=== PATIENT | male | born 1960 | race Caucasian/White ===

== ENCOUNTER 2017-11-23 09:32 | Inpatient (IN) | payer MEDICAID, OTHER ==
[~2017-11-23] VITALS: Ht 181.6 cm; Wt 165.9 kg
[2017-11-23] MEDS ORDERED: SODIUM CHLORIDE FLUSH 10ML SYR IVF ONE (10:00)
[2017-11-23 10:13] LABS: BASOPHILS # (AUTO) 0.05 x10^3/uL (0-0.1); BASOPHILS % (AUTO) 1 % (0-1); EOSINOPHILS # (AUTO) 0.15 x10^3/uL (0-0.4); EOSINOPHILS % (AUTO) 2 % (1-7); LYMPHOCYTES # (AUTO) 1.17 x10^3/uL (1-3.4); LYMPHOCYTES % (AUTO) 17 % (22-44); MD NO; MEAN CORPUSCULAR HEMOGLOBIN 27.8 pg (27.5-34.5); MEAN CORPUSCULAR HGB CONC 33.7 g/dL (33.2-36.2); MEAN CORPUSCULAR VOLUME 82.5 fL (81-97); MEAN PLATELET VOLUME 8.1 fL (7.4-10.4); MONOCYTES # (AUTO) 0.38 x10^3/uL (0.2-0.8); MONOCYTES % (AUTO) 6 % (2-9); NEUTROPHILS # (AUTO) 5.16 x10^3/uL (1.8-6.8); NEUTROPHILS % (AUTO) 75 % (42-75); PLATELET COUNT 248 x10^3/uL (130-400); RED BLOOD COUNT 5.57 x10^6/uL (4.38-5.82); RED CELL DISTRIBUTION WIDTH 14.7 % (9.4-14.8)
[2017-11-23] MEDS ORDERED: VANCOMYCIN PER PHARMACY MC ONE (10:30)
[2017-11-23] MEDS ORDERED: AMPICILLIN/SULBACTAM 3 GM in SODIUM CHLORIDE 0.9% 100 ML IV ONE (10:30)
[2017-11-23 10:38] LABS: ALBUMIN 3.5 g/dL (3.4-5.0); ANION GAP 8 mmol/L (5-15); CALCIUM 9.1 mg/dL (8.5-10.1); CHLORIDE 109 mmol/L (98-107)
[2017-11-23 10:42] LABS: ALANINE AMINOTRANSFERASE 26 U/L (12-78); ALKALINE PHOSPHATASE 83 U/L (45-117); BILIRUBIN,TOTAL 1.3 mg/dL (0.2-1.0)
[2017-11-23] MEDS ORDERED: VANCOMYCIN 2,300 MG in SODIUM CHLORIDE 0.9% 500 ML IV ONE (11:30)
[2017-11-23] MEDS ORDERED: ENALAPRILAT 1.25 MG/ML, 2ML IV ONE (12:30)
[2017-11-23] MEDS ORDERED: FUROSEMIDE 20 MG/2 ML IV ONE (12:30)
[2017-11-23] MEDS ORDERED: FUROSEMIDE 40 MG/4 ML ONE (12:31)
[2017-11-23] MEDS ORDERED: ENALAPRILAT 1.25 MG/ML, 2ML ONE (12:31)
[2017-11-23] MEDS ORDERED: hydrALAzine 20 MG/ML, 1ML ONE (12:59)
[2017-11-23] MEDS ORDERED: hydrALAzine 20 MG/ML, 1ML IV ONE (13:00)
[2017-11-23] MEDS ORDERED: hydrALAzine 20 MG/ML, 1ML IVPush PRN (13:30)
[2017-11-23] MEDS ORDERED: BISACODYL 10 MG SUPP PR PRN (13:30)
[2017-11-23] MEDS ORDERED: ONDANSETRON 2MG/ML, 2ML IVPush PRN (13:30)
[2017-11-23] MEDS ORDERED: LABETALOL 5MG/ML, 20ML IVPush PRN (13:30)
[2017-11-23] MEDS ORDERED: ACETAMINOPHEN 325 MG TABLET PO PRN (13:30)
[2017-11-23] MEDS ORDERED: DOCUSATE 100 MG CAPSULE PO PRN (13:30)
[2017-11-23] MEDS ORDERED: POLYETHYLENE GLYCOL 17 GM PACKET PO PRN (13:30)
[2017-11-23 13:43] LABS: TROPONIN I < 0.015 ng/mL (0.000-0.045)
[2017-11-23] MEDS ORDERED: VANCOMYCIN PER PHARMACY MC PRN (14:00)
[2017-11-23 14:08] LABS: INTERNATIONAL NORMALIZED RATIO 1.08 (0.93-1.1); PROTHROMBIN TIME 11.2 Seconds (9.6-11.5)
[2017-11-23 14:20] LABS: THYROID STIMULATING HORMONE 1.75 mIU/L (0.358-3.740)
[2017-11-23 14:26] LABS: HEMOGLOBIN A1C 6.6 % (4.2-6.3)
[2017-11-23 14:45] VITALS: BP 175/100
[2017-11-23] MEDS: HEPARIN 5,000 UNITS/ML, 1ML SQ SCH ×2 (15:01→23:27)
[2017-11-23 16:45] VITALS: BP 180/88
[2017-11-23] MEDS: FUROSEMIDE 20 MG/2 ML IV SCH (17:10)
[2017-11-23] MEDS: AMPICILLIN/SULBACTAM 3 GM in SODIUM CHLORIDE 0.9% 100 ML IV SCH ×2 (17:11→23:27)
[2017-11-23] MEDS: POTASSIUM CHLORIDE 20 MEQ TAB.ER.PRT PO SCH (17:17)
[2017-11-23] MEDS ORDERED: OMNIPAQUE 350 MG/ML, 150 ML BOTTLE ONE (17:53)
[2017-11-23 19:19] LABS: TROPONIN I < 0.015 ng/mL (0.000-0.045)
[2017-11-23 20:00] VITALS: BP 188/84
[2017-11-24] VITALS (7 sets, daily range): BP systolic 87–182; BP diastolic 54–106
[2017-11-24] MEDS: VANCOMYCIN 2,000 MG in SODIUM CHLORIDE 0.9% 500 ML IV SCH ×2 (00:27→12:17)
[2017-11-24 02:17] LABS: BASOPHILS # (AUTO) 0.04 x10^3/uL (0-0.1); BASOPHILS % (AUTO) 1 % (0-1); EOSINOPHILS # (AUTO) 0.21 x10^3/uL (0-0.4); EOSINOPHILS % (AUTO) 2 % (1-7); LYMPHOCYTES # (AUTO) 1.89 x10^3/uL (1-3.4); LYMPHOCYTES % (AUTO) 22 % (22-44); MD NO; MEAN CORPUSCULAR HEMOGLOBIN 27.8 pg (27.5-34.5); MEAN CORPUSCULAR HGB CONC 33.3 g/dL (33.2-36.2); MEAN CORPUSCULAR VOLUME 83.5 fL (81-97); MEAN PLATELET VOLUME 8.4 fL (7.4-10.4); MONOCYTES % (AUTO) 8 % (2-9); NEUTROPHILS # (AUTO) 5.74 x10^3/uL (1.8-6.8); NEUTROPHILS % (AUTO) 67 % (42-75); PLATELET COUNT 254 x10^3/uL (130-400); RED BLOOD COUNT 5.53 x10^6/uL (4.38-5.82); RED CELL DISTRIBUTION WIDTH 15.1 % (9.4-14.8)
[2017-11-24 02:24] LABS: ANION GAP 1 mmol/L (5-15); CALCIUM 8.7 mg/dL (8.5-10.1); CHLORIDE 107 mmol/L (98-107); CREATININE 1.29 mg/dL (0.7-1.3)
[2017-11-24 02:27] LABS: CHOL/HDL RATIO 4.5; CHOLESTEROL, TOTAL 143 mg/dL (140-239); HDL CHOL % 22 % (26-37); HDL CHOLESTEROL (DIRECT) 32 mg/dL (40-60); LDL CHOLESTEROL,CALCULATED 94 mg/dL (54-169); LDL/HDL RATIO 2.9 (0.5-3.0); TRIGLYCERIDES 84 mg/dL (50-200); TROPONIN I < 0.015 ng/mL (0.000-0.045); VLDL CHOLESTEROL 17 mg/dL (0-25)
[2017-11-24] MEDS: AMPICILLIN/SULBACTAM 3 GM in SODIUM CHLORIDE 0.9% 100 ML IV SCH ×3 (07:45→19:44)
[2017-11-24] MEDS: HEPARIN 5,000 UNITS/ML, 1ML SQ SCH ×2 (07:46→15:22)
[2017-11-24] MEDS: FUROSEMIDE 20 MG/2 ML IV SCH ×2 (07:46→16:49)
[2017-11-24] MEDS: LISINOPRIL 20 MG TABLET PO SCH ×2 (08:29→19:45)
[2017-11-24] MEDS: POTASSIUM CHLORIDE 20 MEQ TAB.ER.PRT PO SCH ×2 (08:29→16:49)
[2017-11-24] MEDS: SENNA/DOCUSATE TABLET PO SCH (08:29)
[2017-11-24] MEDS: ENALAPRILAT 1.25 MG/ML, 2ML IVPush PRN ×2 (10:21→15:54)
[2017-11-25] MEDS: HEPARIN 5,000 UNITS/ML, 1ML SQ SCH ×3 (00:28→17:45)
[2017-11-25] MEDS: VANCOMYCIN 2,000 MG in SODIUM CHLORIDE 0.9% 500 ML IV SCH ×2 (00:28→17:45)
[2017-11-25 01:03] VITALS: BP 176/80
[2017-11-25] MEDS: AMPICILLIN/SULBACTAM 3 GM in SODIUM CHLORIDE 0.9% 100 ML IV SCH ×4 (02:42→21:06)
[2017-11-25 05:48] LABS: BASOPHILS # (AUTO) 0.04 x10^3/uL (0-0.1); BASOPHILS % (AUTO) 1 % (0-1); EOSINOPHILS # (AUTO) 0.32 x10^3/uL (0-0.4); EOSINOPHILS % (AUTO) 5 % (1-7); LYMPHOCYTES # (AUTO) 1.79 x10^3/uL (1-3.4); LYMPHOCYTES % (AUTO) 27 % (22-44); MD NO; MEAN CORPUSCULAR HEMOGLOBIN 27.5 pg (27.5-34.5); MEAN CORPUSCULAR VOLUME 83.4 fL (81-97); MEAN PLATELET VOLUME 8.7 fL (7.4-10.4); MONOCYTES # (AUTO) 0.55 x10^3/uL (0.2-0.8); MONOCYTES % (AUTO) 8 % (2-9); NEUTROPHILS # (AUTO) 4.04 x10^3/uL (1.8-6.8); NEUTROPHILS % (AUTO) 60 % (42-75); PLATELET COUNT 232 x10^3/uL (130-400); RED CELL DISTRIBUTION WIDTH 15.7 % (9.4-14.8)
[2017-11-25 05:52] LABS: ANION GAP 7 mmol/L (5-15); CALCIUM 9.2 mg/dL (8.5-10.1); CHLORIDE 109 mmol/L (98-107)
[2017-11-25 05:53] LABS: CREATININE 1.03 mg/dL (0.7-1.3)
[2017-11-25 07:55] VITALS: BP 162/96
[2017-11-25] MEDS: LISINOPRIL 20 MG TABLET PO SCH ×2 (07:58→21:06)
[2017-11-25] MEDS: POTASSIUM CHLORIDE 20 MEQ TAB.ER.PRT PO SCH ×2 (07:59→17:45)
[2017-11-25] MEDS: FUROSEMIDE 20 MG/2 ML IV SCH ×2 (08:02→17:46)
[2017-11-25] MEDS: SENNA/DOCUSATE TABLET PO SCH (08:03)
[2017-11-25] MEDS: CHLORTHALIDONE 25 MG TABLET PO SCH (14:33)
[2017-11-25 17:16] VITALS: BP 184/99
[2017-11-25] MEDS: ENALAPRILAT 1.25 MG/ML, 2ML IVPush PRN (17:57)
[2017-11-25 18:40] VITALS: BP 155/86
[2017-11-26] MEDS: HEPARIN 5,000 UNITS/ML, 1ML SQ SCH ×3 (00:09→17:10)
[2017-11-26] MEDS: AMPICILLIN/SULBACTAM 3 GM in SODIUM CHLORIDE 0.9% 100 ML IV SCH ×4 (03:22→20:47)
[2017-11-26 03:52] VITALS: BP 159/85
[2017-11-26] MEDS ORDERED: DIPHENHYDRAMINE 50 MG CAPSULE PO PRN (07:00)
[2017-11-26 07:05] VITALS: BP 171/91
[2017-11-26] MEDS: SENNA/DOCUSATE TABLET PO SCH (09:00)
[2017-11-26] MEDS: FUROSEMIDE 20 MG/2 ML IV SCH ×2 (09:05→17:09)
[2017-11-26] MEDS: CHLORTHALIDONE 25 MG TABLET PO SCH (09:05)
[2017-11-26] MEDS: POTASSIUM CHLORIDE 20 MEQ TAB.ER.PRT PO SCH ×2 (09:05→17:10)
[2017-11-26] MEDS: LISINOPRIL 20 MG TABLET PO SCH ×2 (09:06→20:47)
[2017-11-26] MEDS: VANCOMYCIN 2,000 MG in SODIUM CHLORIDE 0.9% 500 ML IV SCH (12:38)
[2017-11-26] MEDS: AMLODIPINE 5 MG TABLET PO SCH ×2 (12:38→20:47)
[2017-11-26 17:12] VITALS: BP 165/85
[2017-11-26 19:18] VITALS: BP 152/83
[2017-11-27] MEDS: HEPARIN 5,000 UNITS/ML, 1ML SQ SCH ×3 (01:06→15:50)
[2017-11-27 01:34] VITALS: BP 146/70
[2017-11-27] MEDS: AMPICILLIN/SULBACTAM 3 GM in SODIUM CHLORIDE 0.9% 100 ML IV SCH ×2 (03:16→11:10)
[2017-11-27 05:07] LABS: ALBUMIN 3.1 g/dL (3.4-5.0); ANION GAP 5 mmol/L (5-15); CHLORIDE 105 mmol/L (98-107); CREATININE 1.21 mg/dL (0.7-1.3)
[2017-11-27] MEDS: VANCOMYCIN 2,000 MG in SODIUM CHLORIDE 0.9% 500 ML IV SCH (05:40)
[2017-11-27 07:21] VITALS: BP 151/90
[2017-11-27] MEDS: POTASSIUM CHLORIDE 20 MEQ TAB.ER.PRT PO SCH ×2 (07:52→15:50)
[2017-11-27] MEDS: FUROSEMIDE 20 MG/2 ML IV SCH ×2 (07:52→15:50)
[2017-11-27] MEDS: SENNA/DOCUSATE TABLET PO SCH (08:17)
[2017-11-27] MEDS: CHLORTHALIDONE 25 MG TABLET PO SCH (11:10)
[2017-11-27] MEDS: AMLODIPINE 5 MG TABLET PO SCH ×2 (11:10→21:42)
[2017-11-27] MEDS: LISINOPRIL 20 MG TABLET PO SCH ×2 (11:10→21:42)
[2017-11-27 13:32] VITALS: BP 119/71
[2017-11-27 18:42] VITALS: BP 127/78
[2017-11-27] MEDS: ATORVASTATIN 40 MG TABLET PO SCH (21:42)
[2017-11-28] MEDS: HEPARIN 5,000 UNITS/ML, 1ML SQ SCH ×3 (00:33→17:11)
[2017-11-28] MEDS: VANCOMYCIN 2,000 MG in SODIUM CHLORIDE 0.9% 500 ML IV SCH ×2 (00:33→18:35)
[2017-11-28 00:42] VITALS: BP 132/72
[2017-11-28] MEDS: FUROSEMIDE 20 MG/2 ML IV SCH ×2 (08:43→17:11)
[2017-11-28] MEDS: CHLORTHALIDONE 25 MG TABLET PO SCH (08:44)
[2017-11-28] MEDS: AMLODIPINE 5 MG TABLET PO SCH ×2 (08:44→20:40)
[2017-11-28] MEDS: SENNA/DOCUSATE TABLET PO SCH (08:44)
[2017-11-28] MEDS: POTASSIUM CHLORIDE 20 MEQ TAB.ER.PRT PO SCH ×2 (08:44→17:11)
[2017-11-28] MEDS: LISINOPRIL 20 MG TABLET PO SCH ×2 (08:44→20:40)
[2017-11-28 12:07] VITALS: BP 131/79
[2017-11-28 15:30] VITALS: BP 127/73
[2017-11-28 20:00] VITALS: BP 131/75
[2017-11-28] MEDS: ATORVASTATIN 40 MG TABLET PO SCH (20:40)
[2017-11-29 02:00] VITALS: BP 137/76
[2017-11-29] MEDS: HEPARIN 5,000 UNITS/ML, 1ML SQ SCH ×3 (05:19→20:55)
[2017-11-29 08:39] VITALS: BP 136/87
[2017-11-29] MEDS: AMLODIPINE 5 MG TABLET PO SCH ×2 (08:47→20:55)
[2017-11-29] MEDS: SENNA/DOCUSATE TABLET PO SCH (08:47)
[2017-11-29] MEDS: POTASSIUM CHLORIDE 20 MEQ TAB.ER.PRT PO SCH ×2 (08:47→17:28)
[2017-11-29] MEDS: CHLORTHALIDONE 25 MG TABLET PO SCH (08:48)
[2017-11-29] MEDS: LISINOPRIL 20 MG TABLET PO SCH ×2 (08:48→20:55)
[2017-11-29] MEDS: FUROSEMIDE 20 MG/2 ML IV SCH ×2 (08:51→17:28)
[2017-11-29] MEDS: VANCOMYCIN 2,000 MG in SODIUM CHLORIDE 0.9% 500 ML IV SCH (12:29)
[2017-11-29 16:53] VITALS: BP 146/76
[2017-11-29 20:00] VITALS: BP 136/74
[2017-11-29] MEDS: ATORVASTATIN 40 MG TABLET PO SCH (20:54)
[2017-11-30 02:00] VITALS: BP 125/83
[2017-11-30] MEDS: HEPARIN 5,000 UNITS/ML, 1ML SQ SCH ×2 (05:49→13:00)
[2017-11-30 05:58] LABS: ALBUMIN 3.5 g/dL (3.4-5.0); ANION GAP 10 mmol/L (5-15); CALCIUM 9.9 mg/dL (8.5-10.1); CHLORIDE 103 mmol/L (98-107); CREATININE 1.29 mg/dL (0.7-1.3)
[2017-11-30] MEDS: FUROSEMIDE 20 MG/2 ML IV SCH (08:46)
[2017-11-30] MEDS: LISINOPRIL 20 MG TABLET PO SCH (08:46)
[2017-11-30] MEDS: POTASSIUM CHLORIDE 20 MEQ TAB.ER.PRT PO SCH (08:46)
[2017-11-30] MEDS: SENNA/DOCUSATE TABLET PO SCH (08:46)
[2017-11-30] MEDS: AMLODIPINE 5 MG TABLET PO SCH (08:47)
[2017-11-30] MEDS: CHLORTHALIDONE 25 MG TABLET PO SCH (08:47)
[2017-11-30 09:00] VITALS: BP 126/82
[2017-11-30] MEDS ORDERED: SULFAMETH./TRIMETHOPRIM DS 800MG/160MG TABLET PO SCH (09:30)
[2017-11-30] MEDS ORDERED: AMOXICILLIN/CLAV 1000-62.5MG TABLET ER.12H PO SCH (09:30)
[2017-11-30] MEDS ORDERED: DOCU-131 PO (10:07)
[2017-11-30] MEDS ORDERED: CHLO25TA PO (10:07)
[2017-11-30] MEDS ORDERED: SULF-169 PO (10:07)
[2017-11-30] MEDS ORDERED: AMOX1TAB26 PO (10:07)
[2017-11-30] MEDS ORDERED: AMLO5TAB2 PO (10:07)
[2017-11-30] MEDS ORDERED: DIPH50CA PO (10:07)
[2017-11-30] MEDS ORDERED: LISI-170 PO (10:07)
[2017-11-30] MEDS ORDERED: ATOR40TA78 PO (10:07)
[2017-11-30] MEDS ORDERED: HYDR20VI3 IVPush (10:07)
[2017-11-30] MEDS ORDERED: ACET325T14 PO (10:07)
[2017-11-30] MEDS ORDERED: FURO40TA6 PO (10:07)
[2017-11-30] MEDS ORDERED: VANCOMYCIN 2,000 MG in SODIUM CHLORIDE 0.9% 500 ML IV ONE (15:00)
[2017-11-30 15:57] VITALS: BP 128/77
[2017-12-01] MEDS ORDERED: FUROSEMIDE 40 MG TABLET PO SCH (09:00)
== END 2017-11-30 19:00 | DRG 292 ==
LOC: ED 12:17 → EDIP 12:18 → ED 12:27 → 4WST 14:08
PROVIDERS: ADMIT Internal Medicine; ATTEND Internal Medicine
DX: I11.0 Hypertensive heart disease with heart failure (principal); L03.116 Cellulitis of left lower limb; Z68.43 Body mass index [BMI] 50.0-59.9, adult; E66.01 Morbid (severe) obesity due to excess calories; G47.33 Obstructive sleep apnea (adult) (pediatric); I44.1 Atrioventricular block, second degree; I50.9 Heart failure, unspecified; B95.62 Methicillin resistant Staphylococcus aureus infection as the cause of diseases classified elsewhere; Z82.49 Family history of ischemic heart disease and other diseases of the circulatory system; Z87.891 Personal history of nicotine dependence; Z91.19 Patient's noncompliance with other medical treatment and regimen
CPT/HCPCS: 36415; 71045; 80048; 80053; 80061; 80202; 82040; 83036; 83605; 83735; 83880; 84100; 84443; 84484; 85025; 85610; 85651; 86140; 87040; 87070; 87077; 87147; 87186; 87205; 93005; 93306; 93922; 96365; 96375; 99285; J0295; J1644; J2405; J3370; Q9967; J0360; J1940; J7040

== ENCOUNTER → 2017-12-23 | Outpatient (CLI) | payer MEDICAID ==
[~2017-12-23] MED LIST: ACET325T14 PO; AMLO5TAB2 PO; AMOX1TAB26 PO; ATOR40TA78 PO; CHLO25TA PO; DIPH50CA PO; DOCU-131 PO; FURO40TA6 PO; HYDR20VI3 IVPush; LISI-170 PO; SULF-169 PO
== END | disposition home or self-care (01) ==
LOC: WOUND 09:18
PROVIDERS: ATTEND Family Medicine
DX: L98.422 Non-pressure chronic ulcer of back with fat layer exposed (principal); E66.01 Morbid (severe) obesity due to excess calories; G47.33 Obstructive sleep apnea (adult) (pediatric); I11.0 Hypertensive heart disease with heart failure; I50.9 Heart failure, unspecified; Z87.891 Personal history of nicotine dependence; Z86.711 Personal history of pulmonary embolism; Z68.43 Body mass index [BMI] 50.0-59.9, adult
CPT/HCPCS: 11100; 99205; 99215

== ENCOUNTER → 2017-12-30 | Outpatient (CLI) | payer MEDICAID | END | disposition home or self-care (01) | LOC: WOUND 08:09 | PROVIDERS: ATTEND Family Medicine | DX: L98.422 Non-pressure chronic ulcer of back with fat layer exposed (principal); C44.519 Basal cell carcinoma of skin of other part of trunk; I11.0 Hypertensive heart disease with heart failure; I50.9 Heart failure, unspecified; E66.01 Morbid (severe) obesity due to excess calories; G47.33 Obstructive sleep apnea (adult) (pediatric); Z68.43 Body mass index [BMI] 50.0-59.9, adult; Z87.891 Personal history of nicotine dependence; Z86.711 Personal history of pulmonary embolism | CPT/HCPCS: 99213 ==

== ENCOUNTER → 2018-04-21 | Outpatient (CLI) | payer MEDICAID ==
[~2018-04-21] MED LIST changes: +AMLO-150 PO; -AMLO5TAB2 PO
== END | disposition home or self-care (01) ==
LOC: WOUND 13:45
PROVIDERS: ATTEND Family Medicine
DX: L98.422 Non-pressure chronic ulcer of back with fat layer exposed (principal); C44.519 Basal cell carcinoma of skin of other part of trunk; L59.8 Other specified disorders of the skin and subcutaneous tissue related to radiation; I11.0 Hypertensive heart disease with heart failure; I50.9 Heart failure, unspecified; G47.33 Obstructive sleep apnea (adult) (pediatric); E66.01 Morbid (severe) obesity due to excess calories; Z68.43 Body mass index [BMI] 50.0-59.9, adult; Z87.891 Personal history of nicotine dependence; Z86.711 Personal history of pulmonary embolism; Z85.828 Personal history of other malignant neoplasm of skin
CPT/HCPCS: 99215

== ENCOUNTER → 2018-04-28 | Outpatient (CLI) | payer MEDICAID | END | disposition home or self-care (01) | LOC: CFH 14:47 | PROVIDERS: ATTEND Family Medicine | DX: Z01.818 Encounter for other preprocedural examination (principal); C44.519 Basal cell carcinoma of skin of other part of trunk; L59.8 Other specified disorders of the skin and subcutaneous tissue related to radiation; L98.422 Non-pressure chronic ulcer of back with fat layer exposed | CPT/HCPCS: 71046 ==

== ENCOUNTER → 2018-04-28 | Outpatient (CLI) | payer MEDICAID | END | disposition home or self-care (01) | LOC: WOUND 13:54 | PROVIDERS: ATTEND Family Medicine | DX: L98.422 Non-pressure chronic ulcer of back with fat layer exposed (principal); C44.519 Basal cell carcinoma of skin of other part of trunk; L59.8 Other specified disorders of the skin and subcutaneous tissue related to radiation; I11.0 Hypertensive heart disease with heart failure; I50.9 Heart failure, unspecified; G47.33 Obstructive sleep apnea (adult) (pediatric); E66.01 Morbid (severe) obesity due to excess calories; Z87.891 Personal history of nicotine dependence; Z86.711 Personal history of pulmonary embolism; Z85.828 Personal history of other malignant neoplasm of skin; Z68.43 Body mass index [BMI] 50.0-59.9, adult | CPT/HCPCS: 97597; 97598 ==

== ENCOUNTER → 2018-05-02 | Outpatient (CLI) | payer MEDICAID | END | disposition home or self-care (01) | LOC: WOUND 14:28 | PROVIDERS: ATTEND Internal Medicine Cardiovascular Disease | DX: L98.422 Non-pressure chronic ulcer of back with fat layer exposed (principal); T66.XXXD Radiation sickness, unspecified, subsequent encounter; C44.519 Basal cell carcinoma of skin of other part of trunk; I11.0 Hypertensive heart disease with heart failure; I50.9 Heart failure, unspecified; E66.01 Morbid (severe) obesity due to excess calories; G47.33 Obstructive sleep apnea (adult) (pediatric); Z87.891 Personal history of nicotine dependence; Z86.711 Personal history of pulmonary embolism; Z85.828 Personal history of other malignant neoplasm of skin | CPT/HCPCS: 99213 ==

== ENCOUNTER → 2018-05-05 | Outpatient (CLI) | payer MEDICAID | END | disposition home or self-care (01) | LOC: WOUND 14:08 | PROVIDERS: ATTEND Family Medicine | DX: L98.422 Non-pressure chronic ulcer of back with fat layer exposed (principal); C44.519 Basal cell carcinoma of skin of other part of trunk; L59.8 Other specified disorders of the skin and subcutaneous tissue related to radiation; I11.0 Hypertensive heart disease with heart failure; I50.9 Heart failure, unspecified; G47.33 Obstructive sleep apnea (adult) (pediatric); E66.01 Morbid (severe) obesity due to excess calories; Z87.891 Personal history of nicotine dependence; Z86.711 Personal history of pulmonary embolism; Z85.828 Personal history of other malignant neoplasm of skin; Z68.43 Body mass index [BMI] 50.0-59.9, adult | CPT/HCPCS: 97597; 97598 ==

== ENCOUNTER → 2018-05-12 | Outpatient (CLI) | payer MEDICAID | END | disposition home or self-care (01) | LOC: WOUND 10:48 | PROVIDERS: ATTEND Family Medicine | DX: L98.422 Non-pressure chronic ulcer of back with fat layer exposed (principal); C44.519 Basal cell carcinoma of skin of other part of trunk; L59.8 Other specified disorders of the skin and subcutaneous tissue related to radiation; I11.0 Hypertensive heart disease with heart failure; I50.9 Heart failure, unspecified; G47.33 Obstructive sleep apnea (adult) (pediatric); E66.01 Morbid (severe) obesity due to excess calories; Z87.891 Personal history of nicotine dependence; Z86.711 Personal history of pulmonary embolism; Z85.828 Personal history of other malignant neoplasm of skin; Z68.43 Body mass index [BMI] 50.0-59.9, adult | CPT/HCPCS: 97597; 97598 ==

== ENCOUNTER → 2018-05-17 | Outpatient (CLI) | payer MEDICAID | END | disposition home or self-care (01) | LOC: WOUND 10:34 | PROVIDERS: ATTEND Internal Medicine | DX: L98.422 Non-pressure chronic ulcer of back with fat layer exposed (principal); C44.519 Basal cell carcinoma of skin of other part of trunk; T66.XXXD Radiation sickness, unspecified, subsequent encounter; I11.0 Hypertensive heart disease with heart failure; I50.9 Heart failure, unspecified; G47.33 Obstructive sleep apnea (adult) (pediatric); E66.01 Morbid (severe) obesity due to excess calories; Z87.891 Personal history of nicotine dependence; Z86.711 Personal history of pulmonary embolism; Z85.828 Personal history of other malignant neoplasm of skin | CPT/HCPCS: 99213 ==

== ENCOUNTER → 2018-05-19 | Outpatient (CLI) | payer MEDICAID | END | disposition home or self-care (01) | LOC: WOUND 13:35 | PROVIDERS: ATTEND Family Medicine | DX: L98.422 Non-pressure chronic ulcer of back with fat layer exposed (principal); C44.519 Basal cell carcinoma of skin of other part of trunk; L59.8 Other specified disorders of the skin and subcutaneous tissue related to radiation; I11.0 Hypertensive heart disease with heart failure; I50.9 Heart failure, unspecified; G47.33 Obstructive sleep apnea (adult) (pediatric); E66.01 Morbid (severe) obesity due to excess calories; Z87.891 Personal history of nicotine dependence; Z86.711 Personal history of pulmonary embolism; Z85.828 Personal history of other malignant neoplasm of skin; Z68.43 Body mass index [BMI] 50.0-59.9, adult | CPT/HCPCS: 97597; 97598 ==

== ENCOUNTER 2018-05-23 10:29 | Outpatient (CLI) | payer MEDICAID | END 2018-05-23 23:59 | disposition home or self-care (01) | LOC: WOUND 10:29 | PROVIDERS: ATTEND Internal Medicine Cardiovascular Disease | DX: T66.XXXD Radiation sickness, unspecified, subsequent encounter (principal); L98.422 Non-pressure chronic ulcer of back with fat layer exposed; E66.01 Morbid (severe) obesity due to excess calories; I11.0 Hypertensive heart disease with heart failure; I50.9 Heart failure, unspecified; C44.519 Basal cell carcinoma of skin of other part of trunk; G47.33 Obstructive sleep apnea (adult) (pediatric); Z85.820 Personal history of malignant melanoma of skin; Z87.891 Personal history of nicotine dependence; Z86.711 Personal history of pulmonary embolism | CPT/HCPCS: 99213 ==

== ENCOUNTER → 2018-05-26 | Outpatient (CLI) | payer MEDICAID | END | disposition home or self-care (01) | LOC: WOUND 13:00 | PROVIDERS: ATTEND Family Medicine | DX: T66.XXXD Radiation sickness, unspecified, subsequent encounter (principal); L98.422 Non-pressure chronic ulcer of back with fat layer exposed; I11.0 Hypertensive heart disease with heart failure; I50.9 Heart failure, unspecified; C44.519 Basal cell carcinoma of skin of other part of trunk; E66.01 Morbid (severe) obesity due to excess calories; Z68.43 Body mass index [BMI] 50.0-59.9, adult; Z86.711 Personal history of pulmonary embolism; G47.33 Obstructive sleep apnea (adult) (pediatric); Z85.820 Personal history of malignant melanoma of skin; Z87.891 Personal history of nicotine dependence | CPT/HCPCS: 97597; 97598 ==

== ENCOUNTER 2018-05-29 08:59 | Outpatient (CLI) | payer MEDICAID | END 2018-05-29 23:59 | disposition home or self-care (01) | LOC: WOUND 08:59 | PROVIDERS: ATTEND Internal Medicine | DX: L98.422 Non-pressure chronic ulcer of back with fat layer exposed (principal); E66.01 Morbid (severe) obesity due to excess calories; I11.0 Hypertensive heart disease with heart failure; I50.9 Heart failure, unspecified; C44.519 Basal cell carcinoma of skin of other part of trunk; G47.33 Obstructive sleep apnea (adult) (pediatric); L59.8 Other specified disorders of the skin and subcutaneous tissue related to radiation; Z85.820 Personal history of malignant melanoma of skin; Z87.891 Personal history of nicotine dependence; Z86.711 Personal history of pulmonary embolism; Z68.43 Body mass index [BMI] 50.0-59.9, adult | CPT/HCPCS: 99213 ==

== ENCOUNTER 2018-06-02 09:46 | Outpatient (CLI) | payer MEDICAID | END 2018-06-02 23:59 | disposition home or self-care (01) | LOC: WOUND 09:46 | PROVIDERS: ATTEND Family Medicine | DX: T66.XXXD Radiation sickness, unspecified, subsequent encounter (principal); L98.422 Non-pressure chronic ulcer of back with fat layer exposed; C44.519 Basal cell carcinoma of skin of other part of trunk; I11.0 Hypertensive heart disease with heart failure; I50.9 Heart failure, unspecified; G47.33 Obstructive sleep apnea (adult) (pediatric); E66.01 Morbid (severe) obesity due to excess calories; Z68.43 Body mass index [BMI] 50.0-59.9, adult; Z86.711 Personal history of pulmonary embolism; Z87.891 Personal history of nicotine dependence; Z85.820 Personal history of malignant melanoma of skin | CPT/HCPCS: 97597; 97598 ==

== ENCOUNTER → 2018-06-06 | Outpatient (CLI) | payer MEDICAID | END | disposition home or self-care (01) | LOC: WOUND 09:33 | PROVIDERS: ATTEND Internal Medicine Cardiovascular Disease | DX: T66.XXXD Radiation sickness, unspecified, subsequent encounter (principal); C44.519 Basal cell carcinoma of skin of other part of trunk; L98.422 Non-pressure chronic ulcer of back with fat layer exposed; I11.0 Hypertensive heart disease with heart failure; I50.9 Heart failure, unspecified; E66.01 Morbid (severe) obesity due to excess calories; G47.33 Obstructive sleep apnea (adult) (pediatric); Z86.711 Personal history of pulmonary embolism; Z85.820 Personal history of malignant melanoma of skin; Z87.891 Personal history of nicotine dependence | CPT/HCPCS: 99213 ==

== ENCOUNTER → 2018-06-09 | Outpatient (CLI) | payer MEDICAID | END | disposition home or self-care (01) | LOC: WOUND 09:12 | PROVIDERS: ATTEND Family Medicine | DX: T66.XXXD Radiation sickness, unspecified, subsequent encounter (principal); L98.422 Non-pressure chronic ulcer of back with fat layer exposed; C44.519 Basal cell carcinoma of skin of other part of trunk; I11.0 Hypertensive heart disease with heart failure; I50.9 Heart failure, unspecified; G47.33 Obstructive sleep apnea (adult) (pediatric); E66.01 Morbid (severe) obesity due to excess calories; Z68.43 Body mass index [BMI] 50.0-59.9, adult; Z85.828 Personal history of other malignant neoplasm of skin; Z87.891 Personal history of nicotine dependence; Z86.711 Personal history of pulmonary embolism | CPT/HCPCS: 97597; 97598 ==

== ENCOUNTER → 2018-06-13 | Outpatient (CLI) | payer MEDICAID | END | disposition home or self-care (01) | LOC: WOUND 09:18 | PROVIDERS: ATTEND Nurse Practitioner Family | DX: T66.XXXD Radiation sickness, unspecified, subsequent encounter (principal); L98.422 Non-pressure chronic ulcer of back with fat layer exposed; C44.519 Basal cell carcinoma of skin of other part of trunk; I11.0 Hypertensive heart disease with heart failure; I50.9 Heart failure, unspecified; G47.33 Obstructive sleep apnea (adult) (pediatric); E66.01 Morbid (severe) obesity due to excess calories; Z86.711 Personal history of pulmonary embolism; Z87.891 Personal history of nicotine dependence; Z85.828 Personal history of other malignant neoplasm of skin | CPT/HCPCS: 99213 ==

== ENCOUNTER → 2018-06-16 | Outpatient (CLI) | payer MEDICAID | END | disposition home or self-care (01) | LOC: WOUND 09:08 | PROVIDERS: ATTEND Family Medicine | DX: T66.XXXD Radiation sickness, unspecified, subsequent encounter (principal); L98.422 Non-pressure chronic ulcer of back with fat layer exposed; C44.519 Basal cell carcinoma of skin of other part of trunk; I11.0 Hypertensive heart disease with heart failure; I50.9 Heart failure, unspecified; G47.33 Obstructive sleep apnea (adult) (pediatric); E66.01 Morbid (severe) obesity due to excess calories; Z68.43 Body mass index [BMI] 50.0-59.9, adult; Z85.828 Personal history of other malignant neoplasm of skin; Z86.711 Personal history of pulmonary embolism; Z87.891 Personal history of nicotine dependence | CPT/HCPCS: 97597; 97598 ==

== ENCOUNTER → 2018-06-19 | Outpatient (CLI) | payer MEDICAID | END | disposition home or self-care (01) | LOC: WOUND 09:06 | PROVIDERS: ATTEND Family Medicine | DX: T66.XXXD Radiation sickness, unspecified, subsequent encounter (principal); L98.422 Non-pressure chronic ulcer of back with fat layer exposed; C44.519 Basal cell carcinoma of skin of other part of trunk; I11.0 Hypertensive heart disease with heart failure; I50.9 Heart failure, unspecified; E66.01 Morbid (severe) obesity due to excess calories; G47.33 Obstructive sleep apnea (adult) (pediatric); Z85.820 Personal history of malignant melanoma of skin; Z87.891 Personal history of nicotine dependence; Z86.711 Personal history of pulmonary embolism | CPT/HCPCS: 99214 ==

== ENCOUNTER → 2018-06-21 | Outpatient (CLI) | payer MEDICAID | END | disposition home or self-care (01) | LOC: WOUND 09:08 | PROVIDERS: ATTEND Internal Medicine Cardiovascular Disease | DX: T66.XXXD Radiation sickness, unspecified, subsequent encounter (principal); L98.422 Non-pressure chronic ulcer of back with fat layer exposed; C44.519 Basal cell carcinoma of skin of other part of trunk; I11.0 Hypertensive heart disease with heart failure; I50.9 Heart failure, unspecified; G47.33 Obstructive sleep apnea (adult) (pediatric); E66.01 Morbid (severe) obesity due to excess calories; Z85.828 Personal history of other malignant neoplasm of skin; Z87.891 Personal history of nicotine dependence; Z86.711 Personal history of pulmonary embolism | CPT/HCPCS: 99213 ==

== ENCOUNTER → 2018-06-23 | Outpatient (CLI) | payer MEDICAID | END | disposition home or self-care (01) | LOC: WOUND 09:14 | PROVIDERS: ATTEND Family Medicine | DX: T66.XXXD Radiation sickness, unspecified, subsequent encounter (principal); L98.422 Non-pressure chronic ulcer of back with fat layer exposed; C44.519 Basal cell carcinoma of skin of other part of trunk; I11.0 Hypertensive heart disease with heart failure; I50.9 Heart failure, unspecified; G47.33 Obstructive sleep apnea (adult) (pediatric); E66.01 Morbid (severe) obesity due to excess calories; Z68.43 Body mass index [BMI] 50.0-59.9, adult; Z85.820 Personal history of malignant melanoma of skin; Z87.891 Personal history of nicotine dependence; Z86.711 Personal history of pulmonary embolism | CPT/HCPCS: 97597; 97598 ==

== ENCOUNTER 2018-06-30 09:11 | Outpatient (CLI) | payer MEDICAID | END 2018-06-30 23:59 | disposition home or self-care (01) | LOC: WOUND 09:11 | PROVIDERS: ATTEND Family Medicine | DX: T66.XXXD Radiation sickness, unspecified, subsequent encounter (principal); L98.422 Non-pressure chronic ulcer of back with fat layer exposed; C44.519 Basal cell carcinoma of skin of other part of trunk; I11.0 Hypertensive heart disease with heart failure; I50.9 Heart failure, unspecified; G47.33 Obstructive sleep apnea (adult) (pediatric); E66.01 Morbid (severe) obesity due to excess calories; Z68.43 Body mass index [BMI] 50.0-59.9, adult; Z85.820 Personal history of malignant melanoma of skin; Z87.891 Personal history of nicotine dependence; Z86.711 Personal history of pulmonary embolism | CPT/HCPCS: 97597; 97598 ==

== ENCOUNTER → 2018-07-03 | Outpatient (CLI) | payer MEDICAID | END | disposition home or self-care (01) | LOC: WOUND 09:08 | PROVIDERS: ATTEND Internal Medicine | DX: T66.XXXD Radiation sickness, unspecified, subsequent encounter (principal); L98.422 Non-pressure chronic ulcer of back with fat layer exposed; C44.519 Basal cell carcinoma of skin of other part of trunk; I11.0 Hypertensive heart disease with heart failure; I50.9 Heart failure, unspecified; E66.01 Morbid (severe) obesity due to excess calories; G47.33 Obstructive sleep apnea (adult) (pediatric); Z86.711 Personal history of pulmonary embolism; Z87.891 Personal history of nicotine dependence; Z85.820 Personal history of malignant melanoma of skin | CPT/HCPCS: 97602 ==

== ENCOUNTER 2018-07-05 09:04 | Outpatient (CLI) | payer MEDICAID | END 2018-07-05 23:59 | disposition home or self-care (01) | LOC: WOUND 09:04 | PROVIDERS: ATTEND Internal Medicine | DX: T66.XXXD Radiation sickness, unspecified, subsequent encounter (principal); L98.422 Non-pressure chronic ulcer of back with fat layer exposed; C44.519 Basal cell carcinoma of skin of other part of trunk; I11.0 Hypertensive heart disease with heart failure; I50.9 Heart failure, unspecified; E66.01 Morbid (severe) obesity due to excess calories; G47.33 Obstructive sleep apnea (adult) (pediatric); Z87.891 Personal history of nicotine dependence; Z86.711 Personal history of pulmonary embolism; Z85.828 Personal history of other malignant neoplasm of skin | CPT/HCPCS: 97602 ==

== ENCOUNTER → 2018-07-07 | Outpatient (CLI) | payer MEDICAID | END | disposition home or self-care (01) | LOC: WOUND 09:18 | PROVIDERS: ATTEND Family Medicine | DX: T66.XXXD Radiation sickness, unspecified, subsequent encounter (principal); L98.422 Non-pressure chronic ulcer of back with fat layer exposed; C44.519 Basal cell carcinoma of skin of other part of trunk; G47.33 Obstructive sleep apnea (adult) (pediatric); I10 Essential (primary) hypertension; E66.01 Morbid (severe) obesity due to excess calories; Z68.43 Body mass index [BMI] 50.0-59.9, adult; Z86.711 Personal history of pulmonary embolism; Z85.828 Personal history of other malignant neoplasm of skin | CPT/HCPCS: 97597; 97598 ==

== ENCOUNTER 2018-07-10 14:32 | Outpatient (CLI) | payer MEDICAID | END 2018-07-10 23:59 | disposition home or self-care (01) | LOC: WOUND 14:32 | PROVIDERS: ATTEND Internal Medicine | DX: T66.XXXD Radiation sickness, unspecified, subsequent encounter (principal); L98.422 Non-pressure chronic ulcer of back with fat layer exposed; C44.519 Basal cell carcinoma of skin of other part of trunk; G47.33 Obstructive sleep apnea (adult) (pediatric); I10 Essential (primary) hypertension; E66.01 Morbid (severe) obesity due to excess calories; Z68.43 Body mass index [BMI] 50.0-59.9, adult; Z86.711 Personal history of pulmonary embolism; Z85.828 Personal history of other malignant neoplasm of skin | CPT/HCPCS: 97602 ==

== ENCOUNTER → 2018-07-12 | Outpatient (CLI) | payer MEDICAID | END | disposition home or self-care (01) | LOC: WOUND 14:57 | PROVIDERS: ATTEND Internal Medicine | DX: T66.XXXD Radiation sickness, unspecified, subsequent encounter (principal); L98.422 Non-pressure chronic ulcer of back with fat layer exposed; C44.519 Basal cell carcinoma of skin of other part of trunk; G47.33 Obstructive sleep apnea (adult) (pediatric); I10 Essential (primary) hypertension; E66.01 Morbid (severe) obesity due to excess calories; Z68.43 Body mass index [BMI] 50.0-59.9, adult; Z86.711 Personal history of pulmonary embolism; Z85.828 Personal history of other malignant neoplasm of skin | CPT/HCPCS: 97602 ==

== ENCOUNTER 2018-07-14 08:59 | Outpatient (CLI) | payer MEDICAID | END 2018-07-14 23:59 | disposition home or self-care (01) | LOC: WOUND 08:59 | PROVIDERS: ATTEND Family Medicine | DX: T66.XXXD Radiation sickness, unspecified, subsequent encounter (principal); L98.422 Non-pressure chronic ulcer of back with fat layer exposed; C44.519 Basal cell carcinoma of skin of other part of trunk; G47.33 Obstructive sleep apnea (adult) (pediatric); I10 Essential (primary) hypertension; E66.01 Morbid (severe) obesity due to excess calories; Z68.43 Body mass index [BMI] 50.0-59.9, adult; Z86.711 Personal history of pulmonary embolism; Z85.828 Personal history of other malignant neoplasm of skin | CPT/HCPCS: 97597; 97598 ==

== ENCOUNTER 2018-07-17 10:53 | Outpatient (CLI) | payer MEDICAID | END 2018-07-17 23:59 | disposition home or self-care (01) | LOC: WOUND 10:53 | PROVIDERS: ATTEND Internal Medicine | DX: T66.XXXD Radiation sickness, unspecified, subsequent encounter (principal); L98.422 Non-pressure chronic ulcer of back with fat layer exposed; C44.519 Basal cell carcinoma of skin of other part of trunk; I11.0 Hypertensive heart disease with heart failure; I50.9 Heart failure, unspecified; G47.33 Obstructive sleep apnea (adult) (pediatric); E66.01 Morbid (severe) obesity due to excess calories; Z68.43 Body mass index [BMI] 50.0-59.9, adult; Z86.711 Personal history of pulmonary embolism; Z85.828 Personal history of other malignant neoplasm of skin; Z87.891 Personal history of nicotine dependence | CPT/HCPCS: 99213 ==

== ENCOUNTER → 2018-07-21 | Outpatient (CLI) | payer MEDICAID | END | disposition home or self-care (01) | LOC: WOUND 09:27 | PROVIDERS: ATTEND Family Medicine | DX: T66.XXXD Radiation sickness, unspecified, subsequent encounter (principal); L98.422 Non-pressure chronic ulcer of back with fat layer exposed; C44.519 Basal cell carcinoma of skin of other part of trunk; I11.0 Hypertensive heart disease with heart failure; I50.9 Heart failure, unspecified; G47.33 Obstructive sleep apnea (adult) (pediatric); E66.01 Morbid (severe) obesity due to excess calories; Z68.43 Body mass index [BMI] 50.0-59.9, adult; Z87.891 Personal history of nicotine dependence; Z85.828 Personal history of other malignant neoplasm of skin | CPT/HCPCS: 97597; 97598 ==

== ENCOUNTER 2018-07-24 09:30 | Outpatient (CLI) | payer MEDICAID | END 2018-07-24 23:59 | disposition home or self-care (01) | LOC: WOUND 09:30 | PROVIDERS: ATTEND Internal Medicine | DX: L98.422 Non-pressure chronic ulcer of back with fat layer exposed (principal); L59.8 Other specified disorders of the skin and subcutaneous tissue related to radiation; C44.519 Basal cell carcinoma of skin of other part of trunk; I11.0 Hypertensive heart disease with heart failure; I50.9 Heart failure, unspecified; E66.01 Morbid (severe) obesity due to excess calories; G47.33 Obstructive sleep apnea (adult) (pediatric); Z86.711 Personal history of pulmonary embolism; Z87.891 Personal history of nicotine dependence; Z85.828 Personal history of other malignant neoplasm of skin | CPT/HCPCS: 99213 ==

== ENCOUNTER → 2018-07-28 | Outpatient (CLI) | payer MEDICAID | END | disposition home or self-care (01) | LOC: WOUND 10:32 | PROVIDERS: ATTEND Family Medicine | DX: L98.422 Non-pressure chronic ulcer of back with fat layer exposed (principal); T66.XXXD Radiation sickness, unspecified, subsequent encounter; I11.0 Hypertensive heart disease with heart failure; I50.9 Heart failure, unspecified; C44.519 Basal cell carcinoma of skin of other part of trunk; G47.33 Obstructive sleep apnea (adult) (pediatric); E66.01 Morbid (severe) obesity due to excess calories; Z68.42 Body mass index [BMI] 45.0-49.9, adult; Z87.891 Personal history of nicotine dependence; Z86.711 Personal history of pulmonary embolism; Z85.828 Personal history of other malignant neoplasm of skin; Y84.2 Radiological procedure and radiotherapy as the cause of abnormal reaction of the patient, or of later complication, without mention of misadventure at the time of the procedure | CPT/HCPCS: 97597; 97598 ==

== ENCOUNTER → 2018-07-31 | Outpatient (CLI) | payer MEDICAID | END | disposition home or self-care (01) | LOC: WOUND 10:42 | PROVIDERS: ATTEND Internal Medicine | DX: L98.422 Non-pressure chronic ulcer of back with fat layer exposed (principal); C44.519 Basal cell carcinoma of skin of other part of trunk; T66.XXXD Radiation sickness, unspecified, subsequent encounter; I11.0 Hypertensive heart disease with heart failure; I50.9 Heart failure, unspecified; E66.01 Morbid (severe) obesity due to excess calories; G47.33 Obstructive sleep apnea (adult) (pediatric); Z87.891 Personal history of nicotine dependence; Z86.711 Personal history of pulmonary embolism; Z85.828 Personal history of other malignant neoplasm of skin | CPT/HCPCS: 99212 ==

== ENCOUNTER → 2018-08-02 | Outpatient (CLI) | payer MEDICAID | END | disposition home or self-care (01) | LOC: WOUND 09:00 | PROVIDERS: ATTEND Internal Medicine | DX: L98.422 Non-pressure chronic ulcer of back with fat layer exposed (principal); C44.519 Basal cell carcinoma of skin of other part of trunk; T66.XXXD Radiation sickness, unspecified, subsequent encounter; I11.0 Hypertensive heart disease with heart failure; I50.9 Heart failure, unspecified; E66.01 Morbid (severe) obesity due to excess calories; G47.33 Obstructive sleep apnea (adult) (pediatric); Z87.891 Personal history of nicotine dependence; Z86.711 Personal history of pulmonary embolism; Z85.828 Personal history of other malignant neoplasm of skin | CPT/HCPCS: 99212 ==

== ENCOUNTER → 2018-08-04 | Outpatient (CLI) | payer MEDICAID | END | disposition home or self-care (01) | LOC: WOUND 09:35 | PROVIDERS: ATTEND Family Medicine | DX: L98.422 Non-pressure chronic ulcer of back with fat layer exposed (principal); L59.8 Other specified disorders of the skin and subcutaneous tissue related to radiation; C44.519 Basal cell carcinoma of skin of other part of trunk; I11.0 Hypertensive heart disease with heart failure; I50.9 Heart failure, unspecified; E66.01 Morbid (severe) obesity due to excess calories; G47.33 Obstructive sleep apnea (adult) (pediatric); Z68.43 Body mass index [BMI] 50.0-59.9, adult; Z86.711 Personal history of pulmonary embolism; Z85.828 Personal history of other malignant neoplasm of skin | CPT/HCPCS: 97597; 97598 ==

== ENCOUNTER → 2018-08-07 | Outpatient (CLI) | payer MEDICAID | END | disposition home or self-care (01) | LOC: WOUND 13:41 | PROVIDERS: ATTEND Internal Medicine | DX: L98.422 Non-pressure chronic ulcer of back with fat layer exposed (principal); C44.519 Basal cell carcinoma of skin of other part of trunk; T66.XXXD Radiation sickness, unspecified, subsequent encounter; I11.0 Hypertensive heart disease with heart failure; I50.9 Heart failure, unspecified; E66.01 Morbid (severe) obesity due to excess calories; G47.33 Obstructive sleep apnea (adult) (pediatric); Z87.891 Personal history of nicotine dependence; Z86.711 Personal history of pulmonary embolism; Z85.828 Personal history of other malignant neoplasm of skin | CPT/HCPCS: 99213 ==

== ENCOUNTER → 2018-08-09 | Outpatient (CLI) | payer MEDICAID | END | disposition home or self-care (01) | LOC: WOUND 11:00 | PROVIDERS: ATTEND Internal Medicine | DX: L98.422 Non-pressure chronic ulcer of back with fat layer exposed (principal); C44.519 Basal cell carcinoma of skin of other part of trunk; T66.XXXD Radiation sickness, unspecified, subsequent encounter; I11.0 Hypertensive heart disease with heart failure; I50.9 Heart failure, unspecified; E66.01 Morbid (severe) obesity due to excess calories; G47.33 Obstructive sleep apnea (adult) (pediatric); Z87.891 Personal history of nicotine dependence; Z86.711 Personal history of pulmonary embolism; Z85.828 Personal history of other malignant neoplasm of skin | CPT/HCPCS: 99212 ==

== ENCOUNTER → 2018-08-11 | Outpatient (CLI) | payer MEDICAID | END | disposition home or self-care (01) | LOC: WOUND 08:09 | PROVIDERS: ATTEND Family Medicine | DX: L98.422 Non-pressure chronic ulcer of back with fat layer exposed (principal); C44.519 Basal cell carcinoma of skin of other part of trunk; I11.0 Hypertensive heart disease with heart failure; I50.9 Heart failure, unspecified; T66.XXXD Radiation sickness, unspecified, subsequent encounter; E66.01 Morbid (severe) obesity due to excess calories; Z86.711 Personal history of pulmonary embolism; G47.33 Obstructive sleep apnea (adult) (pediatric); Z87.891 Personal history of nicotine dependence; Z85.828 Personal history of other malignant neoplasm of skin; Y84.2 Radiological procedure and radiotherapy as the cause of abnormal reaction of the patient, or of later complication, without mention of misadventure at the time of the procedure | CPT/HCPCS: 97597; 97598 ==

== ENCOUNTER → 2018-08-14 | Outpatient (CLI) | payer MEDICAID | END | disposition home or self-care (01) | LOC: WOUND 11:29 | PROVIDERS: ATTEND Internal Medicine | DX: L98.422 Non-pressure chronic ulcer of back with fat layer exposed (principal); L59.8 Other specified disorders of the skin and subcutaneous tissue related to radiation; C44.519 Basal cell carcinoma of skin of other part of trunk; I11.0 Hypertensive heart disease with heart failure; I50.9 Heart failure, unspecified; E66.01 Morbid (severe) obesity due to excess calories; G47.33 Obstructive sleep apnea (adult) (pediatric); Z87.891 Personal history of nicotine dependence; Z86.711 Personal history of pulmonary embolism; Z85.828 Personal history of other malignant neoplasm of skin; Z85.820 Personal history of malignant melanoma of skin; Y84.2 Radiological procedure and radiotherapy as the cause of abnormal reaction of the patient, or of later complication, without mention of misadventure at the time of the procedure | CPT/HCPCS: 99213 ==

== ENCOUNTER → 2018-08-16 | Outpatient (CLI) | payer MEDICAID | END | disposition home or self-care (01) | LOC: WOUND 08:31 | PROVIDERS: ATTEND Internal Medicine | DX: L98.422 Non-pressure chronic ulcer of back with fat layer exposed (principal); C44.519 Basal cell carcinoma of skin of other part of trunk; L59.8 Other specified disorders of the skin and subcutaneous tissue related to radiation; I10 Essential (primary) hypertension; E66.01 Morbid (severe) obesity due to excess calories; G47.33 Obstructive sleep apnea (adult) (pediatric); Z86.711 Personal history of pulmonary embolism; Z85.828 Personal history of other malignant neoplasm of skin; Z87.891 Personal history of nicotine dependence; Y84.2 Radiological procedure and radiotherapy as the cause of abnormal reaction of the patient, or of later complication, without mention of misadventure at the time of the procedure | CPT/HCPCS: 99212 ==

== ENCOUNTER → 2018-08-18 | Outpatient (CLI) | payer MEDICAID | END | disposition home or self-care (01) | LOC: WOUND 08:24 | PROVIDERS: ATTEND Family Medicine | DX: L98.422 Non-pressure chronic ulcer of back with fat layer exposed (principal); L59.8 Other specified disorders of the skin and subcutaneous tissue related to radiation; C44.519 Basal cell carcinoma of skin of other part of trunk; I11.0 Hypertensive heart disease with heart failure; I50.9 Heart failure, unspecified; E66.01 Morbid (severe) obesity due to excess calories; Z68.43 Body mass index [BMI] 50.0-59.9, adult; Z86.711 Personal history of pulmonary embolism; G47.33 Obstructive sleep apnea (adult) (pediatric); Z85.828 Personal history of other malignant neoplasm of skin; Y84.2 Radiological procedure and radiotherapy as the cause of abnormal reaction of the patient, or of later complication, without mention of misadventure at the time of the procedure | CPT/HCPCS: 97597; 97598 ==

== ENCOUNTER → 2018-08-25 | Outpatient (CLI) | payer MEDICAID | END | disposition home or self-care (01) | LOC: WOUND 09:00 | PROVIDERS: ATTEND Family Medicine | DX: L98.422 Non-pressure chronic ulcer of back with fat layer exposed (principal); L59.8 Other specified disorders of the skin and subcutaneous tissue related to radiation; C44.519 Basal cell carcinoma of skin of other part of trunk; I11.0 Hypertensive heart disease with heart failure; I50.9 Heart failure, unspecified; E66.01 Morbid (severe) obesity due to excess calories; G47.33 Obstructive sleep apnea (adult) (pediatric); Z68.43 Body mass index [BMI] 50.0-59.9, adult; Z86.711 Personal history of pulmonary embolism; Z47.33 Aftercare following explantation of knee joint prosthesis; Z85.828 Personal history of other malignant neoplasm of skin; Y84.2 Radiological procedure and radiotherapy as the cause of abnormal reaction of the patient, or of later complication, without mention of misadventure at the time of the procedure | CPT/HCPCS: 97597; 97598 ==

== ENCOUNTER → 2018-09-01 | Outpatient (CLI) | payer MEDICAID | END | disposition home or self-care (01) | LOC: WOUND 08:15 | PROVIDERS: ATTEND Family Medicine | DX: L98.422 Non-pressure chronic ulcer of back with fat layer exposed (principal); L59.8 Other specified disorders of the skin and subcutaneous tissue related to radiation; C44.519 Basal cell carcinoma of skin of other part of trunk; I11.0 Hypertensive heart disease with heart failure; I50.9 Heart failure, unspecified; E66.01 Morbid (severe) obesity due to excess calories; G47.33 Obstructive sleep apnea (adult) (pediatric); Z68.43 Body mass index [BMI] 50.0-59.9, adult; Z86.711 Personal history of pulmonary embolism; Z47.33 Aftercare following explantation of knee joint prosthesis; Z85.828 Personal history of other malignant neoplasm of skin; Y84.2 Radiological procedure and radiotherapy as the cause of abnormal reaction of the patient, or of later complication, without mention of misadventure at the time of the procedure | CPT/HCPCS: 97597; 97598 ==

== ENCOUNTER 2018-09-08 08:16 | Outpatient (CLI) | payer MEDICAID | END 2018-09-08 23:59 | disposition home or self-care (01) | LOC: WOUND 08:16 | PROVIDERS: ATTEND Family Medicine | DX: L98.422 Non-pressure chronic ulcer of back with fat layer exposed (principal); L59.8 Other specified disorders of the skin and subcutaneous tissue related to radiation; C44.519 Basal cell carcinoma of skin of other part of trunk; I11.0 Hypertensive heart disease with heart failure; I50.9 Heart failure, unspecified; G47.33 Obstructive sleep apnea (adult) (pediatric); E66.01 Morbid (severe) obesity due to excess calories; Z68.43 Body mass index [BMI] 50.0-59.9, adult; Z87.891 Personal history of nicotine dependence; Z86.711 Personal history of pulmonary embolism; Z85.828 Personal history of other malignant neoplasm of skin | CPT/HCPCS: 97597; 97598 ==

== ENCOUNTER 2018-09-15 07:53 | Outpatient (CLI) | payer MEDICAID | END 2018-09-15 23:59 | disposition home or self-care (01) | LOC: WOUND 07:53 | PROVIDERS: ATTEND Family Medicine | DX: L98.422 Non-pressure chronic ulcer of back with fat layer exposed (principal); L59.8 Other specified disorders of the skin and subcutaneous tissue related to radiation; L03.312 Cellulitis of back [any part except buttock and flank]; L02.212 Cutaneous abscess of back [any part, except buttock and flank]; C44.519 Basal cell carcinoma of skin of other part of trunk; I11.0 Hypertensive heart disease with heart failure; I50.9 Heart failure, unspecified; G47.33 Obstructive sleep apnea (adult) (pediatric); E66.01 Morbid (severe) obesity due to excess calories; Z68.43 Body mass index [BMI] 50.0-59.9, adult; Z87.891 Personal history of nicotine dependence; Z86.711 Personal history of pulmonary embolism; Z85.828 Personal history of other malignant neoplasm of skin; Z86.718 Personal history of other venous thrombosis and embolism | CPT/HCPCS: 10060; 97597; 97598 ==

== ENCOUNTER → 2018-09-18 | Outpatient (CLI) | payer MEDICAID | END | disposition home or self-care (01) | LOC: WOUND 10:15 | PROVIDERS: ATTEND Internal Medicine | DX: L03.312 Cellulitis of back [any part except buttock and flank] (principal); L59.8 Other specified disorders of the skin and subcutaneous tissue related to radiation; L02.212 Cutaneous abscess of back [any part, except buttock and flank]; C44.519 Basal cell carcinoma of skin of other part of trunk; L98.422 Non-pressure chronic ulcer of back with fat layer exposed; I11.0 Hypertensive heart disease with heart failure; I50.9 Heart failure, unspecified; G47.33 Obstructive sleep apnea (adult) (pediatric); E66.01 Morbid (severe) obesity due to excess calories; Z68.43 Body mass index [BMI] 50.0-59.9, adult; Z86.711 Personal history of pulmonary embolism; Z85.828 Personal history of other malignant neoplasm of skin; Z85.820 Personal history of malignant melanoma of skin; Z87.891 Personal history of nicotine dependence | CPT/HCPCS: 99214 ==

== ENCOUNTER → 2018-09-20 | Outpatient (CLI) | payer MEDICAID | END | disposition home or self-care (01) | LOC: WOUND 08:25 | PROVIDERS: ATTEND Internal Medicine | DX: L98.422 Non-pressure chronic ulcer of back with fat layer exposed (principal); L59.8 Other specified disorders of the skin and subcutaneous tissue related to radiation; L03.312 Cellulitis of back [any part except buttock and flank]; L02.212 Cutaneous abscess of back [any part, except buttock and flank]; C44.519 Basal cell carcinoma of skin of other part of trunk; I11.0 Hypertensive heart disease with heart failure; I50.9 Heart failure, unspecified; G47.33 Obstructive sleep apnea (adult) (pediatric); E66.01 Morbid (severe) obesity due to excess calories; Z68.43 Body mass index [BMI] 50.0-59.9, adult; Z87.891 Personal history of nicotine dependence; Z86.711 Personal history of pulmonary embolism; Z85.828 Personal history of other malignant neoplasm of skin; Z86.718 Personal history of other venous thrombosis and embolism | CPT/HCPCS: 99213 ==

== ENCOUNTER → 2018-09-22 | Outpatient (CLI) | payer MEDICAID | END | disposition home or self-care (01) | LOC: WOUND 07:59 | PROVIDERS: ATTEND Family Medicine | DX: I87.311 Chronic venous hypertension (idiopathic) with ulcer of right lower extremity (principal); L98.422 Non-pressure chronic ulcer of back with fat layer exposed; L03.312 Cellulitis of back [any part except buttock and flank]; L02.212 Cutaneous abscess of back [any part, except buttock and flank]; C44.519 Basal cell carcinoma of skin of other part of trunk; L59.8 Other specified disorders of the skin and subcutaneous tissue related to radiation; R21 Rash and other nonspecific skin eruption; I11.0 Hypertensive heart disease with heart failure; I50.9 Heart failure, unspecified; G47.33 Obstructive sleep apnea (adult) (pediatric); E66.01 Morbid (severe) obesity due to excess calories; Z68.43 Body mass index [BMI] 50.0-59.9, adult; Z87.891 Personal history of nicotine dependence; Z86.711 Personal history of pulmonary embolism; Z85.820 Personal history of malignant melanoma of skin; Z85.828 Personal history of other malignant neoplasm of skin; Z86.718 Personal history of other venous thrombosis and embolism | CPT/HCPCS: 11042; 97597; 97598 ==

== ENCOUNTER → 2018-09-25 | Outpatient (CLI) | payer MEDICAID | END | disposition home or self-care (01) | LOC: WOUND 08:02 | PROVIDERS: ATTEND Internal Medicine | DX: I87.311 Chronic venous hypertension (idiopathic) with ulcer of right lower extremity (principal); L98.422 Non-pressure chronic ulcer of back with fat layer exposed; L03.312 Cellulitis of back [any part except buttock and flank]; L02.212 Cutaneous abscess of back [any part, except buttock and flank]; C44.519 Basal cell carcinoma of skin of other part of trunk; L59.8 Other specified disorders of the skin and subcutaneous tissue related to radiation; I11.0 Hypertensive heart disease with heart failure; I50.9 Heart failure, unspecified; G47.33 Obstructive sleep apnea (adult) (pediatric); E66.01 Morbid (severe) obesity due to excess calories; Z68.43 Body mass index [BMI] 50.0-59.9, adult; Z86.711 Personal history of pulmonary embolism; Z85.828 Personal history of other malignant neoplasm of skin; Z86.718 Personal history of other venous thrombosis and embolism | CPT/HCPCS: 29581 ==

== ENCOUNTER → 2018-09-27 | Outpatient (CLI) | payer MEDICAID | END | disposition home or self-care (01) | LOC: WOUND 08:02 | PROVIDERS: ATTEND Internal Medicine | DX: I87.311 Chronic venous hypertension (idiopathic) with ulcer of right lower extremity (principal); L98.422 Non-pressure chronic ulcer of back with fat layer exposed; L97.811 Non-pressure chronic ulcer of other part of right lower leg limited to breakdown of skin; L03.312 Cellulitis of back [any part except buttock and flank]; L02.212 Cutaneous abscess of back [any part, except buttock and flank]; C44.519 Basal cell carcinoma of skin of other part of trunk; L59.8 Other specified disorders of the skin and subcutaneous tissue related to radiation; I11.0 Hypertensive heart disease with heart failure; I50.9 Heart failure, unspecified; G47.33 Obstructive sleep apnea (adult) (pediatric); E66.01 Morbid (severe) obesity due to excess calories; Z68.43 Body mass index [BMI] 50.0-59.9, adult; Z87.891 Personal history of nicotine dependence; Z86.711 Personal history of pulmonary embolism; Z85.828 Personal history of other malignant neoplasm of skin; Z86.718 Personal history of other venous thrombosis and embolism | CPT/HCPCS: 99213 ==

== ENCOUNTER → 2018-09-29 | Outpatient (CLI) | payer MEDICAID | END | disposition home or self-care (01) | LOC: WOUND 08:01 | PROVIDERS: ATTEND Family Medicine | DX: I87.311 Chronic venous hypertension (idiopathic) with ulcer of right lower extremity (principal); L98.422 Non-pressure chronic ulcer of back with fat layer exposed; L03.312 Cellulitis of back [any part except buttock and flank]; L02.212 Cutaneous abscess of back [any part, except buttock and flank]; C44.519 Basal cell carcinoma of skin of other part of trunk; L59.8 Other specified disorders of the skin and subcutaneous tissue related to radiation; I11.0 Hypertensive heart disease with heart failure; I50.9 Heart failure, unspecified; G47.33 Obstructive sleep apnea (adult) (pediatric); E66.01 Morbid (severe) obesity due to excess calories; Z68.43 Body mass index [BMI] 50.0-59.9, adult; Z86.711 Personal history of pulmonary embolism; Z87.891 Personal history of nicotine dependence; Z85.820 Personal history of malignant melanoma of skin; Z85.828 Personal history of other malignant neoplasm of skin; Z86.718 Personal history of other venous thrombosis and embolism | CPT/HCPCS: 97597; 97598 ==

== ENCOUNTER → 2018-10-03 | Outpatient (CLI) | payer MEDICAID | END | disposition home or self-care (01) | LOC: WOUND 08:02 | PROVIDERS: ATTEND Nurse Practitioner Family | DX: I87.311 Chronic venous hypertension (idiopathic) with ulcer of right lower extremity (principal); L98.422 Non-pressure chronic ulcer of back with fat layer exposed; L97.811 Non-pressure chronic ulcer of other part of right lower leg limited to breakdown of skin; L59.8 Other specified disorders of the skin and subcutaneous tissue related to radiation; L03.312 Cellulitis of back [any part except buttock and flank]; L02.212 Cutaneous abscess of back [any part, except buttock and flank]; C44.519 Basal cell carcinoma of skin of other part of trunk; I11.0 Hypertensive heart disease with heart failure; I50.9 Heart failure, unspecified; G47.33 Obstructive sleep apnea (adult) (pediatric); E66.01 Morbid (severe) obesity due to excess calories; Z86.711 Personal history of pulmonary embolism; Z85.828 Personal history of other malignant neoplasm of skin; Z68.43 Body mass index [BMI] 50.0-59.9, adult; Z87.891 Personal history of nicotine dependence; Z86.718 Personal history of other venous thrombosis and embolism | CPT/HCPCS: 99213 ==

== ENCOUNTER → 2018-10-10 | Outpatient (CLI) | payer MEDICAID | END | disposition home or self-care (01) | LOC: WOUND 08:04 | PROVIDERS: ATTEND Internal Medicine Cardiovascular Disease | DX: I87.311 Chronic venous hypertension (idiopathic) with ulcer of right lower extremity (principal); L98.422 Non-pressure chronic ulcer of back with fat layer exposed; L59.8 Other specified disorders of the skin and subcutaneous tissue related to radiation; L03.312 Cellulitis of back [any part except buttock and flank]; C44.519 Basal cell carcinoma of skin of other part of trunk; I11.0 Hypertensive heart disease with heart failure; I50.9 Heart failure, unspecified; G47.33 Obstructive sleep apnea (adult) (pediatric); E66.01 Morbid (severe) obesity due to excess calories; Z68.43 Body mass index [BMI] 50.0-59.9, adult; Z86.711 Personal history of pulmonary embolism; Z87.891 Personal history of nicotine dependence; Z85.828 Personal history of other malignant neoplasm of skin | CPT/HCPCS: 99214 ==

== ENCOUNTER → 2018-10-13 | Outpatient (CLI) | payer MEDICAID | END | disposition home or self-care (01) | LOC: WOUND 08:10 | PROVIDERS: ATTEND Family Medicine | DX: L59.8 Other specified disorders of the skin and subcutaneous tissue related to radiation (principal); L03.312 Cellulitis of back [any part except buttock and flank]; L02.212 Cutaneous abscess of back [any part, except buttock and flank]; C44.519 Basal cell carcinoma of skin of other part of trunk; I11.0 Hypertensive heart disease with heart failure; I50.9 Heart failure, unspecified; G47.33 Obstructive sleep apnea (adult) (pediatric); E66.01 Morbid (severe) obesity due to excess calories; Z68.43 Body mass index [BMI] 50.0-59.9, adult; Z86.711 Personal history of pulmonary embolism; Z87.891 Personal history of nicotine dependence; Z85.828 Personal history of other malignant neoplasm of skin; Z86.718 Personal history of other venous thrombosis and embolism | CPT/HCPCS: 97597; 97598 ==

== ENCOUNTER → 2018-10-16 | Outpatient (CLI) | payer MEDICAID | END | disposition home or self-care (01) | LOC: WOUND 07:55 | PROVIDERS: ATTEND Internal Medicine | DX: L59.8 Other specified disorders of the skin and subcutaneous tissue related to radiation (principal); I87.311 Chronic venous hypertension (idiopathic) with ulcer of right lower extremity; L98.422 Non-pressure chronic ulcer of back with fat layer exposed; L03.312 Cellulitis of back [any part except buttock and flank]; L02.212 Cutaneous abscess of back [any part, except buttock and flank]; C44.519 Basal cell carcinoma of skin of other part of trunk; I11.0 Hypertensive heart disease with heart failure; I50.9 Heart failure, unspecified; G47.33 Obstructive sleep apnea (adult) (pediatric); E66.01 Morbid (severe) obesity due to excess calories; Z68.44 Body mass index [BMI] 60.0-69.9, adult; Z87.891 Personal history of nicotine dependence; Z85.820 Personal history of malignant melanoma of skin; Y84.2 Radiological procedure and radiotherapy as the cause of abnormal reaction of the patient, or of later complication, without mention of misadventure at the time of the procedure | CPT/HCPCS: 99213 ==

== ENCOUNTER → 2018-10-20 | Outpatient (CLI) | payer MEDICAID | END | disposition home or self-care (01) | LOC: WOUND 08:39 | PROVIDERS: ATTEND Family Medicine | DX: L59.8 Other specified disorders of the skin and subcutaneous tissue related to radiation (principal); L98.422 Non-pressure chronic ulcer of back with fat layer exposed; L03.312 Cellulitis of back [any part except buttock and flank]; L02.212 Cutaneous abscess of back [any part, except buttock and flank]; C44.519 Basal cell carcinoma of skin of other part of trunk; I11.0 Hypertensive heart disease with heart failure; I50.9 Heart failure, unspecified; E66.01 Morbid (severe) obesity due to excess calories; G47.33 Obstructive sleep apnea (adult) (pediatric); Z87.891 Personal history of nicotine dependence; Z86.711 Personal history of pulmonary embolism; Z85.828 Personal history of other malignant neoplasm of skin; Z68.43 Body mass index [BMI] 50.0-59.9, adult; Z86.718 Personal history of other venous thrombosis and embolism; Y84.2 Radiological procedure and radiotherapy as the cause of abnormal reaction of the patient, or of later complication, without mention of misadventure at the time of the procedure | CPT/HCPCS: 97597 ==

== ENCOUNTER → 2018-10-23 | Outpatient (CLI) | payer MEDICAID | END | disposition home or self-care (01) | LOC: WOUND 08:15 | PROVIDERS: ATTEND Internal Medicine Cardiovascular Disease | DX: L59.8 Other specified disorders of the skin and subcutaneous tissue related to radiation (principal); L03.312 Cellulitis of back [any part except buttock and flank]; L02.212 Cutaneous abscess of back [any part, except buttock and flank]; C44.519 Basal cell carcinoma of skin of other part of trunk; I11.0 Hypertensive heart disease with heart failure; I50.9 Heart failure, unspecified; G47.33 Obstructive sleep apnea (adult) (pediatric); E66.01 Morbid (severe) obesity due to excess calories; Z68.44 Body mass index [BMI] 60.0-69.9, adult; Z86.711 Personal history of pulmonary embolism; Z87.891 Personal history of nicotine dependence; Z85.828 Personal history of other malignant neoplasm of skin; Z86.718 Personal history of other venous thrombosis and embolism; Y84.2 Radiological procedure and radiotherapy as the cause of abnormal reaction of the patient, or of later complication, without mention of misadventure at the time of the procedure | CPT/HCPCS: 99213 ==

== ENCOUNTER → 2018-10-27 | Outpatient (CLI) | payer MEDICAID | END | disposition home or self-care (01) | LOC: WOUND 08:23 | PROVIDERS: ATTEND Internal Medicine Cardiovascular Disease | DX: L59.8 Other specified disorders of the skin and subcutaneous tissue related to radiation (principal); L98.422 Non-pressure chronic ulcer of back with fat layer exposed; L03.312 Cellulitis of back [any part except buttock and flank]; L02.212 Cutaneous abscess of back [any part, except buttock and flank]; C44.519 Basal cell carcinoma of skin of other part of trunk; I11.0 Hypertensive heart disease with heart failure; I50.9 Heart failure, unspecified; E66.01 Morbid (severe) obesity due to excess calories; G47.33 Obstructive sleep apnea (adult) (pediatric); Z87.891 Personal history of nicotine dependence; Z86.711 Personal history of pulmonary embolism; Z85.828 Personal history of other malignant neoplasm of skin; Z68.43 Body mass index [BMI] 50.0-59.9, adult; Z86.718 Personal history of other venous thrombosis and embolism; Y84.2 Radiological procedure and radiotherapy as the cause of abnormal reaction of the patient, or of later complication, without mention of misadventure at the time of the procedure | CPT/HCPCS: 99213 ==

== ENCOUNTER → 2018-10-30 | Outpatient (CLI) | payer MEDICAID | END | disposition home or self-care (01) | LOC: WOUND 07:56 | PROVIDERS: ATTEND Internal Medicine | DX: L59.8 Other specified disorders of the skin and subcutaneous tissue related to radiation (principal); L98.422 Non-pressure chronic ulcer of back with fat layer exposed; L03.312 Cellulitis of back [any part except buttock and flank]; C44.519 Basal cell carcinoma of skin of other part of trunk; I11.0 Hypertensive heart disease with heart failure; I50.9 Heart failure, unspecified; G47.33 Obstructive sleep apnea (adult) (pediatric); E66.01 Morbid (severe) obesity due to excess calories; Z68.43 Body mass index [BMI] 50.0-59.9, adult; Z86.711 Personal history of pulmonary embolism; Z87.891 Personal history of nicotine dependence; Z85.828 Personal history of other malignant neoplasm of skin; Y84.2 Radiological procedure and radiotherapy as the cause of abnormal reaction of the patient, or of later complication, without mention of misadventure at the time of the procedure | CPT/HCPCS: 99212 ==

== ENCOUNTER → 2018-11-03 | Outpatient (CLI) | payer MEDICAID | END | disposition home or self-care (01) | LOC: WOUND 08:00 | PROVIDERS: ATTEND Family Medicine | DX: L98.422 Non-pressure chronic ulcer of back with fat layer exposed (principal); L59.8 Other specified disorders of the skin and subcutaneous tissue related to radiation; I10 Essential (primary) hypertension; E66.9 Obesity, unspecified; G47.33 Obstructive sleep apnea (adult) (pediatric); Z68.43 Body mass index [BMI] 50.0-59.9, adult | CPT/HCPCS: 97597 ==

== ENCOUNTER → 2018-11-06 | Outpatient (CLI) | payer MEDICAID | END | disposition home or self-care (01) | LOC: WOUND 11:00 | PROVIDERS: ATTEND Internal Medicine | DX: L59.8 Other specified disorders of the skin and subcutaneous tissue related to radiation (principal); L98.422 Non-pressure chronic ulcer of back with fat layer exposed; L03.312 Cellulitis of back [any part except buttock and flank]; L02.212 Cutaneous abscess of back [any part, except buttock and flank]; C44.519 Basal cell carcinoma of skin of other part of trunk; I11.0 Hypertensive heart disease with heart failure; I50.9 Heart failure, unspecified; E66.01 Morbid (severe) obesity due to excess calories; G47.33 Obstructive sleep apnea (adult) (pediatric); Z87.891 Personal history of nicotine dependence; Z86.711 Personal history of pulmonary embolism; Z85.828 Personal history of other malignant neoplasm of skin; Z68.43 Body mass index [BMI] 50.0-59.9, adult; Z86.718 Personal history of other venous thrombosis and embolism; Y84.2 Radiological procedure and radiotherapy as the cause of abnormal reaction of the patient, or of later complication, without mention of misadventure at the time of the procedure | CPT/HCPCS: 99212 ==

== ENCOUNTER 2018-11-10 08:07 | Outpatient (CLI) | payer MEDICAID | END 2018-11-10 23:59 | disposition home or self-care (01) | LOC: WOUND 08:07 | PROVIDERS: ATTEND Family Medicine | DX: L59.8 Other specified disorders of the skin and subcutaneous tissue related to radiation (principal); L98.422 Non-pressure chronic ulcer of back with fat layer exposed; C44.519 Basal cell carcinoma of skin of other part of trunk; I11.0 Hypertensive heart disease with heart failure; I50.9 Heart failure, unspecified; G47.33 Obstructive sleep apnea (adult) (pediatric); E66.01 Morbid (severe) obesity due to excess calories; Z68.43 Body mass index [BMI] 50.0-59.9, adult; Z86.718 Personal history of other venous thrombosis and embolism; Z86.711 Personal history of pulmonary embolism; Y84.2 Radiological procedure and radiotherapy as the cause of abnormal reaction of the patient, or of later complication, without mention of misadventure at the time of the procedure; Z85.820 Personal history of malignant melanoma of skin | CPT/HCPCS: 97597; 97598 ==

== ENCOUNTER → 2018-11-13 | Outpatient (CLI) | payer MEDICAID | END | disposition home or self-care (01) | LOC: WOUND 07:44 | PROVIDERS: ATTEND Internal Medicine | DX: L59.8 Other specified disorders of the skin and subcutaneous tissue related to radiation (principal); L98.422 Non-pressure chronic ulcer of back with fat layer exposed; I11.0 Hypertensive heart disease with heart failure; C44.519 Basal cell carcinoma of skin of other part of trunk; I50.9 Heart failure, unspecified; G47.33 Obstructive sleep apnea (adult) (pediatric); E66.01 Morbid (severe) obesity due to excess calories; Z68.43 Body mass index [BMI] 50.0-59.9, adult; Z86.718 Personal history of other venous thrombosis and embolism; Z86.711 Personal history of pulmonary embolism; Z85.820 Personal history of malignant melanoma of skin; Y84.2 Radiological procedure and radiotherapy as the cause of abnormal reaction of the patient, or of later complication, without mention of misadventure at the time of the procedure | CPT/HCPCS: 99212 ==

== ENCOUNTER → 2018-11-20 | Outpatient (CLI) | payer MEDICAID | END | disposition home or self-care (01) | LOC: WOUND 07:52 | PROVIDERS: ATTEND Internal Medicine | DX: L59.8 Other specified disorders of the skin and subcutaneous tissue related to radiation (principal); L98.422 Non-pressure chronic ulcer of back with fat layer exposed; C44.519 Basal cell carcinoma of skin of other part of trunk; I11.0 Hypertensive heart disease with heart failure; I50.9 Heart failure, unspecified; G47.33 Obstructive sleep apnea (adult) (pediatric); E66.01 Morbid (severe) obesity due to excess calories; Z68.43 Body mass index [BMI] 50.0-59.9, adult; Z86.718 Personal history of other venous thrombosis and embolism; Z86.711 Personal history of pulmonary embolism; Z85.820 Personal history of malignant melanoma of skin; Y84.2 Radiological procedure and radiotherapy as the cause of abnormal reaction of the patient, or of later complication, without mention of misadventure at the time of the procedure | CPT/HCPCS: 99213 ==

== ENCOUNTER → 2018-11-24 | Outpatient (CLI) | payer MEDICAID | END | disposition home or self-care (01) | LOC: WOUND 08:01 | PROVIDERS: ATTEND Family Medicine | DX: L59.8 Other specified disorders of the skin and subcutaneous tissue related to radiation (principal); L98.422 Non-pressure chronic ulcer of back with fat layer exposed; C44.519 Basal cell carcinoma of skin of other part of trunk; I11.0 Hypertensive heart disease with heart failure; I50.9 Heart failure, unspecified; G47.33 Obstructive sleep apnea (adult) (pediatric); E66.01 Morbid (severe) obesity due to excess calories; Z68.43 Body mass index [BMI] 50.0-59.9, adult; Z86.718 Personal history of other venous thrombosis and embolism; Z86.711 Personal history of pulmonary embolism; Z85.820 Personal history of malignant melanoma of skin; Y84.2 Radiological procedure and radiotherapy as the cause of abnormal reaction of the patient, or of later complication, without mention of misadventure at the time of the procedure | CPT/HCPCS: 97597 ==

== ENCOUNTER → 2018-11-27 | Outpatient (CLI) | payer MEDICAID | END | disposition home or self-care (01) | LOC: WOUND 10:24 | PROVIDERS: ATTEND Internal Medicine | DX: L59.8 Other specified disorders of the skin and subcutaneous tissue related to radiation (principal); L98.422 Non-pressure chronic ulcer of back with fat layer exposed; C44.519 Basal cell carcinoma of skin of other part of trunk; I11.0 Hypertensive heart disease with heart failure; I50.9 Heart failure, unspecified; G47.33 Obstructive sleep apnea (adult) (pediatric); E66.01 Morbid (severe) obesity due to excess calories; Z68.43 Body mass index [BMI] 50.0-59.9, adult; Z86.718 Personal history of other venous thrombosis and embolism; Z86.711 Personal history of pulmonary embolism; Z85.820 Personal history of malignant melanoma of skin; Y84.2 Radiological procedure and radiotherapy as the cause of abnormal reaction of the patient, or of later complication, without mention of misadventure at the time of the procedure | CPT/HCPCS: 99214 ==

== ENCOUNTER 2018-12-01 07:52 | Outpatient (CLI) | payer MEDICAID | END 2018-12-01 23:59 | disposition home or self-care (01) | LOC: WOUND 07:52 | PROVIDERS: ATTEND Family Medicine | DX: L59.8 Other specified disorders of the skin and subcutaneous tissue related to radiation (principal); L98.422 Non-pressure chronic ulcer of back with fat layer exposed; C44.519 Basal cell carcinoma of skin of other part of trunk; I11.0 Hypertensive heart disease with heart failure; I50.9 Heart failure, unspecified; G47.33 Obstructive sleep apnea (adult) (pediatric); E66.01 Morbid (severe) obesity due to excess calories; Z68.43 Body mass index [BMI] 50.0-59.9, adult; Z86.718 Personal history of other venous thrombosis and embolism; Z86.711 Personal history of pulmonary embolism; Z85.820 Personal history of malignant melanoma of skin; Y84.2 Radiological procedure and radiotherapy as the cause of abnormal reaction of the patient, or of later complication, without mention of misadventure at the time of the procedure | CPT/HCPCS: 97597 ==

== ENCOUNTER 2018-12-04 11:30 | Outpatient (CLI) | payer MEDICAID | END 2018-12-04 23:59 | disposition home or self-care (01) | LOC: WOUND 11:30 | PROVIDERS: ATTEND Internal Medicine | DX: L59.8 Other specified disorders of the skin and subcutaneous tissue related to radiation (principal); L98.422 Non-pressure chronic ulcer of back with fat layer exposed; C44.519 Basal cell carcinoma of skin of other part of trunk; I11.0 Hypertensive heart disease with heart failure; I50.9 Heart failure, unspecified; G47.33 Obstructive sleep apnea (adult) (pediatric); E66.01 Morbid (severe) obesity due to excess calories; Z68.43 Body mass index [BMI] 50.0-59.9, adult; Z86.718 Personal history of other venous thrombosis and embolism; Z86.711 Personal history of pulmonary embolism; Z85.820 Personal history of malignant melanoma of skin; Y84.2 Radiological procedure and radiotherapy as the cause of abnormal reaction of the patient, or of later complication, without mention of misadventure at the time of the procedure | CPT/HCPCS: 99214 ==

== ENCOUNTER 2018-12-08 07:50 | Outpatient (CLI) | payer MEDICAID | END 2018-12-08 23:59 | disposition home or self-care (01) | LOC: WOUND 07:50 | PROVIDERS: ATTEND Family Medicine | DX: L59.8 Other specified disorders of the skin and subcutaneous tissue related to radiation (principal); L98.422 Non-pressure chronic ulcer of back with fat layer exposed; C44.519 Basal cell carcinoma of skin of other part of trunk; I11.0 Hypertensive heart disease with heart failure; I50.9 Heart failure, unspecified; G47.33 Obstructive sleep apnea (adult) (pediatric); Z68.43 Body mass index [BMI] 50.0-59.9, adult; E66.01 Morbid (severe) obesity due to excess calories; Z86.718 Personal history of other venous thrombosis and embolism; Z86.711 Personal history of pulmonary embolism; Z85.820 Personal history of malignant melanoma of skin; Y84.2 Radiological procedure and radiotherapy as the cause of abnormal reaction of the patient, or of later complication, without mention of misadventure at the time of the procedure | CPT/HCPCS: 97597; 97598 ==

== ENCOUNTER 2018-12-11 07:45 | Outpatient (CLI) | payer MEDICAID | END 2018-12-11 23:59 | disposition home or self-care (01) | LOC: WOUND 07:45 | PROVIDERS: ATTEND Internal Medicine | DX: L59.8 Other specified disorders of the skin and subcutaneous tissue related to radiation (principal); L98.422 Non-pressure chronic ulcer of back with fat layer exposed; C44.519 Basal cell carcinoma of skin of other part of trunk; I11.0 Hypertensive heart disease with heart failure; I50.9 Heart failure, unspecified; G47.33 Obstructive sleep apnea (adult) (pediatric); E66.01 Morbid (severe) obesity due to excess calories; Z68.43 Body mass index [BMI] 50.0-59.9, adult; Z86.718 Personal history of other venous thrombosis and embolism; Z86.711 Personal history of pulmonary embolism; Z85.820 Personal history of malignant melanoma of skin; Y84.2 Radiological procedure and radiotherapy as the cause of abnormal reaction of the patient, or of later complication, without mention of misadventure at the time of the procedure | CPT/HCPCS: 99213 ==

== ENCOUNTER 2018-12-15 07:43 | Outpatient (CLI) | payer MEDICAID | END 2018-12-15 23:59 | disposition home or self-care (01) | LOC: WOUND 07:43 | PROVIDERS: ATTEND Family Medicine | DX: L59.8 Other specified disorders of the skin and subcutaneous tissue related to radiation (principal); L98.422 Non-pressure chronic ulcer of back with fat layer exposed; S80.812D Abrasion, left lower leg, subsequent encounter; C44.519 Basal cell carcinoma of skin of other part of trunk; I11.0 Hypertensive heart disease with heart failure; I50.9 Heart failure, unspecified; G47.33 Obstructive sleep apnea (adult) (pediatric); Z68.43 Body mass index [BMI] 50.0-59.9, adult; E66.01 Morbid (severe) obesity due to excess calories; Z86.718 Personal history of other venous thrombosis and embolism; Z86.711 Personal history of pulmonary embolism; Z85.820 Personal history of malignant melanoma of skin; X58.XXXD Exposure to other specified factors, subsequent encounter; Y84.2 Radiological procedure and radiotherapy as the cause of abnormal reaction of the patient, or of later complication, without mention of misadventure at the time of the procedure | CPT/HCPCS: 97597 ==

== ENCOUNTER 2018-12-18 08:01 | Outpatient (CLI) | payer MEDICAID | END 2018-12-18 23:59 | disposition home or self-care (01) | LOC: WOUND 08:01 | PROVIDERS: ATTEND Internal Medicine | DX: L59.8 Other specified disorders of the skin and subcutaneous tissue related to radiation (principal); L98.422 Non-pressure chronic ulcer of back with fat layer exposed; S80.812D Abrasion, left lower leg, subsequent encounter; C44.519 Basal cell carcinoma of skin of other part of trunk; I11.0 Hypertensive heart disease with heart failure; I50.9 Heart failure, unspecified; G47.33 Obstructive sleep apnea (adult) (pediatric); Z68.43 Body mass index [BMI] 50.0-59.9, adult; E66.01 Morbid (severe) obesity due to excess calories; Z86.718 Personal history of other venous thrombosis and embolism; Z86.711 Personal history of pulmonary embolism; Z85.820 Personal history of malignant melanoma of skin; X58.XXXD Exposure to other specified factors, subsequent encounter; Y84.2 Radiological procedure and radiotherapy as the cause of abnormal reaction of the patient, or of later complication, without mention of misadventure at the time of the procedure | CPT/HCPCS: 99213 ==

== ENCOUNTER 2018-12-22 07:51 | Outpatient (CLI) | payer MEDICAID | END 2018-12-22 23:59 | disposition home or self-care (01) | LOC: WOUND 07:51 | PROVIDERS: ATTEND Family Medicine | DX: L59.8 Other specified disorders of the skin and subcutaneous tissue related to radiation (principal); L98.422 Non-pressure chronic ulcer of back with fat layer exposed; S80.812D Abrasion, left lower leg, subsequent encounter; C44.519 Basal cell carcinoma of skin of other part of trunk; I11.0 Hypertensive heart disease with heart failure; I50.9 Heart failure, unspecified; G47.33 Obstructive sleep apnea (adult) (pediatric); Z68.43 Body mass index [BMI] 50.0-59.9, adult; E66.01 Morbid (severe) obesity due to excess calories; Z86.718 Personal history of other venous thrombosis and embolism; Z86.711 Personal history of pulmonary embolism; Z85.820 Personal history of malignant melanoma of skin; X58.XXXD Exposure to other specified factors, subsequent encounter; Y83.4 Other reconstructive surgery as the cause of abnormal reaction of the patient, or of later complication, without mention of misadventure at the time of the procedure | CPT/HCPCS: 97597 ==

== ENCOUNTER 2018-12-25 08:10 | Outpatient (CLI) | payer MEDICAID | END 2018-12-25 23:59 | disposition home or self-care (01) | LOC: WOUND 08:10 | PROVIDERS: ATTEND Internal Medicine | DX: L59.8 Other specified disorders of the skin and subcutaneous tissue related to radiation (principal); L98.422 Non-pressure chronic ulcer of back with fat layer exposed; S80.812D Abrasion, left lower leg, subsequent encounter; C44.519 Basal cell carcinoma of skin of other part of trunk; I11.0 Hypertensive heart disease with heart failure; I50.9 Heart failure, unspecified; G47.33 Obstructive sleep apnea (adult) (pediatric); Z68.43 Body mass index [BMI] 50.0-59.9, adult; E66.01 Morbid (severe) obesity due to excess calories; Z86.718 Personal history of other venous thrombosis and embolism; Z86.711 Personal history of pulmonary embolism; Z85.820 Personal history of malignant melanoma of skin; X58.XXXD Exposure to other specified factors, subsequent encounter; Y83.4 Other reconstructive surgery as the cause of abnormal reaction of the patient, or of later complication, without mention of misadventure at the time of the procedure | CPT/HCPCS: 99213 ==

== ENCOUNTER 2018-12-29 07:47 | Outpatient (CLI) | payer MEDICAID | END 2018-12-29 23:59 | disposition home or self-care (01) | LOC: WOUND 07:47 | PROVIDERS: ATTEND Family Medicine | DX: L59.8 Other specified disorders of the skin and subcutaneous tissue related to radiation (principal); L98.422 Non-pressure chronic ulcer of back with fat layer exposed; S80.812D Abrasion, left lower leg, subsequent encounter; C44.519 Basal cell carcinoma of skin of other part of trunk; I11.0 Hypertensive heart disease with heart failure; I50.9 Heart failure, unspecified; G47.33 Obstructive sleep apnea (adult) (pediatric); Z68.43 Body mass index [BMI] 50.0-59.9, adult; E66.01 Morbid (severe) obesity due to excess calories; Z86.718 Personal history of other venous thrombosis and embolism; Z86.711 Personal history of pulmonary embolism; Z85.820 Personal history of malignant melanoma of skin; X58.XXXD Exposure to other specified factors, subsequent encounter; Y83.4 Other reconstructive surgery as the cause of abnormal reaction of the patient, or of later complication, without mention of misadventure at the time of the procedure | CPT/HCPCS: 97597 ==

== ENCOUNTER 2019-01-01 07:49 | Outpatient (CLI) | payer MEDICAID | END 2019-01-01 23:59 | disposition home or self-care (01) | LOC: WOUND 07:49 | PROVIDERS: ATTEND Internal Medicine | DX: L59.8 Other specified disorders of the skin and subcutaneous tissue related to radiation (principal); L98.422 Non-pressure chronic ulcer of back with fat layer exposed; S81.802D Unspecified open wound, left lower leg, subsequent encounter; C44.519 Basal cell carcinoma of skin of other part of trunk; I11.0 Hypertensive heart disease with heart failure; I50.9 Heart failure, unspecified; G47.33 Obstructive sleep apnea (adult) (pediatric); Z68.43 Body mass index [BMI] 50.0-59.9, adult; Z86.718 Personal history of other venous thrombosis and embolism; Z86.711 Personal history of pulmonary embolism; Z85.820 Personal history of malignant melanoma of skin; X58.XXXD Exposure to other specified factors, subsequent encounter; Y83.4 Other reconstructive surgery as the cause of abnormal reaction of the patient, or of later complication, without mention of misadventure at the time of the procedure | CPT/HCPCS: 99212 ==

== ENCOUNTER 2019-01-22 08:03 | Outpatient (CLI) | payer MEDICAID | END 2019-01-22 23:59 | disposition home or self-care (01) | LOC: WOUND 08:03 | PROVIDERS: ATTEND Internal Medicine | DX: S80.812D Abrasion, left lower leg, subsequent encounter (principal); L59.8 Other specified disorders of the skin and subcutaneous tissue related to radiation; L98.422 Non-pressure chronic ulcer of back with fat layer exposed; C44.519 Basal cell carcinoma of skin of other part of trunk; I11.0 Hypertensive heart disease with heart failure; I50.9 Heart failure, unspecified; G47.33 Obstructive sleep apnea (adult) (pediatric); Z68.43 Body mass index [BMI] 50.0-59.9, adult; E66.01 Morbid (severe) obesity due to excess calories; Z86.718 Personal history of other venous thrombosis and embolism; Z86.711 Personal history of pulmonary embolism; Z85.820 Personal history of malignant melanoma of skin; X58.XXXD Exposure to other specified factors, subsequent encounter; Y84.2 Radiological procedure and radiotherapy as the cause of abnormal reaction of the patient, or of later complication, without mention of misadventure at the time of the procedure | CPT/HCPCS: 29581 ==

== ENCOUNTER 2019-03-05 07:54 | Outpatient (CLI) | payer MEDICAID | END 2019-03-05 23:59 | disposition home or self-care (01) | LOC: WOUND 07:54 | PROVIDERS: ATTEND Internal Medicine | DX: L59.8 Other specified disorders of the skin and subcutaneous tissue related to radiation (principal); I87.311 Chronic venous hypertension (idiopathic) with ulcer of right lower extremity; L98.422 Non-pressure chronic ulcer of back with fat layer exposed; L97.811 Non-pressure chronic ulcer of other part of right lower leg limited to breakdown of skin; C44.519 Basal cell carcinoma of skin of other part of trunk; S80.812D Abrasion, left lower leg, subsequent encounter; I11.0 Hypertensive heart disease with heart failure; I50.9 Heart failure, unspecified; G47.33 Obstructive sleep apnea (adult) (pediatric); E66.01 Morbid (severe) obesity due to excess calories; Z86.718 Personal history of other venous thrombosis and embolism; Z86.711 Personal history of pulmonary embolism; Z85.820 Personal history of malignant melanoma of skin; X58.XXXD Exposure to other specified factors, subsequent encounter; Y83.4 Other reconstructive surgery as the cause of abnormal reaction of the patient, or of later complication, without mention of misadventure at the time of the procedure | CPT/HCPCS: 99213 ==

== ENCOUNTER → 2019-03-09 | Outpatient (CLI) | payer MEDICAID | END | disposition home or self-care (01) | LOC: WOUND 07:56 | PROVIDERS: ATTEND Family Medicine | DX: L59.8 Other specified disorders of the skin and subcutaneous tissue related to radiation (principal); I87.311 Chronic venous hypertension (idiopathic) with ulcer of right lower extremity; L98.422 Non-pressure chronic ulcer of back with fat layer exposed; L97.811 Non-pressure chronic ulcer of other part of right lower leg limited to breakdown of skin; C44.519 Basal cell carcinoma of skin of other part of trunk; S80.812D Abrasion, left lower leg, subsequent encounter; I11.0 Hypertensive heart disease with heart failure; I50.9 Heart failure, unspecified; G47.33 Obstructive sleep apnea (adult) (pediatric); E66.01 Morbid (severe) obesity due to excess calories; Z68.43 Body mass index [BMI] 50.0-59.9, adult; Z86.718 Personal history of other venous thrombosis and embolism; Z86.711 Personal history of pulmonary embolism; Z85.820 Personal history of malignant melanoma of skin; X58.XXXD Exposure to other specified factors, subsequent encounter; Y83.4 Other reconstructive surgery as the cause of abnormal reaction of the patient, or of later complication, without mention of misadventure at the time of the procedure | CPT/HCPCS: 97597 ==

== ENCOUNTER → 2019-03-16 | Outpatient (CLI) | payer MEDICAID | END | disposition home or self-care (01) | LOC: WOUND 07:50 | PROVIDERS: ATTEND Internal Medicine Cardiovascular Disease | DX: L59.8 Other specified disorders of the skin and subcutaneous tissue related to radiation (principal); I87.311 Chronic venous hypertension (idiopathic) with ulcer of right lower extremity; L98.422 Non-pressure chronic ulcer of back with fat layer exposed; L97.811 Non-pressure chronic ulcer of other part of right lower leg limited to breakdown of skin; C44.519 Basal cell carcinoma of skin of other part of trunk; S80.812D Abrasion, left lower leg, subsequent encounter; I11.0 Hypertensive heart disease with heart failure; I50.9 Heart failure, unspecified; G47.33 Obstructive sleep apnea (adult) (pediatric); E66.01 Morbid (severe) obesity due to excess calories; Z68.43 Body mass index [BMI] 50.0-59.9, adult; Z86.718 Personal history of other venous thrombosis and embolism; Z86.711 Personal history of pulmonary embolism; Z85.820 Personal history of malignant melanoma of skin; X58.XXXD Exposure to other specified factors, subsequent encounter; Y83.4 Other reconstructive surgery as the cause of abnormal reaction of the patient, or of later complication, without mention of misadventure at the time of the procedure | CPT/HCPCS: 99213 ==

== ENCOUNTER → 2019-03-19 | Outpatient (CLI) | payer MEDICAID | END | disposition home or self-care (01) | LOC: WOUND 07:49 | PROVIDERS: ATTEND Internal Medicine | DX: L59.8 Other specified disorders of the skin and subcutaneous tissue related to radiation (principal); I87.311 Chronic venous hypertension (idiopathic) with ulcer of right lower extremity; L98.422 Non-pressure chronic ulcer of back with fat layer exposed; L97.811 Non-pressure chronic ulcer of other part of right lower leg limited to breakdown of skin; C44.519 Basal cell carcinoma of skin of other part of trunk; S80.812D Abrasion, left lower leg, subsequent encounter; I11.0 Hypertensive heart disease with heart failure; I50.9 Heart failure, unspecified; G47.33 Obstructive sleep apnea (adult) (pediatric); E66.01 Morbid (severe) obesity due to excess calories; Z68.43 Body mass index [BMI] 50.0-59.9, adult; Z86.718 Personal history of other venous thrombosis and embolism; Z86.711 Personal history of pulmonary embolism; Z85.820 Personal history of malignant melanoma of skin; X58.XXXD Exposure to other specified factors, subsequent encounter; Y83.4 Other reconstructive surgery as the cause of abnormal reaction of the patient, or of later complication, without mention of misadventure at the time of the procedure | CPT/HCPCS: 99213 ==

== ENCOUNTER → 2019-03-30 | Outpatient (CLI) | payer MEDICAID | END | disposition home or self-care (01) | LOC: WOUND 08:00 | PROVIDERS: ATTEND Family Medicine | DX: I87.311 Chronic venous hypertension (idiopathic) with ulcer of right lower extremity (principal); L97.811 Non-pressure chronic ulcer of other part of right lower leg limited to breakdown of skin; L98.422 Non-pressure chronic ulcer of back with fat layer exposed; L59.8 Other specified disorders of the skin and subcutaneous tissue related to radiation; C44.519 Basal cell carcinoma of skin of other part of trunk; I11.0 Hypertensive heart disease with heart failure; I50.9 Heart failure, unspecified; G47.33 Obstructive sleep apnea (adult) (pediatric); E66.01 Morbid (severe) obesity due to excess calories; Z68.43 Body mass index [BMI] 50.0-59.9, adult; Z86.718 Personal history of other venous thrombosis and embolism; Z86.711 Personal history of pulmonary embolism; Z86.14 Personal history of Methicillin resistant Staphylococcus aureus infection; Z85.820 Personal history of malignant melanoma of skin; Y83.4 Other reconstructive surgery as the cause of abnormal reaction of the patient, or of later complication, without mention of misadventure at the time of the procedure | CPT/HCPCS: 99214 ==

== ENCOUNTER 2019-04-02 07:51 | Outpatient (CLI) | payer MEDICAID | END 2019-04-02 23:59 | disposition home or self-care (01) | LOC: WOUND 07:51 | PROVIDERS: ATTEND Internal Medicine | DX: I87.311 Chronic venous hypertension (idiopathic) with ulcer of right lower extremity (principal); L97.811 Non-pressure chronic ulcer of other part of right lower leg limited to breakdown of skin; L98.422 Non-pressure chronic ulcer of back with fat layer exposed; L59.8 Other specified disorders of the skin and subcutaneous tissue related to radiation; C44.519 Basal cell carcinoma of skin of other part of trunk; I11.0 Hypertensive heart disease with heart failure; I50.9 Heart failure, unspecified; G47.33 Obstructive sleep apnea (adult) (pediatric); E66.01 Morbid (severe) obesity due to excess calories; Z68.43 Body mass index [BMI] 50.0-59.9, adult; Z86.718 Personal history of other venous thrombosis and embolism; Z86.711 Personal history of pulmonary embolism; Z86.14 Personal history of Methicillin resistant Staphylococcus aureus infection; Z85.820 Personal history of malignant melanoma of skin; Y83.4 Other reconstructive surgery as the cause of abnormal reaction of the patient, or of later complication, without mention of misadventure at the time of the procedure | CPT/HCPCS: 99213 ==

== ENCOUNTER → 2019-04-06 | Outpatient (CLI) | payer MEDICAID | END | disposition home or self-care (01) | LOC: WOUND 07:58 | PROVIDERS: ATTEND Family Medicine | DX: I87.311 Chronic venous hypertension (idiopathic) with ulcer of right lower extremity (principal); L97.811 Non-pressure chronic ulcer of other part of right lower leg limited to breakdown of skin; L98.422 Non-pressure chronic ulcer of back with fat layer exposed; L59.8 Other specified disorders of the skin and subcutaneous tissue related to radiation; C44.519 Basal cell carcinoma of skin of other part of trunk; I11.0 Hypertensive heart disease with heart failure; I50.9 Heart failure, unspecified; G47.33 Obstructive sleep apnea (adult) (pediatric); E66.01 Morbid (severe) obesity due to excess calories; Z68.43 Body mass index [BMI] 50.0-59.9, adult; Z86.718 Personal history of other venous thrombosis and embolism; Z86.711 Personal history of pulmonary embolism; Z86.14 Personal history of Methicillin resistant Staphylococcus aureus infection; Z85.820 Personal history of malignant melanoma of skin; Y83.4 Other reconstructive surgery as the cause of abnormal reaction of the patient, or of later complication, without mention of misadventure at the time of the procedure | CPT/HCPCS: 97602 ==

== ENCOUNTER → 2019-04-09 | Outpatient (CLI) | payer MEDICAID | END | disposition home or self-care (01) | LOC: WOUND 08:15 | PROVIDERS: ATTEND Internal Medicine | DX: I87.311 Chronic venous hypertension (idiopathic) with ulcer of right lower extremity (principal); L97.811 Non-pressure chronic ulcer of other part of right lower leg limited to breakdown of skin; L98.422 Non-pressure chronic ulcer of back with fat layer exposed; L59.8 Other specified disorders of the skin and subcutaneous tissue related to radiation; C44.519 Basal cell carcinoma of skin of other part of trunk; I11.0 Hypertensive heart disease with heart failure; I50.9 Heart failure, unspecified; G47.33 Obstructive sleep apnea (adult) (pediatric); E66.01 Morbid (severe) obesity due to excess calories; Z68.43 Body mass index [BMI] 50.0-59.9, adult; Z86.718 Personal history of other venous thrombosis and embolism; Z86.711 Personal history of pulmonary embolism; Z86.14 Personal history of Methicillin resistant Staphylococcus aureus infection; Z85.820 Personal history of malignant melanoma of skin; Y83.4 Other reconstructive surgery as the cause of abnormal reaction of the patient, or of later complication, without mention of misadventure at the time of the procedure | CPT/HCPCS: 97602 ==

== ENCOUNTER 2019-04-16 07:42 | Outpatient (CLI) | payer MEDICAID | END 2019-04-16 23:59 | disposition home or self-care (01) | LOC: WOUND 07:42 | PROVIDERS: ATTEND Internal Medicine | DX: I87.311 Chronic venous hypertension (idiopathic) with ulcer of right lower extremity (principal); L97.811 Non-pressure chronic ulcer of other part of right lower leg limited to breakdown of skin; L98.422 Non-pressure chronic ulcer of back with fat layer exposed; S80.812D Abrasion, left lower leg, subsequent encounter; L59.8 Other specified disorders of the skin and subcutaneous tissue related to radiation; C44.519 Basal cell carcinoma of skin of other part of trunk; I11.0 Hypertensive heart disease with heart failure; I50.9 Heart failure, unspecified; G47.33 Obstructive sleep apnea (adult) (pediatric); E66.01 Morbid (severe) obesity due to excess calories; Z68.43 Body mass index [BMI] 50.0-59.9, adult; Z86.718 Personal history of other venous thrombosis and embolism; Z86.711 Personal history of pulmonary embolism; Z86.14 Personal history of Methicillin resistant Staphylococcus aureus infection; Z85.820 Personal history of malignant melanoma of skin; Y83.4 Other reconstructive surgery as the cause of abnormal reaction of the patient, or of later complication, without mention of misadventure at the time of the procedure; X58.XXXD Exposure to other specified factors, subsequent encounter | CPT/HCPCS: 97602 ==

== ENCOUNTER → 2019-04-20 | Outpatient (CLI) | payer MEDICAID | END | disposition home or self-care (01) | LOC: WOUND 08:00 | PROVIDERS: ATTEND Family Medicine | DX: I87.311 Chronic venous hypertension (idiopathic) with ulcer of right lower extremity (principal); L97.811 Non-pressure chronic ulcer of other part of right lower leg limited to breakdown of skin; L98.422 Non-pressure chronic ulcer of back with fat layer exposed; S80.812D Abrasion, left lower leg, subsequent encounter; L59.8 Other specified disorders of the skin and subcutaneous tissue related to radiation; C44.519 Basal cell carcinoma of skin of other part of trunk; I11.0 Hypertensive heart disease with heart failure; I50.9 Heart failure, unspecified; G47.33 Obstructive sleep apnea (adult) (pediatric); E66.01 Morbid (severe) obesity due to excess calories; Z86.718 Personal history of other venous thrombosis and embolism; Z86.711 Personal history of pulmonary embolism; Z86.14 Personal history of Methicillin resistant Staphylococcus aureus infection; Z85.820 Personal history of malignant melanoma of skin; Z68.43 Body mass index [BMI] 50.0-59.9, adult; Y83.4 Other reconstructive surgery as the cause of abnormal reaction of the patient, or of later complication, without mention of misadventure at the time of the procedure; X58.XXXD Exposure to other specified factors, subsequent encounter | CPT/HCPCS: 97597 ==

== ENCOUNTER → 2019-04-23 | Outpatient (CLI) | payer MEDICAID | END | disposition home or self-care (01) | LOC: WOUND 08:01 | PROVIDERS: ATTEND Internal Medicine | DX: I87.311 Chronic venous hypertension (idiopathic) with ulcer of right lower extremity (principal); L97.811 Non-pressure chronic ulcer of other part of right lower leg limited to breakdown of skin; L98.422 Non-pressure chronic ulcer of back with fat layer exposed; S80.812D Abrasion, left lower leg, subsequent encounter; L59.8 Other specified disorders of the skin and subcutaneous tissue related to radiation; C44.519 Basal cell carcinoma of skin of other part of trunk; I11.0 Hypertensive heart disease with heart failure; I50.9 Heart failure, unspecified; G47.33 Obstructive sleep apnea (adult) (pediatric); E66.01 Morbid (severe) obesity due to excess calories; Z68.43 Body mass index [BMI] 50.0-59.9, adult; Z86.718 Personal history of other venous thrombosis and embolism; Z86.711 Personal history of pulmonary embolism; Z86.14 Personal history of Methicillin resistant Staphylococcus aureus infection; Z85.820 Personal history of malignant melanoma of skin; X58.XXXD Exposure to other specified factors, subsequent encounter; Y83.4 Other reconstructive surgery as the cause of abnormal reaction of the patient, or of later complication, without mention of misadventure at the time of the procedure | CPT/HCPCS: 97602 ==

== ENCOUNTER → 2019-04-27 | Outpatient (CLI) | payer MEDICAID | END | disposition home or self-care (01) | LOC: WOUND 08:01 | PROVIDERS: ATTEND Family Medicine | DX: I87.311 Chronic venous hypertension (idiopathic) with ulcer of right lower extremity (principal); L97.811 Non-pressure chronic ulcer of other part of right lower leg limited to breakdown of skin; L98.422 Non-pressure chronic ulcer of back with fat layer exposed; S80.812D Abrasion, left lower leg, subsequent encounter; L59.8 Other specified disorders of the skin and subcutaneous tissue related to radiation; C44.519 Basal cell carcinoma of skin of other part of trunk; I11.0 Hypertensive heart disease with heart failure; I50.9 Heart failure, unspecified; G47.33 Obstructive sleep apnea (adult) (pediatric); E66.01 Morbid (severe) obesity due to excess calories; Z86.718 Personal history of other venous thrombosis and embolism; Z86.711 Personal history of pulmonary embolism; Z86.14 Personal history of Methicillin resistant Staphylococcus aureus infection; Z85.820 Personal history of malignant melanoma of skin; Z68.43 Body mass index [BMI] 50.0-59.9, adult; Y83.4 Other reconstructive surgery as the cause of abnormal reaction of the patient, or of later complication, without mention of misadventure at the time of the procedure; X58.XXXD Exposure to other specified factors, subsequent encounter | CPT/HCPCS: 99214 ==

== ENCOUNTER → 2019-04-30 | Outpatient (CLI) | payer MEDICAID | END | disposition home or self-care (01) | LOC: WOUND 11:00 | PROVIDERS: ATTEND Internal Medicine | DX: I87.311 Chronic venous hypertension (idiopathic) with ulcer of right lower extremity (principal); L97.811 Non-pressure chronic ulcer of other part of right lower leg limited to breakdown of skin; L98.422 Non-pressure chronic ulcer of back with fat layer exposed; S80.812D Abrasion, left lower leg, subsequent encounter; L59.8 Other specified disorders of the skin and subcutaneous tissue related to radiation; C44.519 Basal cell carcinoma of skin of other part of trunk; I11.0 Hypertensive heart disease with heart failure; I50.9 Heart failure, unspecified; G47.33 Obstructive sleep apnea (adult) (pediatric); E66.01 Morbid (severe) obesity due to excess calories; Z68.43 Body mass index [BMI] 50.0-59.9, adult; Z86.718 Personal history of other venous thrombosis and embolism; Z86.711 Personal history of pulmonary embolism; Z86.14 Personal history of Methicillin resistant Staphylococcus aureus infection; Z85.820 Personal history of malignant melanoma of skin; X58.XXXD Exposure to other specified factors, subsequent encounter; Y83.4 Other reconstructive surgery as the cause of abnormal reaction of the patient, or of later complication, without mention of misadventure at the time of the procedure | CPT/HCPCS: 99213 ==

== ENCOUNTER 2019-05-04 08:04 | Outpatient (CLI) | payer MEDICAID | END 2019-05-04 23:59 | disposition home or self-care (01) | LOC: WOUND 08:04 | PROVIDERS: ATTEND Family Medicine | DX: I87.311 Chronic venous hypertension (idiopathic) with ulcer of right lower extremity (principal); L97.811 Non-pressure chronic ulcer of other part of right lower leg limited to breakdown of skin; L98.422 Non-pressure chronic ulcer of back with fat layer exposed; S80.812D Abrasion, left lower leg, subsequent encounter; L59.8 Other specified disorders of the skin and subcutaneous tissue related to radiation; C44.519 Basal cell carcinoma of skin of other part of trunk; I11.0 Hypertensive heart disease with heart failure; I50.9 Heart failure, unspecified; G47.33 Obstructive sleep apnea (adult) (pediatric); E66.01 Morbid (severe) obesity due to excess calories; Z68.43 Body mass index [BMI] 50.0-59.9, adult; Z86.718 Personal history of other venous thrombosis and embolism; Z86.711 Personal history of pulmonary embolism; Z86.14 Personal history of Methicillin resistant Staphylococcus aureus infection; Z85.820 Personal history of malignant melanoma of skin; X58.XXXD Exposure to other specified factors, subsequent encounter; Y83.4 Other reconstructive surgery as the cause of abnormal reaction of the patient, or of later complication, without mention of misadventure at the time of the procedure | CPT/HCPCS: 99214 ==

== ENCOUNTER → 2019-05-11 | Outpatient (CLI) | payer MEDICAID | END | disposition home or self-care (01) | LOC: WOUND 08:06 | PROVIDERS: ATTEND Family Medicine | DX: I87.311 Chronic venous hypertension (idiopathic) with ulcer of right lower extremity (principal); L97.811 Non-pressure chronic ulcer of other part of right lower leg limited to breakdown of skin; L98.422 Non-pressure chronic ulcer of back with fat layer exposed; S80.812D Abrasion, left lower leg, subsequent encounter; L59.8 Other specified disorders of the skin and subcutaneous tissue related to radiation; C44.519 Basal cell carcinoma of skin of other part of trunk; I11.0 Hypertensive heart disease with heart failure; I50.9 Heart failure, unspecified; G47.33 Obstructive sleep apnea (adult) (pediatric); E66.01 Morbid (severe) obesity due to excess calories; Z68.43 Body mass index [BMI] 50.0-59.9, adult; Z86.718 Personal history of other venous thrombosis and embolism; Z86.711 Personal history of pulmonary embolism; Z86.14 Personal history of Methicillin resistant Staphylococcus aureus infection; Z85.820 Personal history of malignant melanoma of skin; X58.XXXD Exposure to other specified factors, subsequent encounter; Y83.4 Other reconstructive surgery as the cause of abnormal reaction of the patient, or of later complication, without mention of misadventure at the time of the procedure | CPT/HCPCS: 97597; 97598 ==

== ENCOUNTER → 2019-05-14 | Outpatient (CLI) | payer MEDICAID | END | disposition home or self-care (01) | LOC: WOUND 09:00 | PROVIDERS: ATTEND Internal Medicine | DX: I87.311 Chronic venous hypertension (idiopathic) with ulcer of right lower extremity (principal); L97.811 Non-pressure chronic ulcer of other part of right lower leg limited to breakdown of skin; L98.422 Non-pressure chronic ulcer of back with fat layer exposed; S80.812D Abrasion, left lower leg, subsequent encounter; L59.8 Other specified disorders of the skin and subcutaneous tissue related to radiation; C44.519 Basal cell carcinoma of skin of other part of trunk; I11.0 Hypertensive heart disease with heart failure; I50.9 Heart failure, unspecified; G47.33 Obstructive sleep apnea (adult) (pediatric); E66.01 Morbid (severe) obesity due to excess calories; Z68.43 Body mass index [BMI] 50.0-59.9, adult; Z86.718 Personal history of other venous thrombosis and embolism; Z86.711 Personal history of pulmonary embolism; Z86.14 Personal history of Methicillin resistant Staphylococcus aureus infection; Z85.820 Personal history of malignant melanoma of skin; X58.XXXD Exposure to other specified factors, subsequent encounter; Y83.4 Other reconstructive surgery as the cause of abnormal reaction of the patient, or of later complication, without mention of misadventure at the time of the procedure | CPT/HCPCS: 97602 ==

== ENCOUNTER → 2019-05-18 | Outpatient (CLI) | payer MEDICAID | END | disposition home or self-care (01) | LOC: WOUND 08:07 | PROVIDERS: ATTEND Family Medicine | DX: I87.311 Chronic venous hypertension (idiopathic) with ulcer of right lower extremity (principal); L97.811 Non-pressure chronic ulcer of other part of right lower leg limited to breakdown of skin; L98.422 Non-pressure chronic ulcer of back with fat layer exposed; S80.812D Abrasion, left lower leg, subsequent encounter; L59.8 Other specified disorders of the skin and subcutaneous tissue related to radiation; C44.519 Basal cell carcinoma of skin of other part of trunk; I11.0 Hypertensive heart disease with heart failure; I50.9 Heart failure, unspecified; G47.33 Obstructive sleep apnea (adult) (pediatric); E66.01 Morbid (severe) obesity due to excess calories; Z68.43 Body mass index [BMI] 50.0-59.9, adult; Z86.718 Personal history of other venous thrombosis and embolism; Z86.711 Personal history of pulmonary embolism; Z86.14 Personal history of Methicillin resistant Staphylococcus aureus infection; Z85.820 Personal history of malignant melanoma of skin; X58.XXXD Exposure to other specified factors, subsequent encounter; Y83.4 Other reconstructive surgery as the cause of abnormal reaction of the patient, or of later complication, without mention of misadventure at the time of the procedure | CPT/HCPCS: 99214 ==

== ENCOUNTER 2019-05-21 08:35 | Outpatient (CLI) | payer MEDICAID | END 2019-05-21 23:59 | disposition home or self-care (01) | LOC: WOUND 08:35 | PROVIDERS: ATTEND Surgery | DX: I87.311 Chronic venous hypertension (idiopathic) with ulcer of right lower extremity (principal); L97.811 Non-pressure chronic ulcer of other part of right lower leg limited to breakdown of skin; L98.422 Non-pressure chronic ulcer of back with fat layer exposed; S80.812D Abrasion, left lower leg, subsequent encounter; L59.8 Other specified disorders of the skin and subcutaneous tissue related to radiation; C44.519 Basal cell carcinoma of skin of other part of trunk; I11.0 Hypertensive heart disease with heart failure; I50.9 Heart failure, unspecified; G47.33 Obstructive sleep apnea (adult) (pediatric); E66.01 Morbid (severe) obesity due to excess calories; Z68.43 Body mass index [BMI] 50.0-59.9, adult; Z86.718 Personal history of other venous thrombosis and embolism; Z86.711 Personal history of pulmonary embolism; Z86.14 Personal history of Methicillin resistant Staphylococcus aureus infection; Z85.820 Personal history of malignant melanoma of skin; X58.XXXD Exposure to other specified factors, subsequent encounter; Y83.4 Other reconstructive surgery as the cause of abnormal reaction of the patient, or of later complication, without mention of misadventure at the time of the procedure | CPT/HCPCS: 97602 ==

== ENCOUNTER 2019-05-25 08:00 | Outpatient (CLI) | payer MEDICAID | END 2019-05-25 23:59 | disposition home or self-care (01) | LOC: WOUND 08:00 | PROVIDERS: ATTEND Family Medicine | DX: I87.311 Chronic venous hypertension (idiopathic) with ulcer of right lower extremity (principal); L97.811 Non-pressure chronic ulcer of other part of right lower leg limited to breakdown of skin; L98.422 Non-pressure chronic ulcer of back with fat layer exposed; S80.812D Abrasion, left lower leg, subsequent encounter; L59.8 Other specified disorders of the skin and subcutaneous tissue related to radiation; C44.519 Basal cell carcinoma of skin of other part of trunk; I11.0 Hypertensive heart disease with heart failure; I50.9 Heart failure, unspecified; G47.33 Obstructive sleep apnea (adult) (pediatric); E66.01 Morbid (severe) obesity due to excess calories; Z68.43 Body mass index [BMI] 50.0-59.9, adult; Z86.718 Personal history of other venous thrombosis and embolism; Z86.711 Personal history of pulmonary embolism; Z86.14 Personal history of Methicillin resistant Staphylococcus aureus infection; Z85.820 Personal history of malignant melanoma of skin; X58.XXXD Exposure to other specified factors, subsequent encounter; Y83.4 Other reconstructive surgery as the cause of abnormal reaction of the patient, or of later complication, without mention of misadventure at the time of the procedure | CPT/HCPCS: 97602 ==

== ENCOUNTER 2019-05-29 07:44 | Outpatient (CLI) | payer MEDICAID | END 2019-05-29 23:59 | disposition home or self-care (01) | LOC: WOUND 07:44 | PROVIDERS: ATTEND Internal Medicine Cardiovascular Disease | DX: I87.311 Chronic venous hypertension (idiopathic) with ulcer of right lower extremity (principal); L97.811 Non-pressure chronic ulcer of other part of right lower leg limited to breakdown of skin; L98.422 Non-pressure chronic ulcer of back with fat layer exposed; S80.812D Abrasion, left lower leg, subsequent encounter; L59.8 Other specified disorders of the skin and subcutaneous tissue related to radiation; C44.519 Basal cell carcinoma of skin of other part of trunk; I11.0 Hypertensive heart disease with heart failure; I50.9 Heart failure, unspecified; G47.33 Obstructive sleep apnea (adult) (pediatric); E66.01 Morbid (severe) obesity due to excess calories; Z68.43 Body mass index [BMI] 50.0-59.9, adult; Z86.718 Personal history of other venous thrombosis and embolism; Z86.711 Personal history of pulmonary embolism; Z86.14 Personal history of Methicillin resistant Staphylococcus aureus infection; Z85.820 Personal history of malignant melanoma of skin; X58.XXXD Exposure to other specified factors, subsequent encounter; Y83.4 Other reconstructive surgery as the cause of abnormal reaction of the patient, or of later complication, without mention of misadventure at the time of the procedure | CPT/HCPCS: 99212 ==

== ENCOUNTER → 2019-06-01 | Outpatient (CLI) | payer MEDICAID | END | disposition home or self-care (01) | LOC: WOUND 07:48 | PROVIDERS: ATTEND Family Medicine | DX: I87.311 Chronic venous hypertension (idiopathic) with ulcer of right lower extremity (principal); L97.811 Non-pressure chronic ulcer of other part of right lower leg limited to breakdown of skin; L98.422 Non-pressure chronic ulcer of back with fat layer exposed; S80.812D Abrasion, left lower leg, subsequent encounter; L59.8 Other specified disorders of the skin and subcutaneous tissue related to radiation; C44.519 Basal cell carcinoma of skin of other part of trunk; I11.0 Hypertensive heart disease with heart failure; I50.9 Heart failure, unspecified; G47.33 Obstructive sleep apnea (adult) (pediatric); E66.01 Morbid (severe) obesity due to excess calories; Z68.43 Body mass index [BMI] 50.0-59.9, adult; Z86.718 Personal history of other venous thrombosis and embolism; Z86.711 Personal history of pulmonary embolism; Z86.14 Personal history of Methicillin resistant Staphylococcus aureus infection; Z85.820 Personal history of malignant melanoma of skin; X58.XXXD Exposure to other specified factors, subsequent encounter; Y83.4 Other reconstructive surgery as the cause of abnormal reaction of the patient, or of later complication, without mention of misadventure at the time of the procedure | CPT/HCPCS: 99213 ==

== ENCOUNTER 2019-06-04 08:04 | Outpatient (CLI) | payer MEDICAID | END 2019-06-04 23:59 | disposition home or self-care (01) | LOC: WOUND 08:04 | PROVIDERS: ATTEND Internal Medicine | DX: L98.422 Non-pressure chronic ulcer of back with fat layer exposed (principal); C44.519 Basal cell carcinoma of skin of other part of trunk; L59.8 Other specified disorders of the skin and subcutaneous tissue related to radiation; I87.311 Chronic venous hypertension (idiopathic) with ulcer of right lower extremity; L97.811 Non-pressure chronic ulcer of other part of right lower leg limited to breakdown of skin; S80.812D Abrasion, left lower leg, subsequent encounter; G47.33 Obstructive sleep apnea (adult) (pediatric); I11.0 Hypertensive heart disease with heart failure; I50.9 Heart failure, unspecified; E66.01 Morbid (severe) obesity due to excess calories; Z68.43 Body mass index [BMI] 50.0-59.9, adult; Z86.718 Personal history of other venous thrombosis and embolism; Z86.711 Personal history of pulmonary embolism; Z86.14 Personal history of Methicillin resistant Staphylococcus aureus infection; X58.XXXD Exposure to other specified factors, subsequent encounter; Y84.2 Radiological procedure and radiotherapy as the cause of abnormal reaction of the patient, or of later complication, without mention of misadventure at the time of the procedure | CPT/HCPCS: 99213 ==

== ENCOUNTER 2019-06-08 07:56 | Outpatient (CLI) | payer MEDICAID | END 2019-06-08 23:59 | disposition home or self-care (01) | LOC: WOUND 07:56 | PROVIDERS: ATTEND Family Medicine | DX: I87.311 Chronic venous hypertension (idiopathic) with ulcer of right lower extremity (principal); L98.422 Non-pressure chronic ulcer of back with fat layer exposed; C44.519 Basal cell carcinoma of skin of other part of trunk; L59.8 Other specified disorders of the skin and subcutaneous tissue related to radiation; L97.811 Non-pressure chronic ulcer of other part of right lower leg limited to breakdown of skin; S80.812D Abrasion, left lower leg, subsequent encounter; G47.33 Obstructive sleep apnea (adult) (pediatric); I11.0 Hypertensive heart disease with heart failure; I50.9 Heart failure, unspecified; E66.01 Morbid (severe) obesity due to excess calories; Z68.43 Body mass index [BMI] 50.0-59.9, adult; Z86.718 Personal history of other venous thrombosis and embolism; Z86.711 Personal history of pulmonary embolism; Z86.14 Personal history of Methicillin resistant Staphylococcus aureus infection; X58.XXXD Exposure to other specified factors, subsequent encounter; Y84.2 Radiological procedure and radiotherapy as the cause of abnormal reaction of the patient, or of later complication, without mention of misadventure at the time of the procedure | CPT/HCPCS: 97602 ==

== ENCOUNTER 2019-06-11 08:05 | Outpatient (CLI) | payer MEDICAID | END 2019-06-11 23:59 | disposition home or self-care (01) | LOC: WOUND 08:05 | PROVIDERS: ATTEND Internal Medicine | DX: I87.311 Chronic venous hypertension (idiopathic) with ulcer of right lower extremity (principal); L97.811 Non-pressure chronic ulcer of other part of right lower leg limited to breakdown of skin; L98.422 Non-pressure chronic ulcer of back with fat layer exposed; C44.519 Basal cell carcinoma of skin of other part of trunk; L59.8 Other specified disorders of the skin and subcutaneous tissue related to radiation; S80.812D Abrasion, left lower leg, subsequent encounter; G47.33 Obstructive sleep apnea (adult) (pediatric); I11.0 Hypertensive heart disease with heart failure; I50.9 Heart failure, unspecified; E66.01 Morbid (severe) obesity due to excess calories; Z68.43 Body mass index [BMI] 50.0-59.9, adult; Z86.718 Personal history of other venous thrombosis and embolism; Z86.711 Personal history of pulmonary embolism; Z86.14 Personal history of Methicillin resistant Staphylococcus aureus infection; X58.XXXD Exposure to other specified factors, subsequent encounter; Y84.2 Radiological procedure and radiotherapy as the cause of abnormal reaction of the patient, or of later complication, without mention of misadventure at the time of the procedure | CPT/HCPCS: 97602 ==

== ENCOUNTER 2019-06-15 07:49 | Outpatient (CLI) | payer MEDICAID | END 2019-06-15 23:59 | disposition home or self-care (01) | LOC: WOUND 07:49 | PROVIDERS: ATTEND Family Medicine | DX: I87.311 Chronic venous hypertension (idiopathic) with ulcer of right lower extremity (principal); L97.811 Non-pressure chronic ulcer of other part of right lower leg limited to breakdown of skin; L98.422 Non-pressure chronic ulcer of back with fat layer exposed; C44.519 Basal cell carcinoma of skin of other part of trunk; L59.8 Other specified disorders of the skin and subcutaneous tissue related to radiation; S80.812D Abrasion, left lower leg, subsequent encounter; G47.33 Obstructive sleep apnea (adult) (pediatric); I11.0 Hypertensive heart disease with heart failure; I50.9 Heart failure, unspecified; E66.01 Morbid (severe) obesity due to excess calories; Z68.43 Body mass index [BMI] 50.0-59.9, adult; Z86.718 Personal history of other venous thrombosis and embolism; Z86.711 Personal history of pulmonary embolism; Z86.14 Personal history of Methicillin resistant Staphylococcus aureus infection; X58.XXXD Exposure to other specified factors, subsequent encounter; Y84.2 Radiological procedure and radiotherapy as the cause of abnormal reaction of the patient, or of later complication, without mention of misadventure at the time of the procedure | CPT/HCPCS: 99213 ==

== ENCOUNTER 2019-06-18 07:39 | Outpatient (CLI) | payer MEDICAID | END 2019-06-18 23:59 | disposition home or self-care (01) | LOC: WOUND 07:39 | PROVIDERS: ATTEND Internal Medicine | DX: I87.311 Chronic venous hypertension (idiopathic) with ulcer of right lower extremity (principal); L97.811 Non-pressure chronic ulcer of other part of right lower leg limited to breakdown of skin; L98.422 Non-pressure chronic ulcer of back with fat layer exposed; C44.519 Basal cell carcinoma of skin of other part of trunk; L59.8 Other specified disorders of the skin and subcutaneous tissue related to radiation; S80.812D Abrasion, left lower leg, subsequent encounter; G47.33 Obstructive sleep apnea (adult) (pediatric); I11.0 Hypertensive heart disease with heart failure; I50.9 Heart failure, unspecified; E66.01 Morbid (severe) obesity due to excess calories; Z68.43 Body mass index [BMI] 50.0-59.9, adult; Z86.718 Personal history of other venous thrombosis and embolism; Z86.711 Personal history of pulmonary embolism; Z86.14 Personal history of Methicillin resistant Staphylococcus aureus infection; X58.XXXD Exposure to other specified factors, subsequent encounter; Y84.2 Radiological procedure and radiotherapy as the cause of abnormal reaction of the patient, or of later complication, without mention of misadventure at the time of the procedure | CPT/HCPCS: 99213 ==

== ENCOUNTER 2019-06-22 08:29 | Outpatient (CLI) | payer MEDICAID | END 2019-06-22 23:59 | disposition home or self-care (01) | LOC: WOUND 08:29 | PROVIDERS: ATTEND Family Medicine | DX: I87.311 Chronic venous hypertension (idiopathic) with ulcer of right lower extremity (principal); L97.811 Non-pressure chronic ulcer of other part of right lower leg limited to breakdown of skin; L98.422 Non-pressure chronic ulcer of back with fat layer exposed; C44.519 Basal cell carcinoma of skin of other part of trunk; L59.8 Other specified disorders of the skin and subcutaneous tissue related to radiation; S80.812D Abrasion, left lower leg, subsequent encounter; G47.33 Obstructive sleep apnea (adult) (pediatric); I11.0 Hypertensive heart disease with heart failure; I50.9 Heart failure, unspecified; E66.01 Morbid (severe) obesity due to excess calories; Z68.43 Body mass index [BMI] 50.0-59.9, adult; Z86.718 Personal history of other venous thrombosis and embolism; Z86.711 Personal history of pulmonary embolism; Z86.14 Personal history of Methicillin resistant Staphylococcus aureus infection; X58.XXXD Exposure to other specified factors, subsequent encounter; Y84.2 Radiological procedure and radiotherapy as the cause of abnormal reaction of the patient, or of later complication, without mention of misadventure at the time of the procedure | CPT/HCPCS: 97602 ==

== ENCOUNTER → 2019-06-25 | Outpatient (CLI) | payer MEDICAID | END | disposition home or self-care (01) | LOC: WOUND 07:50 | PROVIDERS: ATTEND Internal Medicine | DX: I87.311 Chronic venous hypertension (idiopathic) with ulcer of right lower extremity (principal); L97.811 Non-pressure chronic ulcer of other part of right lower leg limited to breakdown of skin; L98.422 Non-pressure chronic ulcer of back with fat layer exposed; C44.519 Basal cell carcinoma of skin of other part of trunk; L59.8 Other specified disorders of the skin and subcutaneous tissue related to radiation; S80.812D Abrasion, left lower leg, subsequent encounter; G47.33 Obstructive sleep apnea (adult) (pediatric); I11.0 Hypertensive heart disease with heart failure; I50.9 Heart failure, unspecified; E66.01 Morbid (severe) obesity due to excess calories; Z68.43 Body mass index [BMI] 50.0-59.9, adult; Z86.718 Personal history of other venous thrombosis and embolism; Z86.711 Personal history of pulmonary embolism; Z86.14 Personal history of Methicillin resistant Staphylococcus aureus infection; X58.XXXD Exposure to other specified factors, subsequent encounter; Y84.2 Radiological procedure and radiotherapy as the cause of abnormal reaction of the patient, or of later complication, without mention of misadventure at the time of the procedure | CPT/HCPCS: 99214 ==

== ENCOUNTER 2019-06-29 08:21 | Outpatient (CLI) | payer MEDICAID | END 2019-06-29 23:59 | disposition home or self-care (01) | LOC: WOUND 08:21 | PROVIDERS: ATTEND Family Medicine | DX: L98.422 Non-pressure chronic ulcer of back with fat layer exposed (principal); L59.8 Other specified disorders of the skin and subcutaneous tissue related to radiation; I87.311 Chronic venous hypertension (idiopathic) with ulcer of right lower extremity; L97.811 Non-pressure chronic ulcer of other part of right lower leg limited to breakdown of skin; S80.812D Abrasion, left lower leg, subsequent encounter; I11.0 Hypertensive heart disease with heart failure; I50.9 Heart failure, unspecified; C44.519 Basal cell carcinoma of skin of other part of trunk; E66.01 Morbid (severe) obesity due to excess calories; G47.33 Obstructive sleep apnea (adult) (pediatric); Z68.43 Body mass index [BMI] 50.0-59.9, adult; Z86.14 Personal history of Methicillin resistant Staphylococcus aureus infection; Z86.718 Personal history of other venous thrombosis and embolism; Z86.711 Personal history of pulmonary embolism; Z85.828 Personal history of other malignant neoplasm of skin; X58.XXXD Exposure to other specified factors, subsequent encounter | CPT/HCPCS: 99213 ==

== ENCOUNTER → 2019-07-02 | Outpatient (CLI) | payer MEDICAID | END | disposition home or self-care (01) | LOC: WOUND 08:16 | PROVIDERS: ATTEND Internal Medicine | DX: L98.422 Non-pressure chronic ulcer of back with fat layer exposed (principal); L59.8 Other specified disorders of the skin and subcutaneous tissue related to radiation; I87.311 Chronic venous hypertension (idiopathic) with ulcer of right lower extremity; L97.811 Non-pressure chronic ulcer of other part of right lower leg limited to breakdown of skin; I11.0 Hypertensive heart disease with heart failure; I50.9 Heart failure, unspecified; C44.519 Basal cell carcinoma of skin of other part of trunk; E66.01 Morbid (severe) obesity due to excess calories; G47.33 Obstructive sleep apnea (adult) (pediatric); Z68.43 Body mass index [BMI] 50.0-59.9, adult; Z86.14 Personal history of Methicillin resistant Staphylococcus aureus infection; Z85.828 Personal history of other malignant neoplasm of skin; Z86.718 Personal history of other venous thrombosis and embolism; Z86.711 Personal history of pulmonary embolism | CPT/HCPCS: 97602 ==

== ENCOUNTER 2019-07-05 08:01 | Outpatient (CLI) | payer MEDICAID | END 2019-07-05 23:59 | disposition home or self-care (01) | LOC: WOUND 08:01 | PROVIDERS: ATTEND Internal Medicine Cardiovascular Disease | DX: L98.422 Non-pressure chronic ulcer of back with fat layer exposed (principal); L59.8 Other specified disorders of the skin and subcutaneous tissue related to radiation; I87.311 Chronic venous hypertension (idiopathic) with ulcer of right lower extremity; L97.811 Non-pressure chronic ulcer of other part of right lower leg limited to breakdown of skin; I11.0 Hypertensive heart disease with heart failure; I50.9 Heart failure, unspecified; C44.519 Basal cell carcinoma of skin of other part of trunk; E66.01 Morbid (severe) obesity due to excess calories; G47.33 Obstructive sleep apnea (adult) (pediatric); Z68.43 Body mass index [BMI] 50.0-59.9, adult; Z86.14 Personal history of Methicillin resistant Staphylococcus aureus infection; Z85.828 Personal history of other malignant neoplasm of skin; Z86.711 Personal history of pulmonary embolism | CPT/HCPCS: 99212 ==

== ENCOUNTER → 2019-07-09 | Outpatient (CLI) | payer MEDICAID | END | disposition home or self-care (01) | LOC: WOUND 07:40 | PROVIDERS: ATTEND Internal Medicine | DX: L98.422 Non-pressure chronic ulcer of back with fat layer exposed (principal); L59.8 Other specified disorders of the skin and subcutaneous tissue related to radiation; I87.311 Chronic venous hypertension (idiopathic) with ulcer of right lower extremity; L97.811 Non-pressure chronic ulcer of other part of right lower leg limited to breakdown of skin; S80.812D Abrasion, left lower leg, subsequent encounter; I11.0 Hypertensive heart disease with heart failure; I50.9 Heart failure, unspecified; C44.519 Basal cell carcinoma of skin of other part of trunk; E66.01 Morbid (severe) obesity due to excess calories; G47.33 Obstructive sleep apnea (adult) (pediatric); Z86.14 Personal history of Methicillin resistant Staphylococcus aureus infection; Z85.828 Personal history of other malignant neoplasm of skin; Z86.711 Personal history of pulmonary embolism; Z86.718 Personal history of other venous thrombosis and embolism; Z68.43 Body mass index [BMI] 50.0-59.9, adult; X58.XXXD Exposure to other specified factors, subsequent encounter | CPT/HCPCS: 99212 ==

== ENCOUNTER → 2019-07-13 | Outpatient (CLI) | payer MEDICAID | END | disposition home or self-care (01) | LOC: WOUND 08:02 | PROVIDERS: ATTEND Family Medicine | DX: L98.422 Non-pressure chronic ulcer of back with fat layer exposed (principal); L59.8 Other specified disorders of the skin and subcutaneous tissue related to radiation; I87.311 Chronic venous hypertension (idiopathic) with ulcer of right lower extremity; L97.811 Non-pressure chronic ulcer of other part of right lower leg limited to breakdown of skin; S80.812D Abrasion, left lower leg, subsequent encounter; I11.0 Hypertensive heart disease with heart failure; I50.9 Heart failure, unspecified; C44.519 Basal cell carcinoma of skin of other part of trunk; E66.01 Morbid (severe) obesity due to excess calories; G47.33 Obstructive sleep apnea (adult) (pediatric); Z68.43 Body mass index [BMI] 50.0-59.9, adult; Z86.14 Personal history of Methicillin resistant Staphylococcus aureus infection; Z86.718 Personal history of other venous thrombosis and embolism; Z86.711 Personal history of pulmonary embolism; Z85.828 Personal history of other malignant neoplasm of skin; X58.XXXD Exposure to other specified factors, subsequent encounter | CPT/HCPCS: 97602 ==

== ENCOUNTER → 2019-07-16 | Outpatient (CLI) | payer MEDICAID | END | disposition home or self-care (01) | LOC: WOUND 07:45 | PROVIDERS: ATTEND Internal Medicine | DX: L98.422 Non-pressure chronic ulcer of back with fat layer exposed (principal); L59.8 Other specified disorders of the skin and subcutaneous tissue related to radiation; I87.311 Chronic venous hypertension (idiopathic) with ulcer of right lower extremity; L97.811 Non-pressure chronic ulcer of other part of right lower leg limited to breakdown of skin; S80.812D Abrasion, left lower leg, subsequent encounter; I11.0 Hypertensive heart disease with heart failure; I50.9 Heart failure, unspecified; E66.01 Morbid (severe) obesity due to excess calories; C44.519 Basal cell carcinoma of skin of other part of trunk; G47.33 Obstructive sleep apnea (adult) (pediatric); Z86.14 Personal history of Methicillin resistant Staphylococcus aureus infection; Z85.828 Personal history of other malignant neoplasm of skin; Z86.718 Personal history of other venous thrombosis and embolism; Z86.711 Personal history of pulmonary embolism; X58.XXXD Exposure to other specified factors, subsequent encounter | CPT/HCPCS: 99212 ==

== ENCOUNTER 2019-07-20 08:00 | Outpatient (CLI) | payer MEDICAID | END 2019-07-20 23:59 | disposition home or self-care (01) | LOC: WOUND 08:00 | PROVIDERS: ATTEND Family Medicine | DX: L98.422 Non-pressure chronic ulcer of back with fat layer exposed (principal); L59.8 Other specified disorders of the skin and subcutaneous tissue related to radiation; I87.311 Chronic venous hypertension (idiopathic) with ulcer of right lower extremity; L97.811 Non-pressure chronic ulcer of other part of right lower leg limited to breakdown of skin; S80.812D Abrasion, left lower leg, subsequent encounter; I11.0 Hypertensive heart disease with heart failure; I50.9 Heart failure, unspecified; E66.01 Morbid (severe) obesity due to excess calories; C44.519 Basal cell carcinoma of skin of other part of trunk; G47.33 Obstructive sleep apnea (adult) (pediatric); Z86.14 Personal history of Methicillin resistant Staphylococcus aureus infection; Z85.828 Personal history of other malignant neoplasm of skin; Z86.718 Personal history of other venous thrombosis and embolism; Z86.711 Personal history of pulmonary embolism; X58.XXXD Exposure to other specified factors, subsequent encounter | CPT/HCPCS: 97602 ==

== ENCOUNTER → 2019-07-23 | Outpatient (CLI) | payer MEDICAID | END | disposition home or self-care (01) | LOC: WOUND 07:52 | PROVIDERS: ATTEND Internal Medicine | DX: I87.311 Chronic venous hypertension (idiopathic) with ulcer of right lower extremity (principal); L97.811 Non-pressure chronic ulcer of other part of right lower leg limited to breakdown of skin; L98.422 Non-pressure chronic ulcer of back with fat layer exposed; L59.8 Other specified disorders of the skin and subcutaneous tissue related to radiation; S80.812D Abrasion, left lower leg, subsequent encounter; I11.0 Hypertensive heart disease with heart failure; I50.9 Heart failure, unspecified; E66.01 Morbid (severe) obesity due to excess calories; C44.519 Basal cell carcinoma of skin of other part of trunk; G47.33 Obstructive sleep apnea (adult) (pediatric); Z86.14 Personal history of Methicillin resistant Staphylococcus aureus infection; Z85.828 Personal history of other malignant neoplasm of skin; Z86.718 Personal history of other venous thrombosis and embolism; Z86.711 Personal history of pulmonary embolism; X58.XXXD Exposure to other specified factors, subsequent encounter | CPT/HCPCS: 97602 ==

== ENCOUNTER → 2019-08-03 | Outpatient (CLI) | payer MEDICAID | END | disposition home or self-care (01) | LOC: WOUND 07:53 | PROVIDERS: ATTEND Family Medicine | DX: L98.422 Non-pressure chronic ulcer of back with fat layer exposed (principal); L59.8 Other specified disorders of the skin and subcutaneous tissue related to radiation; I87.311 Chronic venous hypertension (idiopathic) with ulcer of right lower extremity; L97.811 Non-pressure chronic ulcer of other part of right lower leg limited to breakdown of skin; S80.812D Abrasion, left lower leg, subsequent encounter; C44.519 Basal cell carcinoma of skin of other part of trunk; I11.0 Hypertensive heart disease with heart failure; I50.9 Heart failure, unspecified; E66.01 Morbid (severe) obesity due to excess calories; G47.33 Obstructive sleep apnea (adult) (pediatric); Z68.43 Body mass index [BMI] 50.0-59.9, adult; Z86.14 Personal history of Methicillin resistant Staphylococcus aureus infection; Z86.718 Personal history of other venous thrombosis and embolism; Z86.711 Personal history of pulmonary embolism; Y84.2 Radiological procedure and radiotherapy as the cause of abnormal reaction of the patient, or of later complication, without mention of misadventure at the time of the procedure; X58.XXXD Exposure to other specified factors, subsequent encounter | CPT/HCPCS: 99213 ==

== ENCOUNTER 2019-08-06 07:48 | Outpatient (CLI) | payer MEDICAID | END 2019-08-06 23:59 | disposition home or self-care (01) | LOC: WOUND 07:48 | PROVIDERS: ATTEND Internal Medicine | DX: L98.422 Non-pressure chronic ulcer of back with fat layer exposed (principal); L59.8 Other specified disorders of the skin and subcutaneous tissue related to radiation; I87.311 Chronic venous hypertension (idiopathic) with ulcer of right lower extremity; L97.811 Non-pressure chronic ulcer of other part of right lower leg limited to breakdown of skin; C44.519 Basal cell carcinoma of skin of other part of trunk; S80.812D Abrasion, left lower leg, subsequent encounter; I11.0 Hypertensive heart disease with heart failure; I50.9 Heart failure, unspecified; E66.01 Morbid (severe) obesity due to excess calories; G47.33 Obstructive sleep apnea (adult) (pediatric); Z68.43 Body mass index [BMI] 50.0-59.9, adult; Z86.14 Personal history of Methicillin resistant Staphylococcus aureus infection; Z86.718 Personal history of other venous thrombosis and embolism; Z86.711 Personal history of pulmonary embolism; Y84.2 Radiological procedure and radiotherapy as the cause of abnormal reaction of the patient, or of later complication, without mention of misadventure at the time of the procedure; X58.XXXD Exposure to other specified factors, subsequent encounter | CPT/HCPCS: 97602 ==

== ENCOUNTER 2019-08-10 07:51 | Outpatient (CLI) | payer MEDICAID | END 2019-08-10 23:59 | disposition home or self-care (01) | LOC: WOUND 07:51 | PROVIDERS: ATTEND Family Medicine | DX: L98.422 Non-pressure chronic ulcer of back with fat layer exposed (principal); L59.8 Other specified disorders of the skin and subcutaneous tissue related to radiation; I87.311 Chronic venous hypertension (idiopathic) with ulcer of right lower extremity; L97.811 Non-pressure chronic ulcer of other part of right lower leg limited to breakdown of skin; C44.519 Basal cell carcinoma of skin of other part of trunk; S80.812D Abrasion, left lower leg, subsequent encounter; I11.0 Hypertensive heart disease with heart failure; I50.9 Heart failure, unspecified; E66.01 Morbid (severe) obesity due to excess calories; G47.33 Obstructive sleep apnea (adult) (pediatric); Z68.43 Body mass index [BMI] 50.0-59.9, adult; Z86.14 Personal history of Methicillin resistant Staphylococcus aureus infection; Z86.718 Personal history of other venous thrombosis and embolism; Z86.711 Personal history of pulmonary embolism; Z85.828 Personal history of other malignant neoplasm of skin; Z84.2 Family history of other diseases of the genitourinary system; X58.XXXD Exposure to other specified factors, subsequent encounter; Y84.2 Radiological procedure and radiotherapy as the cause of abnormal reaction of the patient, or of later complication, without mention of misadventure at the time of the procedure | CPT/HCPCS: 97602; 99215 ==

== ENCOUNTER → 2019-08-13 | Outpatient (CLI) | payer MEDICAID | END | disposition home or self-care (01) | LOC: WOUND 08:00 | PROVIDERS: ATTEND Family Medicine | DX: I87.311 Chronic venous hypertension (idiopathic) with ulcer of right lower extremity (principal); L97.811 Non-pressure chronic ulcer of other part of right lower leg limited to breakdown of skin; L98.422 Non-pressure chronic ulcer of back with fat layer exposed; L59.8 Other specified disorders of the skin and subcutaneous tissue related to radiation; S80.812D Abrasion, left lower leg, subsequent encounter; C44.519 Basal cell carcinoma of skin of other part of trunk; I11.0 Hypertensive heart disease with heart failure; I50.9 Heart failure, unspecified; E66.01 Morbid (severe) obesity due to excess calories; G47.33 Obstructive sleep apnea (adult) (pediatric); Z68.43 Body mass index [BMI] 50.0-59.9, adult; Z86.14 Personal history of Methicillin resistant Staphylococcus aureus infection; Z86.718 Personal history of other venous thrombosis and embolism; Z86.711 Personal history of pulmonary embolism; Y84.2 Radiological procedure and radiotherapy as the cause of abnormal reaction of the patient, or of later complication, without mention of misadventure at the time of the procedure; X58.XXXD Exposure to other specified factors, subsequent encounter | CPT/HCPCS: 99214 ==

== ENCOUNTER → 2019-08-17 | Outpatient (CLI) | payer MEDICAID | END | disposition home or self-care (01) | LOC: WOUND 07:47 | PROVIDERS: ATTEND Family Medicine | DX: L98.422 Non-pressure chronic ulcer of back with fat layer exposed (principal); L59.8 Other specified disorders of the skin and subcutaneous tissue related to radiation; I87.311 Chronic venous hypertension (idiopathic) with ulcer of right lower extremity; L97.811 Non-pressure chronic ulcer of other part of right lower leg limited to breakdown of skin; C44.519 Basal cell carcinoma of skin of other part of trunk; S80.812D Abrasion, left lower leg, subsequent encounter; I11.0 Hypertensive heart disease with heart failure; I50.9 Heart failure, unspecified; E66.01 Morbid (severe) obesity due to excess calories; G47.33 Obstructive sleep apnea (adult) (pediatric); Z68.43 Body mass index [BMI] 50.0-59.9, adult; Z86.14 Personal history of Methicillin resistant Staphylococcus aureus infection; Z86.718 Personal history of other venous thrombosis and embolism; Z86.711 Personal history of pulmonary embolism; Z84.2 Family history of other diseases of the genitourinary system; X58.XXXD Exposure to other specified factors, subsequent encounter | CPT/HCPCS: 99213 ==

== ENCOUNTER 2019-08-24 08:11 | Outpatient (CLI) | payer MEDICAID | END 2019-08-24 23:59 | disposition home or self-care (01) | LOC: WOUND 08:11 | PROVIDERS: ATTEND Family Medicine | DX: L98.422 Non-pressure chronic ulcer of back with fat layer exposed (principal); L59.8 Other specified disorders of the skin and subcutaneous tissue related to radiation; I87.311 Chronic venous hypertension (idiopathic) with ulcer of right lower extremity; L97.811 Non-pressure chronic ulcer of other part of right lower leg limited to breakdown of skin; C44.519 Basal cell carcinoma of skin of other part of trunk; S80.812D Abrasion, left lower leg, subsequent encounter; I11.0 Hypertensive heart disease with heart failure; I50.9 Heart failure, unspecified; E66.01 Morbid (severe) obesity due to excess calories; G47.33 Obstructive sleep apnea (adult) (pediatric); Z86.14 Personal history of Methicillin resistant Staphylococcus aureus infection; Z68.43 Body mass index [BMI] 50.0-59.9, adult; Z86.718 Personal history of other venous thrombosis and embolism; Z86.711 Personal history of pulmonary embolism; Z84.2 Family history of other diseases of the genitourinary system; X58.XXXD Exposure to other specified factors, subsequent encounter | CPT/HCPCS: 99213 ==

== ENCOUNTER 2019-08-31 07:41 | Outpatient (CLI) | payer MEDICAID | END 2019-08-31 23:59 | disposition home or self-care (01) | LOC: WOUND 07:41 | PROVIDERS: ATTEND Family Medicine | DX: L98.422 Non-pressure chronic ulcer of back with fat layer exposed (principal); L59.8 Other specified disorders of the skin and subcutaneous tissue related to radiation; I87.311 Chronic venous hypertension (idiopathic) with ulcer of right lower extremity; L97.811 Non-pressure chronic ulcer of other part of right lower leg limited to breakdown of skin; C44.519 Basal cell carcinoma of skin of other part of trunk; S80.812D Abrasion, left lower leg, subsequent encounter; I11.0 Hypertensive heart disease with heart failure; I50.9 Heart failure, unspecified; E66.01 Morbid (severe) obesity due to excess calories; G47.33 Obstructive sleep apnea (adult) (pediatric); Z86.14 Personal history of Methicillin resistant Staphylococcus aureus infection; Z68.43 Body mass index [BMI] 50.0-59.9, adult; Z86.718 Personal history of other venous thrombosis and embolism; Z86.711 Personal history of pulmonary embolism; Z84.2 Family history of other diseases of the genitourinary system; X58.XXXD Exposure to other specified factors, subsequent encounter | CPT/HCPCS: 11104 ==

== ENCOUNTER 2019-09-07 08:18 | Outpatient (CLI) | payer MEDICAID | END 2019-09-07 23:59 | disposition home or self-care (01) | LOC: WOUND 08:18 | PROVIDERS: ATTEND Family Medicine | DX: L98.422 Non-pressure chronic ulcer of back with fat layer exposed (principal); I87.311 Chronic venous hypertension (idiopathic) with ulcer of right lower extremity; L97.811 Non-pressure chronic ulcer of other part of right lower leg limited to breakdown of skin; L59.8 Other specified disorders of the skin and subcutaneous tissue related to radiation; C44.519 Basal cell carcinoma of skin of other part of trunk; S80.812D Abrasion, left lower leg, subsequent encounter; G47.33 Obstructive sleep apnea (adult) (pediatric); I11.0 Hypertensive heart disease with heart failure; I50.9 Heart failure, unspecified; E66.01 Morbid (severe) obesity due to excess calories; Z68.43 Body mass index [BMI] 50.0-59.9, adult; Z86.14 Personal history of Methicillin resistant Staphylococcus aureus infection; Z86.718 Personal history of other venous thrombosis and embolism; Z86.711 Personal history of pulmonary embolism; X58.XXXD Exposure to other specified factors, subsequent encounter; Y84.2 Radiological procedure and radiotherapy as the cause of abnormal reaction of the patient, or of later complication, without mention of misadventure at the time of the procedure | CPT/HCPCS: 99214 ==

== ENCOUNTER → 2019-09-14 | Outpatient (CLI) | payer MEDICAID | END | disposition home or self-care (01) | LOC: WOUND 07:47 | PROVIDERS: ATTEND Family Medicine | DX: L98.422 Non-pressure chronic ulcer of back with fat layer exposed (principal); L59.8 Other specified disorders of the skin and subcutaneous tissue related to radiation; C44.519 Basal cell carcinoma of skin of other part of trunk; I87.311 Chronic venous hypertension (idiopathic) with ulcer of right lower extremity; L97.811 Non-pressure chronic ulcer of other part of right lower leg limited to breakdown of skin; S80.812D Abrasion, left lower leg, subsequent encounter; M87.88 Other osteonecrosis, other site; I11.0 Hypertensive heart disease with heart failure; I50.9 Heart failure, unspecified; E66.01 Morbid (severe) obesity due to excess calories; G47.33 Obstructive sleep apnea (adult) (pediatric); Z68.43 Body mass index [BMI] 50.0-59.9, adult; Z86.14 Personal history of Methicillin resistant Staphylococcus aureus infection; Z86.718 Personal history of other venous thrombosis and embolism; Z86.711 Personal history of pulmonary embolism; Y84.2 Radiological procedure and radiotherapy as the cause of abnormal reaction of the patient, or of later complication, without mention of misadventure at the time of the procedure; X58.XXXD Exposure to other specified factors, subsequent encounter | CPT/HCPCS: 99214 ==

== ENCOUNTER → 2019-10-01 | Outpatient (CLI) | payer MEDICAID | END | disposition home or self-care (01) | LOC: WOUND 07:46 | PROVIDERS: ATTEND Internal Medicine | DX: L98.422 Non-pressure chronic ulcer of back with fat layer exposed (principal); L59.8 Other specified disorders of the skin and subcutaneous tissue related to radiation; I87.311 Chronic venous hypertension (idiopathic) with ulcer of right lower extremity; L97.811 Non-pressure chronic ulcer of other part of right lower leg limited to breakdown of skin; S80.812D Abrasion, left lower leg, subsequent encounter; C44.519 Basal cell carcinoma of skin of other part of trunk; M87.88 Other osteonecrosis, other site; I11.0 Hypertensive heart disease with heart failure; I50.9 Heart failure, unspecified; E66.01 Morbid (severe) obesity due to excess calories; G47.33 Obstructive sleep apnea (adult) (pediatric); Z68.43 Body mass index [BMI] 50.0-59.9, adult; Z86.14 Personal history of Methicillin resistant Staphylococcus aureus infection; Z86.718 Personal history of other venous thrombosis and embolism; Z86.711 Personal history of pulmonary embolism; Z85.828 Personal history of other malignant neoplasm of skin; Y84.2 Radiological procedure and radiotherapy as the cause of abnormal reaction of the patient, or of later complication, without mention of misadventure at the time of the procedure; X58.XXXD Exposure to other specified factors, subsequent encounter | CPT/HCPCS: 99214 ==

== ENCOUNTER → 2019-10-03 | Outpatient (CLI) | payer MEDICAID | END | disposition home or self-care (01) | LOC: WOUND 11:41 | PROVIDERS: ATTEND Internal Medicine | DX: L98.422 Non-pressure chronic ulcer of back with fat layer exposed (principal); L59.8 Other specified disorders of the skin and subcutaneous tissue related to radiation; I87.311 Chronic venous hypertension (idiopathic) with ulcer of right lower extremity; L97.811 Non-pressure chronic ulcer of other part of right lower leg limited to breakdown of skin; S80.812D Abrasion, left lower leg, subsequent encounter; C44.519 Basal cell carcinoma of skin of other part of trunk; M87.88 Other osteonecrosis, other site; I11.0 Hypertensive heart disease with heart failure; I50.9 Heart failure, unspecified; E66.01 Morbid (severe) obesity due to excess calories; G47.33 Obstructive sleep apnea (adult) (pediatric); Z68.43 Body mass index [BMI] 50.0-59.9, adult; Z86.14 Personal history of Methicillin resistant Staphylococcus aureus infection; Z86.718 Personal history of other venous thrombosis and embolism; Z86.711 Personal history of pulmonary embolism; Z85.828 Personal history of other malignant neoplasm of skin; X58.XXXD Exposure to other specified factors, subsequent encounter; Y84.2 Radiological procedure and radiotherapy as the cause of abnormal reaction of the patient, or of later complication, without mention of misadventure at the time of the procedure | CPT/HCPCS: 99213 ==

== ENCOUNTER → 2019-10-05 | Outpatient (CLI) | payer MEDICAID | END | disposition home or self-care (01) | LOC: WOUND 13:00 | PROVIDERS: ATTEND Internal Medicine | DX: T81.31XA Disruption of external operation (surgical) wound, not elsewhere classified, initial encounter (principal); L98.422 Non-pressure chronic ulcer of back with fat layer exposed; L59.8 Other specified disorders of the skin and subcutaneous tissue related to radiation; I87.311 Chronic venous hypertension (idiopathic) with ulcer of right lower extremity; L97.811 Non-pressure chronic ulcer of other part of right lower leg limited to breakdown of skin; S80.812D Abrasion, left lower leg, subsequent encounter; C44.519 Basal cell carcinoma of skin of other part of trunk; M87.88 Other osteonecrosis, other site; I11.0 Hypertensive heart disease with heart failure; I50.9 Heart failure, unspecified; E66.01 Morbid (severe) obesity due to excess calories; G47.33 Obstructive sleep apnea (adult) (pediatric); Z68.43 Body mass index [BMI] 50.0-59.9, adult; Z86.14 Personal history of Methicillin resistant Staphylococcus aureus infection; Z86.718 Personal history of other venous thrombosis and embolism; Z86.711 Personal history of pulmonary embolism; Z85.828 Personal history of other malignant neoplasm of skin; X58.XXXD Exposure to other specified factors, subsequent encounter; Y84.2 Radiological procedure and radiotherapy as the cause of abnormal reaction of the patient, or of later complication, without mention of misadventure at the time of the procedure; Y83.8 Other surgical procedures as the cause of abnormal reaction of the patient, or of later complication, without mention of misadventure at the time of the procedure; Y92.89 Other specified places as the place of occurrence of the external cause | CPT/HCPCS: 11043; 11046 ==

== ENCOUNTER 2019-10-10 13:11 | Outpatient (CLI) | payer MEDICAID | END 2019-10-10 23:59 | disposition home or self-care (01) | LOC: WOUND 13:11 | PROVIDERS: ATTEND Internal Medicine | DX: T81.31XD Disruption of external operation (surgical) wound, not elsewhere classified, subsequent encounter (principal); L98.422 Non-pressure chronic ulcer of back with fat layer exposed; L59.8 Other specified disorders of the skin and subcutaneous tissue related to radiation; I87.311 Chronic venous hypertension (idiopathic) with ulcer of right lower extremity; L97.811 Non-pressure chronic ulcer of other part of right lower leg limited to breakdown of skin; T81.31XA Disruption of external operation (surgical) wound, not elsewhere classified, initial encounter; S80.812D Abrasion, left lower leg, subsequent encounter; C44.519 Basal cell carcinoma of skin of other part of trunk; M87.88 Other osteonecrosis, other site; I11.0 Hypertensive heart disease with heart failure; I50.9 Heart failure, unspecified; E66.01 Morbid (severe) obesity due to excess calories; G47.33 Obstructive sleep apnea (adult) (pediatric); Z68.43 Body mass index [BMI] 50.0-59.9, adult; Z86.14 Personal history of Methicillin resistant Staphylococcus aureus infection; Z86.718 Personal history of other venous thrombosis and embolism; Z86.711 Personal history of pulmonary embolism; Z85.828 Personal history of other malignant neoplasm of skin; X58.XXXD Exposure to other specified factors, subsequent encounter; Y84.2 Radiological procedure and radiotherapy as the cause of abnormal reaction of the patient, or of later complication, without mention of misadventure at the time of the procedure; Y83.8 Other surgical procedures as the cause of abnormal reaction of the patient, or of later complication, without mention of misadventure at the time of the procedure | CPT/HCPCS: 99214 ==

== ENCOUNTER 2019-10-12 07:48 | Outpatient (CLI) | payer MEDICAID | END 2019-10-12 23:59 | disposition home or self-care (01) | LOC: WOUND 07:48 | PROVIDERS: ATTEND Family Medicine | DX: T81.31XD Disruption of external operation (surgical) wound, not elsewhere classified, subsequent encounter (principal); L98.422 Non-pressure chronic ulcer of back with fat layer exposed; L59.8 Other specified disorders of the skin and subcutaneous tissue related to radiation; I87.311 Chronic venous hypertension (idiopathic) with ulcer of right lower extremity; L97.811 Non-pressure chronic ulcer of other part of right lower leg limited to breakdown of skin; S80.812D Abrasion, left lower leg, subsequent encounter; C44.519 Basal cell carcinoma of skin of other part of trunk; M87.88 Other osteonecrosis, other site; I11.0 Hypertensive heart disease with heart failure; I50.9 Heart failure, unspecified; E66.01 Morbid (severe) obesity due to excess calories; G47.33 Obstructive sleep apnea (adult) (pediatric); Z68.43 Body mass index [BMI] 50.0-59.9, adult; Z86.14 Personal history of Methicillin resistant Staphylococcus aureus infection; Z86.718 Personal history of other venous thrombosis and embolism; Z86.711 Personal history of pulmonary embolism; Z85.828 Personal history of other malignant neoplasm of skin; X58.XXXD Exposure to other specified factors, subsequent encounter; Y83.8 Other surgical procedures as the cause of abnormal reaction of the patient, or of later complication, without mention of misadventure at the time of the procedure | CPT/HCPCS: 11043; 11046; 97606 ==

== ENCOUNTER 2019-10-15 12:48 | Outpatient (CLI) | payer MEDICAID | END 2019-10-15 23:59 | disposition home or self-care (01) | LOC: WOUND 12:48 | PROVIDERS: ATTEND Internal Medicine | DX: T81.31XD Disruption of external operation (surgical) wound, not elsewhere classified, subsequent encounter (principal); I87.311 Chronic venous hypertension (idiopathic) with ulcer of right lower extremity; L97.811 Non-pressure chronic ulcer of other part of right lower leg limited to breakdown of skin; L98.422 Non-pressure chronic ulcer of back with fat layer exposed; L59.8 Other specified disorders of the skin and subcutaneous tissue related to radiation; C44.519 Basal cell carcinoma of skin of other part of trunk; M87.88 Other osteonecrosis, other site; I11.0 Hypertensive heart disease with heart failure; I50.9 Heart failure, unspecified; E66.01 Morbid (severe) obesity due to excess calories; G47.33 Obstructive sleep apnea (adult) (pediatric); Z68.43 Body mass index [BMI] 50.0-59.9, adult; Z86.14 Personal history of Methicillin resistant Staphylococcus aureus infection; Z86.718 Personal history of other venous thrombosis and embolism; Z86.711 Personal history of pulmonary embolism; Z85.828 Personal history of other malignant neoplasm of skin; Y84.2 Radiological procedure and radiotherapy as the cause of abnormal reaction of the patient, or of later complication, without mention of misadventure at the time of the procedure; Y83.8 Other surgical procedures as the cause of abnormal reaction of the patient, or of later complication, without mention of misadventure at the time of the procedure | CPT/HCPCS: 97606 ==

== ENCOUNTER → 2019-10-17 | Outpatient (CLI) | payer MEDICAID | END | disposition home or self-care (01) | LOC: WOUND 10:11 | PROVIDERS: ATTEND Internal Medicine | DX: T81.31XD Disruption of external operation (surgical) wound, not elsewhere classified, subsequent encounter (principal); L98.422 Non-pressure chronic ulcer of back with fat layer exposed; L59.8 Other specified disorders of the skin and subcutaneous tissue related to radiation; I87.311 Chronic venous hypertension (idiopathic) with ulcer of right lower extremity; L97.811 Non-pressure chronic ulcer of other part of right lower leg limited to breakdown of skin; C44.519 Basal cell carcinoma of skin of other part of trunk; M87.88 Other osteonecrosis, other site; I11.0 Hypertensive heart disease with heart failure; I50.9 Heart failure, unspecified; E66.01 Morbid (severe) obesity due to excess calories; G47.33 Obstructive sleep apnea (adult) (pediatric); Z68.43 Body mass index [BMI] 50.0-59.9, adult; Z86.14 Personal history of Methicillin resistant Staphylococcus aureus infection; Z86.718 Personal history of other venous thrombosis and embolism; Z86.711 Personal history of pulmonary embolism; Z85.828 Personal history of other malignant neoplasm of skin; Y84.2 Radiological procedure and radiotherapy as the cause of abnormal reaction of the patient, or of later complication, without mention of misadventure at the time of the procedure; Y83.8 Other surgical procedures as the cause of abnormal reaction of the patient, or of later complication, without mention of misadventure at the time of the procedure | CPT/HCPCS: 97606 ==

== ENCOUNTER 2019-10-22 08:05 | Outpatient (CLI) | payer MEDICAID | END 2019-10-22 23:59 | disposition home or self-care (01) | LOC: WOUND 08:05 | PROVIDERS: ATTEND Internal Medicine | DX: T81.31XD Disruption of external operation (surgical) wound, not elsewhere classified, subsequent encounter (principal); L59.8 Other specified disorders of the skin and subcutaneous tissue related to radiation; I87.311 Chronic venous hypertension (idiopathic) with ulcer of right lower extremity; L97.811 Non-pressure chronic ulcer of other part of right lower leg limited to breakdown of skin; C44.519 Basal cell carcinoma of skin of other part of trunk; M87.88 Other osteonecrosis, other site; I11.0 Hypertensive heart disease with heart failure; I50.9 Heart failure, unspecified; E66.01 Morbid (severe) obesity due to excess calories; G47.33 Obstructive sleep apnea (adult) (pediatric); Z68.43 Body mass index [BMI] 50.0-59.9, adult; Z86.14 Personal history of Methicillin resistant Staphylococcus aureus infection; Z86.718 Personal history of other venous thrombosis and embolism; Z86.711 Personal history of pulmonary embolism; Z85.828 Personal history of other malignant neoplasm of skin; Y84.2 Radiological procedure and radiotherapy as the cause of abnormal reaction of the patient, or of later complication, without mention of misadventure at the time of the procedure; Y83.8 Other surgical procedures as the cause of abnormal reaction of the patient, or of later complication, without mention of misadventure at the time of the procedure | CPT/HCPCS: 97606 ==

== ENCOUNTER 2019-10-24 10:12 | Outpatient (CLI) | payer MEDICAID | END 2019-10-24 23:59 | disposition home or self-care (01) | LOC: WOUND 10:12 | PROVIDERS: ATTEND Internal Medicine | DX: T81.31XD Disruption of external operation (surgical) wound, not elsewhere classified, subsequent encounter (principal); L59.8 Other specified disorders of the skin and subcutaneous tissue related to radiation; I87.311 Chronic venous hypertension (idiopathic) with ulcer of right lower extremity; L97.811 Non-pressure chronic ulcer of other part of right lower leg limited to breakdown of skin; C44.519 Basal cell carcinoma of skin of other part of trunk; M87.88 Other osteonecrosis, other site; I11.0 Hypertensive heart disease with heart failure; I50.9 Heart failure, unspecified; E66.01 Morbid (severe) obesity due to excess calories; G47.33 Obstructive sleep apnea (adult) (pediatric); Z68.43 Body mass index [BMI] 50.0-59.9, adult; Z86.14 Personal history of Methicillin resistant Staphylococcus aureus infection; Z86.718 Personal history of other venous thrombosis and embolism; Z86.711 Personal history of pulmonary embolism; Z85.828 Personal history of other malignant neoplasm of skin; Y84.2 Radiological procedure and radiotherapy as the cause of abnormal reaction of the patient, or of later complication, without mention of misadventure at the time of the procedure; Y83.8 Other surgical procedures as the cause of abnormal reaction of the patient, or of later complication, without mention of misadventure at the time of the procedure | CPT/HCPCS: 97606 ==

== ENCOUNTER 2019-10-25 12:16 | Outpatient (CLI) | payer MEDICAID | END 2019-10-25 23:59 | disposition home or self-care (01) | LOC: WOUND 12:16 | PROVIDERS: ATTEND Internal Medicine Cardiovascular Disease | DX: T81.31XD Disruption of external operation (surgical) wound, not elsewhere classified, subsequent encounter (principal); L59.8 Other specified disorders of the skin and subcutaneous tissue related to radiation; I87.311 Chronic venous hypertension (idiopathic) with ulcer of right lower extremity; L97.811 Non-pressure chronic ulcer of other part of right lower leg limited to breakdown of skin; C44.519 Basal cell carcinoma of skin of other part of trunk; M87.88 Other osteonecrosis, other site; I11.0 Hypertensive heart disease with heart failure; I50.9 Heart failure, unspecified; E66.01 Morbid (severe) obesity due to excess calories; G47.33 Obstructive sleep apnea (adult) (pediatric); Z68.43 Body mass index [BMI] 50.0-59.9, adult; Z86.14 Personal history of Methicillin resistant Staphylococcus aureus infection; Z86.718 Personal history of other venous thrombosis and embolism; Z86.711 Personal history of pulmonary embolism; Z85.828 Personal history of other malignant neoplasm of skin; Y84.2 Radiological procedure and radiotherapy as the cause of abnormal reaction of the patient, or of later complication, without mention of misadventure at the time of the procedure; Y83.8 Other surgical procedures as the cause of abnormal reaction of the patient, or of later complication, without mention of misadventure at the time of the procedure | CPT/HCPCS: 97606 ==

== ENCOUNTER 2019-10-26 07:34 | Outpatient (CLI) | payer MEDICAID | END 2019-10-26 23:59 | disposition home or self-care (01) | LOC: WOUND 07:34 | PROVIDERS: ATTEND Family Medicine | DX: T81.31XD Disruption of external operation (surgical) wound, not elsewhere classified, subsequent encounter (principal); L59.8 Other specified disorders of the skin and subcutaneous tissue related to radiation; I87.311 Chronic venous hypertension (idiopathic) with ulcer of right lower extremity; L97.811 Non-pressure chronic ulcer of other part of right lower leg limited to breakdown of skin; C44.519 Basal cell carcinoma of skin of other part of trunk; M87.88 Other osteonecrosis, other site; I11.0 Hypertensive heart disease with heart failure; E66.01 Morbid (severe) obesity due to excess calories; G47.33 Obstructive sleep apnea (adult) (pediatric); Z68.43 Body mass index [BMI] 50.0-59.9, adult; Z86.14 Personal history of Methicillin resistant Staphylococcus aureus infection; Z86.718 Personal history of other venous thrombosis and embolism; Z86.711 Personal history of pulmonary embolism; Z85.828 Personal history of other malignant neoplasm of skin; Y84.2 Radiological procedure and radiotherapy as the cause of abnormal reaction of the patient, or of later complication, without mention of misadventure at the time of the procedure; Y83.8 Other surgical procedures as the cause of abnormal reaction of the patient, or of later complication, without mention of misadventure at the time of the procedure | CPT/HCPCS: 11043; 11046; 97606 ==

== ENCOUNTER → 2019-10-29 | Outpatient (CLI) | payer MEDICAID | END | disposition home or self-care (01) | LOC: WOUND 08:00 | PROVIDERS: ATTEND Internal Medicine | DX: T81.31XD Disruption of external operation (surgical) wound, not elsewhere classified, subsequent encounter (principal); L59.8 Other specified disorders of the skin and subcutaneous tissue related to radiation; I87.311 Chronic venous hypertension (idiopathic) with ulcer of right lower extremity; L97.811 Non-pressure chronic ulcer of other part of right lower leg limited to breakdown of skin; C44.519 Basal cell carcinoma of skin of other part of trunk; M87.88 Other osteonecrosis, other site; I11.0 Hypertensive heart disease with heart failure; I50.9 Heart failure, unspecified; E66.01 Morbid (severe) obesity due to excess calories; G47.33 Obstructive sleep apnea (adult) (pediatric); Z68.43 Body mass index [BMI] 50.0-59.9, adult; Z86.14 Personal history of Methicillin resistant Staphylococcus aureus infection; Z86.718 Personal history of other venous thrombosis and embolism; Z86.711 Personal history of pulmonary embolism; Z85.828 Personal history of other malignant neoplasm of skin; Y84.2 Radiological procedure and radiotherapy as the cause of abnormal reaction of the patient, or of later complication, without mention of misadventure at the time of the procedure; Y83.8 Other surgical procedures as the cause of abnormal reaction of the patient, or of later complication, without mention of misadventure at the time of the procedure | CPT/HCPCS: 97606 ==

== ENCOUNTER → 2019-10-31 | Outpatient (CLI) | payer MEDICAID | END | disposition home or self-care (01) | LOC: WOUND 08:36 | PROVIDERS: ATTEND Internal Medicine | DX: T81.31XD Disruption of external operation (surgical) wound, not elsewhere classified, subsequent encounter (principal); L59.8 Other specified disorders of the skin and subcutaneous tissue related to radiation; M87.88 Other osteonecrosis, other site; I87.311 Chronic venous hypertension (idiopathic) with ulcer of right lower extremity; L97.811 Non-pressure chronic ulcer of other part of right lower leg limited to breakdown of skin; C44.519 Basal cell carcinoma of skin of other part of trunk; I11.0 Hypertensive heart disease with heart failure; I50.9 Heart failure, unspecified; E66.01 Morbid (severe) obesity due to excess calories; G47.33 Obstructive sleep apnea (adult) (pediatric); Z68.43 Body mass index [BMI] 50.0-59.9, adult; Z86.14 Personal history of Methicillin resistant Staphylococcus aureus infection; Z86.718 Personal history of other venous thrombosis and embolism; Z86.711 Personal history of pulmonary embolism; Z85.828 Personal history of other malignant neoplasm of skin; Y84.2 Radiological procedure and radiotherapy as the cause of abnormal reaction of the patient, or of later complication, without mention of misadventure at the time of the procedure; Y83.8 Other surgical procedures as the cause of abnormal reaction of the patient, or of later complication, without mention of misadventure at the time of the procedure | CPT/HCPCS: 97606 ==

== ENCOUNTER → 2019-11-02 | Outpatient (CLI) | payer MEDICAID | END | disposition home or self-care (01) | LOC: WOUND 07:56 | PROVIDERS: ATTEND Surgery | DX: T81.31XD Disruption of external operation (surgical) wound, not elsewhere classified, subsequent encounter (principal); L59.8 Other specified disorders of the skin and subcutaneous tissue related to radiation; I87.311 Chronic venous hypertension (idiopathic) with ulcer of right lower extremity; L97.811 Non-pressure chronic ulcer of other part of right lower leg limited to breakdown of skin; I11.0 Hypertensive heart disease with heart failure; I50.9 Heart failure, unspecified; C44.519 Basal cell carcinoma of skin of other part of trunk; E66.01 Morbid (severe) obesity due to excess calories; G47.33 Obstructive sleep apnea (adult) (pediatric); M87.88 Other osteonecrosis, other site; Z68.43 Body mass index [BMI] 50.0-59.9, adult; Z86.14 Personal history of Methicillin resistant Staphylococcus aureus infection; Z85.828 Personal history of other malignant neoplasm of skin; Z86.711 Personal history of pulmonary embolism; Z86.718 Personal history of other venous thrombosis and embolism; Y83.8 Other surgical procedures as the cause of abnormal reaction of the patient, or of later complication, without mention of misadventure at the time of the procedure | CPT/HCPCS: 97606 ==

== ENCOUNTER → 2019-11-05 | Outpatient (CLI) | payer MEDICAID | END | disposition home or self-care (01) | LOC: WOUND 08:02 | PROVIDERS: ATTEND Internal Medicine | DX: T81.31XD Disruption of external operation (surgical) wound, not elsewhere classified, subsequent encounter (principal); L59.8 Other specified disorders of the skin and subcutaneous tissue related to radiation; I87.311 Chronic venous hypertension (idiopathic) with ulcer of right lower extremity; L97.811 Non-pressure chronic ulcer of other part of right lower leg limited to breakdown of skin; C44.519 Basal cell carcinoma of skin of other part of trunk; I11.0 Hypertensive heart disease with heart failure; I50.9 Heart failure, unspecified; E66.01 Morbid (severe) obesity due to excess calories; G47.33 Obstructive sleep apnea (adult) (pediatric); M87.9 Osteonecrosis, unspecified; Z68.43 Body mass index [BMI] 50.0-59.9, adult; Z86.14 Personal history of Methicillin resistant Staphylococcus aureus infection; Z85.828 Personal history of other malignant neoplasm of skin; Z86.718 Personal history of other venous thrombosis and embolism; Z86.711 Personal history of pulmonary embolism; Y83.8 Other surgical procedures as the cause of abnormal reaction of the patient, or of later complication, without mention of misadventure at the time of the procedure | CPT/HCPCS: 97606 ==

== ENCOUNTER → 2019-11-07 | Outpatient (CLI) | payer MEDICAID | END | disposition home or self-care (01) | LOC: WOUND 07:46 | PROVIDERS: ATTEND Internal Medicine | DX: T81.31XD Disruption of external operation (surgical) wound, not elsewhere classified, subsequent encounter (principal); L59.8 Other specified disorders of the skin and subcutaneous tissue related to radiation; I87.311 Chronic venous hypertension (idiopathic) with ulcer of right lower extremity; L97.811 Non-pressure chronic ulcer of other part of right lower leg limited to breakdown of skin; I11.0 Hypertensive heart disease with heart failure; I50.9 Heart failure, unspecified; C44.519 Basal cell carcinoma of skin of other part of trunk; E66.01 Morbid (severe) obesity due to excess calories; G47.33 Obstructive sleep apnea (adult) (pediatric); M87.88 Other osteonecrosis, other site; Z68.43 Body mass index [BMI] 50.0-59.9, adult; Z86.14 Personal history of Methicillin resistant Staphylococcus aureus infection; Z85.828 Personal history of other malignant neoplasm of skin; Z86.711 Personal history of pulmonary embolism; Z86.718 Personal history of other venous thrombosis and embolism; Y83.8 Other surgical procedures as the cause of abnormal reaction of the patient, or of later complication, without mention of misadventure at the time of the procedure; Y84.2 Radiological procedure and radiotherapy as the cause of abnormal reaction of the patient, or of later complication, without mention of misadventure at the time of the procedure | CPT/HCPCS: 97606 ==

== ENCOUNTER → 2019-11-09 | Outpatient (CLI) | payer MEDICAID | END | disposition home or self-care (01) | LOC: WOUND 07:57 | PROVIDERS: ATTEND Internal Medicine | DX: T81.31XD Disruption of external operation (surgical) wound, not elsewhere classified, subsequent encounter (principal); L59.8 Other specified disorders of the skin and subcutaneous tissue related to radiation; L97.811 Non-pressure chronic ulcer of other part of right lower leg limited to breakdown of skin; I10 Essential (primary) hypertension; C44.519 Basal cell carcinoma of skin of other part of trunk; E66.01 Morbid (severe) obesity due to excess calories; G47.33 Obstructive sleep apnea (adult) (pediatric); M87.88 Other osteonecrosis, other site; Z68.43 Body mass index [BMI] 50.0-59.9, adult; Z86.14 Personal history of Methicillin resistant Staphylococcus aureus infection; Z85.828 Personal history of other malignant neoplasm of skin; Z86.711 Personal history of pulmonary embolism; Z86.718 Personal history of other venous thrombosis and embolism; Y83.8 Other surgical procedures as the cause of abnormal reaction of the patient, or of later complication, without mention of misadventure at the time of the procedure; Y84.2 Radiological procedure and radiotherapy as the cause of abnormal reaction of the patient, or of later complication, without mention of misadventure at the time of the procedure | CPT/HCPCS: 97606 ==

== ENCOUNTER 2019-11-12 09:54 | Outpatient (CLI) | payer MEDICAID | END 2019-11-12 23:59 | disposition home or self-care (01) | LOC: WOUND 09:54 | PROVIDERS: ATTEND Internal Medicine | DX: T81.31XD Disruption of external operation (surgical) wound, not elsewhere classified, subsequent encounter (principal); L59.8 Other specified disorders of the skin and subcutaneous tissue related to radiation; L98.425 Non-pressure chronic ulcer of back with muscle involvement without evidence of necrosis; I87.311 Chronic venous hypertension (idiopathic) with ulcer of right lower extremity; L97.811 Non-pressure chronic ulcer of other part of right lower leg limited to breakdown of skin; I11.0 Hypertensive heart disease with heart failure; I50.9 Heart failure, unspecified; C44.519 Basal cell carcinoma of skin of other part of trunk; E66.01 Morbid (severe) obesity due to excess calories; G47.33 Obstructive sleep apnea (adult) (pediatric); M87.88 Other osteonecrosis, other site; Z68.43 Body mass index [BMI] 50.0-59.9, adult; Z86.14 Personal history of Methicillin resistant Staphylococcus aureus infection; Z85.828 Personal history of other malignant neoplasm of skin; Z86.711 Personal history of pulmonary embolism; Z86.718 Personal history of other venous thrombosis and embolism; Y83.8 Other surgical procedures as the cause of abnormal reaction of the patient, or of later complication, without mention of misadventure at the time of the procedure; Y84.2 Radiological procedure and radiotherapy as the cause of abnormal reaction of the patient, or of later complication, without mention of misadventure at the time of the procedure | CPT/HCPCS: 97597; 97598 ==

== ENCOUNTER → 2019-11-13 | Outpatient (CLI) | payer MEDICAID | END | disposition home or self-care (01) | LOC: WOUND 10:22 | PROVIDERS: ATTEND Internal Medicine Cardiovascular Disease | DX: T81.31XD Disruption of external operation (surgical) wound, not elsewhere classified, subsequent encounter (principal); L59.8 Other specified disorders of the skin and subcutaneous tissue related to radiation; L98.425 Non-pressure chronic ulcer of back with muscle involvement without evidence of necrosis; I87.311 Chronic venous hypertension (idiopathic) with ulcer of right lower extremity; L97.811 Non-pressure chronic ulcer of other part of right lower leg limited to breakdown of skin; I11.0 Hypertensive heart disease with heart failure; I50.9 Heart failure, unspecified; C44.519 Basal cell carcinoma of skin of other part of trunk; E66.01 Morbid (severe) obesity due to excess calories; G47.33 Obstructive sleep apnea (adult) (pediatric); M87.88 Other osteonecrosis, other site; Z68.43 Body mass index [BMI] 50.0-59.9, adult; Z86.14 Personal history of Methicillin resistant Staphylococcus aureus infection; Z85.828 Personal history of other malignant neoplasm of skin; Z86.711 Personal history of pulmonary embolism; Z86.718 Personal history of other venous thrombosis and embolism; Y83.8 Other surgical procedures as the cause of abnormal reaction of the patient, or of later complication, without mention of misadventure at the time of the procedure; Y84.2 Radiological procedure and radiotherapy as the cause of abnormal reaction of the patient, or of later complication, without mention of misadventure at the time of the procedure | CPT/HCPCS: 97606 ==

== ENCOUNTER 2019-11-15 08:27 | Outpatient (CLI) | payer MEDICAID | END 2019-11-15 23:59 | disposition home or self-care (01) | LOC: WOUND 08:27 | PROVIDERS: ATTEND Internal Medicine Cardiovascular Disease | DX: T81.31XD Disruption of external operation (surgical) wound, not elsewhere classified, subsequent encounter (principal); L59.8 Other specified disorders of the skin and subcutaneous tissue related to radiation; L98.425 Non-pressure chronic ulcer of back with muscle involvement without evidence of necrosis; I87.311 Chronic venous hypertension (idiopathic) with ulcer of right lower extremity; L97.811 Non-pressure chronic ulcer of other part of right lower leg limited to breakdown of skin; I11.0 Hypertensive heart disease with heart failure; I50.9 Heart failure, unspecified; C44.519 Basal cell carcinoma of skin of other part of trunk; E66.01 Morbid (severe) obesity due to excess calories; G47.33 Obstructive sleep apnea (adult) (pediatric); M87.88 Other osteonecrosis, other site; Z68.43 Body mass index [BMI] 50.0-59.9, adult; Z86.14 Personal history of Methicillin resistant Staphylococcus aureus infection; Z85.828 Personal history of other malignant neoplasm of skin; Z86.711 Personal history of pulmonary embolism; Z86.718 Personal history of other venous thrombosis and embolism; Y83.8 Other surgical procedures as the cause of abnormal reaction of the patient, or of later complication, without mention of misadventure at the time of the procedure; Y84.2 Radiological procedure and radiotherapy as the cause of abnormal reaction of the patient, or of later complication, without mention of misadventure at the time of the procedure | CPT/HCPCS: 97606 ==

== ENCOUNTER 2019-11-19 08:24 | Outpatient (CLI) | payer MEDICAID | END 2019-11-19 23:59 | disposition home or self-care (01) | LOC: WOUND 08:24 | PROVIDERS: ATTEND Internal Medicine | DX: T81.31XD Disruption of external operation (surgical) wound, not elsewhere classified, subsequent encounter (principal); L59.8 Other specified disorders of the skin and subcutaneous tissue related to radiation; L98.425 Non-pressure chronic ulcer of back with muscle involvement without evidence of necrosis; I87.311 Chronic venous hypertension (idiopathic) with ulcer of right lower extremity; L97.811 Non-pressure chronic ulcer of other part of right lower leg limited to breakdown of skin; I11.0 Hypertensive heart disease with heart failure; I50.9 Heart failure, unspecified; C44.519 Basal cell carcinoma of skin of other part of trunk; E66.01 Morbid (severe) obesity due to excess calories; G47.33 Obstructive sleep apnea (adult) (pediatric); M87.88 Other osteonecrosis, other site; Z68.43 Body mass index [BMI] 50.0-59.9, adult; Z86.14 Personal history of Methicillin resistant Staphylococcus aureus infection; Z85.828 Personal history of other malignant neoplasm of skin; Z86.711 Personal history of pulmonary embolism; Z86.718 Personal history of other venous thrombosis and embolism; Y83.8 Other surgical procedures as the cause of abnormal reaction of the patient, or of later complication, without mention of misadventure at the time of the procedure; Y84.2 Radiological procedure and radiotherapy as the cause of abnormal reaction of the patient, or of later complication, without mention of misadventure at the time of the procedure | CPT/HCPCS: 97597; 97598; 97606 ==

== ENCOUNTER → 2019-11-21 | Outpatient (CLI) | payer MEDICAID | END | disposition home or self-care (01) | LOC: WOUND 07:56 | PROVIDERS: ATTEND Internal Medicine | DX: T81.31XD Disruption of external operation (surgical) wound, not elsewhere classified, subsequent encounter (principal); L59.8 Other specified disorders of the skin and subcutaneous tissue related to radiation; L98.425 Non-pressure chronic ulcer of back with muscle involvement without evidence of necrosis; I87.311 Chronic venous hypertension (idiopathic) with ulcer of right lower extremity; L97.811 Non-pressure chronic ulcer of other part of right lower leg limited to breakdown of skin; I11.0 Hypertensive heart disease with heart failure; I50.9 Heart failure, unspecified; C44.519 Basal cell carcinoma of skin of other part of trunk; E66.01 Morbid (severe) obesity due to excess calories; G47.33 Obstructive sleep apnea (adult) (pediatric); M87.88 Other osteonecrosis, other site; Z68.43 Body mass index [BMI] 50.0-59.9, adult; Z86.14 Personal history of Methicillin resistant Staphylococcus aureus infection; Z85.828 Personal history of other malignant neoplasm of skin; Z86.711 Personal history of pulmonary embolism; Z86.718 Personal history of other venous thrombosis and embolism; Y83.8 Other surgical procedures as the cause of abnormal reaction of the patient, or of later complication, without mention of misadventure at the time of the procedure; Y84.2 Radiological procedure and radiotherapy as the cause of abnormal reaction of the patient, or of later complication, without mention of misadventure at the time of the procedure | CPT/HCPCS: 97606 ==

== ENCOUNTER 2019-11-23 11:00 | Outpatient (CLI) | payer MEDICAID | END 2019-11-23 23:59 | disposition home or self-care (01) | LOC: WOUND 11:00 | PROVIDERS: ATTEND Family Medicine | DX: T81.31XD Disruption of external operation (surgical) wound, not elsewhere classified, subsequent encounter (principal); L59.8 Other specified disorders of the skin and subcutaneous tissue related to radiation; I11.0 Hypertensive heart disease with heart failure; I50.9 Heart failure, unspecified; C44.519 Basal cell carcinoma of skin of other part of trunk; E66.01 Morbid (severe) obesity due to excess calories; G47.33 Obstructive sleep apnea (adult) (pediatric); M87.88 Other osteonecrosis, other site; Z68.43 Body mass index [BMI] 50.0-59.9, adult; Z86.14 Personal history of Methicillin resistant Staphylococcus aureus infection; Z85.828 Personal history of other malignant neoplasm of skin; Z86.711 Personal history of pulmonary embolism; Z86.718 Personal history of other venous thrombosis and embolism; Y83.8 Other surgical procedures as the cause of abnormal reaction of the patient, or of later complication, without mention of misadventure at the time of the procedure; Y84.2 Radiological procedure and radiotherapy as the cause of abnormal reaction of the patient, or of later complication, without mention of misadventure at the time of the procedure | CPT/HCPCS: 97606 ==

== ENCOUNTER → 2019-11-26 | Outpatient (CLI) | payer MEDICAID | END | disposition home or self-care (01) | LOC: WOUND 10:03 | PROVIDERS: ATTEND Internal Medicine | DX: T81.31XD Disruption of external operation (surgical) wound, not elsewhere classified, subsequent encounter (principal); L59.8 Other specified disorders of the skin and subcutaneous tissue related to radiation; L98.425 Non-pressure chronic ulcer of back with muscle involvement without evidence of necrosis; I87.311 Chronic venous hypertension (idiopathic) with ulcer of right lower extremity; L97.811 Non-pressure chronic ulcer of other part of right lower leg limited to breakdown of skin; I11.0 Hypertensive heart disease with heart failure; I50.9 Heart failure, unspecified; C44.519 Basal cell carcinoma of skin of other part of trunk; E66.01 Morbid (severe) obesity due to excess calories; G47.33 Obstructive sleep apnea (adult) (pediatric); M87.88 Other osteonecrosis, other site; Z68.43 Body mass index [BMI] 50.0-59.9, adult; Z86.14 Personal history of Methicillin resistant Staphylococcus aureus infection; Z85.828 Personal history of other malignant neoplasm of skin; Z86.711 Personal history of pulmonary embolism; Z86.718 Personal history of other venous thrombosis and embolism; Y83.8 Other surgical procedures as the cause of abnormal reaction of the patient, or of later complication, without mention of misadventure at the time of the procedure; Y84.2 Radiological procedure and radiotherapy as the cause of abnormal reaction of the patient, or of later complication, without mention of misadventure at the time of the procedure | CPT/HCPCS: 97606 ==

== ENCOUNTER → 2019-11-28 | Outpatient (CLI) | payer MEDICAID | END | disposition home or self-care (01) | LOC: WOUND 07:45 | PROVIDERS: ATTEND Internal Medicine | DX: T81.31XD Disruption of external operation (surgical) wound, not elsewhere classified, subsequent encounter (principal); L59.8 Other specified disorders of the skin and subcutaneous tissue related to radiation; I87.311 Chronic venous hypertension (idiopathic) with ulcer of right lower extremity; L97.811 Non-pressure chronic ulcer of other part of right lower leg limited to breakdown of skin; I11.0 Hypertensive heart disease with heart failure; I50.9 Heart failure, unspecified; C44.519 Basal cell carcinoma of skin of other part of trunk; E66.01 Morbid (severe) obesity due to excess calories; G47.33 Obstructive sleep apnea (adult) (pediatric); M87.88 Other osteonecrosis, other site; Z68.43 Body mass index [BMI] 50.0-59.9, adult; Z86.14 Personal history of Methicillin resistant Staphylococcus aureus infection; Z85.828 Personal history of other malignant neoplasm of skin; Z86.711 Personal history of pulmonary embolism; Z86.718 Personal history of other venous thrombosis and embolism; Y83.8 Other surgical procedures as the cause of abnormal reaction of the patient, or of later complication, without mention of misadventure at the time of the procedure; Y84.2 Radiological procedure and radiotherapy as the cause of abnormal reaction of the patient, or of later complication, without mention of misadventure at the time of the procedure | CPT/HCPCS: 97606 ==

== ENCOUNTER → 2019-11-30 | Outpatient (CLI) | payer MEDICAID | END | disposition home or self-care (01) | LOC: WOUND 07:55 | PROVIDERS: ATTEND Family Medicine | DX: T81.31XD Disruption of external operation (surgical) wound, not elsewhere classified, subsequent encounter (principal); L59.8 Other specified disorders of the skin and subcutaneous tissue related to radiation; I11.0 Hypertensive heart disease with heart failure; I50.9 Heart failure, unspecified; C44.519 Basal cell carcinoma of skin of other part of trunk; E66.9 Obesity, unspecified; G47.33 Obstructive sleep apnea (adult) (pediatric); M87.88 Other osteonecrosis, other site; Z68.43 Body mass index [BMI] 50.0-59.9, adult; Z86.14 Personal history of Methicillin resistant Staphylococcus aureus infection; Z85.828 Personal history of other malignant neoplasm of skin; Z86.711 Personal history of pulmonary embolism; Z86.718 Personal history of other venous thrombosis and embolism; Y83.8 Other surgical procedures as the cause of abnormal reaction of the patient, or of later complication, without mention of misadventure at the time of the procedure; Y84.2 Radiological procedure and radiotherapy as the cause of abnormal reaction of the patient, or of later complication, without mention of misadventure at the time of the procedure | CPT/HCPCS: 97606 ==

== ENCOUNTER → 2019-12-03 | Outpatient (CLI) | payer MEDICAID | END | disposition home or self-care (01) | LOC: WOUND 07:40 | PROVIDERS: ATTEND Internal Medicine Cardiovascular Disease | DX: T81.31XD Disruption of external operation (surgical) wound, not elsewhere classified, subsequent encounter (principal); I87.311 Chronic venous hypertension (idiopathic) with ulcer of right lower extremity; L97.811 Non-pressure chronic ulcer of other part of right lower leg limited to breakdown of skin; L59.8 Other specified disorders of the skin and subcutaneous tissue related to radiation; I11.0 Hypertensive heart disease with heart failure; I50.9 Heart failure, unspecified; C44.519 Basal cell carcinoma of skin of other part of trunk; G47.33 Obstructive sleep apnea (adult) (pediatric); M87.88 Other osteonecrosis, other site; E66.01 Morbid (severe) obesity due to excess calories; Z68.43 Body mass index [BMI] 50.0-59.9, adult; Z86.14 Personal history of Methicillin resistant Staphylococcus aureus infection; Z85.828 Personal history of other malignant neoplasm of skin; Z86.711 Personal history of pulmonary embolism; Z86.718 Personal history of other venous thrombosis and embolism; Y83.8 Other surgical procedures as the cause of abnormal reaction of the patient, or of later complication, without mention of misadventure at the time of the procedure; Y84.2 Radiological procedure and radiotherapy as the cause of abnormal reaction of the patient, or of later complication, without mention of misadventure at the time of the procedure | CPT/HCPCS: 97606 ==

== ENCOUNTER → 2019-12-05 | Outpatient (CLI) | payer MEDICAID | END | disposition home or self-care (01) | LOC: WOUND 07:52 | PROVIDERS: ATTEND Family Medicine | DX: T81.31XD Disruption of external operation (surgical) wound, not elsewhere classified, subsequent encounter (principal); I87.311 Chronic venous hypertension (idiopathic) with ulcer of right lower extremity; L97.811 Non-pressure chronic ulcer of other part of right lower leg limited to breakdown of skin; L59.8 Other specified disorders of the skin and subcutaneous tissue related to radiation; I11.0 Hypertensive heart disease with heart failure; I50.9 Heart failure, unspecified; C44.519 Basal cell carcinoma of skin of other part of trunk; G47.33 Obstructive sleep apnea (adult) (pediatric); M87.88 Other osteonecrosis, other site; E66.01 Morbid (severe) obesity due to excess calories; Z68.43 Body mass index [BMI] 50.0-59.9, adult; Z86.14 Personal history of Methicillin resistant Staphylococcus aureus infection; Z85.828 Personal history of other malignant neoplasm of skin; Z86.711 Personal history of pulmonary embolism; Z86.718 Personal history of other venous thrombosis and embolism; Y83.8 Other surgical procedures as the cause of abnormal reaction of the patient, or of later complication, without mention of misadventure at the time of the procedure; Y84.2 Radiological procedure and radiotherapy as the cause of abnormal reaction of the patient, or of later complication, without mention of misadventure at the time of the procedure | CPT/HCPCS: 97606 ==

== ENCOUNTER → 2019-12-07 | Outpatient (CLI) | payer MEDICAID | END | disposition home or self-care (01) | LOC: WOUND 08:02 | PROVIDERS: ATTEND Internal Medicine Cardiovascular Disease | DX: T81.89XD Other complications of procedures, not elsewhere classified, subsequent encounter (principal); I87.311 Chronic venous hypertension (idiopathic) with ulcer of right lower extremity; L97.811 Non-pressure chronic ulcer of other part of right lower leg limited to breakdown of skin; L59.8 Other specified disorders of the skin and subcutaneous tissue related to radiation; I11.0 Hypertensive heart disease with heart failure; I50.9 Heart failure, unspecified; C44.519 Basal cell carcinoma of skin of other part of trunk; G47.33 Obstructive sleep apnea (adult) (pediatric); M87.88 Other osteonecrosis, other site; E66.01 Morbid (severe) obesity due to excess calories; Z68.43 Body mass index [BMI] 50.0-59.9, adult; Z86.14 Personal history of Methicillin resistant Staphylococcus aureus infection; Z85.828 Personal history of other malignant neoplasm of skin; Z86.711 Personal history of pulmonary embolism; Z86.718 Personal history of other venous thrombosis and embolism; Y83.8 Other surgical procedures as the cause of abnormal reaction of the patient, or of later complication, without mention of misadventure at the time of the procedure | CPT/HCPCS: 97606 ==

== ENCOUNTER 2019-12-10 08:23 | Outpatient (CLI) | payer MEDICAID | END 2019-12-10 23:59 | disposition home or self-care (01) | LOC: WOUND 08:23 | PROVIDERS: ATTEND Internal Medicine | DX: T81.31XD Disruption of external operation (surgical) wound, not elsewhere classified, subsequent encounter (principal); I87.311 Chronic venous hypertension (idiopathic) with ulcer of right lower extremity; L97.811 Non-pressure chronic ulcer of other part of right lower leg limited to breakdown of skin; L59.8 Other specified disorders of the skin and subcutaneous tissue related to radiation; I11.0 Hypertensive heart disease with heart failure; I50.9 Heart failure, unspecified; C44.519 Basal cell carcinoma of skin of other part of trunk; G47.33 Obstructive sleep apnea (adult) (pediatric); M87.88 Other osteonecrosis, other site; E66.01 Morbid (severe) obesity due to excess calories; Z68.43 Body mass index [BMI] 50.0-59.9, adult; Z86.14 Personal history of Methicillin resistant Staphylococcus aureus infection; Z85.828 Personal history of other malignant neoplasm of skin; Z86.711 Personal history of pulmonary embolism; Z86.718 Personal history of other venous thrombosis and embolism; Y83.8 Other surgical procedures as the cause of abnormal reaction of the patient, or of later complication, without mention of misadventure at the time of the procedure; Y84.2 Radiological procedure and radiotherapy as the cause of abnormal reaction of the patient, or of later complication, without mention of misadventure at the time of the procedure | CPT/HCPCS: 99214 ==

== ENCOUNTER → 2019-12-12 | Outpatient (CLI) | payer MEDICAID | END | disposition home or self-care (01) | LOC: WOUND 07:48 | PROVIDERS: ATTEND Internal Medicine | DX: T81.31XD Disruption of external operation (surgical) wound, not elsewhere classified, subsequent encounter (principal); I87.311 Chronic venous hypertension (idiopathic) with ulcer of right lower extremity; L97.811 Non-pressure chronic ulcer of other part of right lower leg limited to breakdown of skin; L59.8 Other specified disorders of the skin and subcutaneous tissue related to radiation; I11.0 Hypertensive heart disease with heart failure; I50.9 Heart failure, unspecified; C44.519 Basal cell carcinoma of skin of other part of trunk; G47.33 Obstructive sleep apnea (adult) (pediatric); M87.88 Other osteonecrosis, other site; E66.01 Morbid (severe) obesity due to excess calories; Z68.43 Body mass index [BMI] 50.0-59.9, adult; Z86.14 Personal history of Methicillin resistant Staphylococcus aureus infection; Z85.828 Personal history of other malignant neoplasm of skin; Z86.711 Personal history of pulmonary embolism; Z86.718 Personal history of other venous thrombosis and embolism; Y83.8 Other surgical procedures as the cause of abnormal reaction of the patient, or of later complication, without mention of misadventure at the time of the procedure; Y84.2 Radiological procedure and radiotherapy as the cause of abnormal reaction of the patient, or of later complication, without mention of misadventure at the time of the procedure | CPT/HCPCS: 99214 ==

== ENCOUNTER → 2019-12-17 | Outpatient (CLI) | payer MEDICAID | END | disposition home or self-care (01) | LOC: WOUND 07:41 | PROVIDERS: ATTEND Internal Medicine | DX: T81.31XD Disruption of external operation (surgical) wound, not elsewhere classified, subsequent encounter (principal); I87.311 Chronic venous hypertension (idiopathic) with ulcer of right lower extremity; L97.811 Non-pressure chronic ulcer of other part of right lower leg limited to breakdown of skin; L59.8 Other specified disorders of the skin and subcutaneous tissue related to radiation; I11.0 Hypertensive heart disease with heart failure; I50.9 Heart failure, unspecified; C44.519 Basal cell carcinoma of skin of other part of trunk; G47.33 Obstructive sleep apnea (adult) (pediatric); M87.88 Other osteonecrosis, other site; E66.01 Morbid (severe) obesity due to excess calories; Z68.43 Body mass index [BMI] 50.0-59.9, adult; Z86.14 Personal history of Methicillin resistant Staphylococcus aureus infection; Z85.828 Personal history of other malignant neoplasm of skin; Z86.711 Personal history of pulmonary embolism; Z86.718 Personal history of other venous thrombosis and embolism; Y83.8 Other surgical procedures as the cause of abnormal reaction of the patient, or of later complication, without mention of misadventure at the time of the procedure; Y84.2 Radiological procedure and radiotherapy as the cause of abnormal reaction of the patient, or of later complication, without mention of misadventure at the time of the procedure | CPT/HCPCS: 99213 ==

== ENCOUNTER → 2019-12-21 | Outpatient (CLI) | payer MEDICAID | END | disposition home or self-care (01) | LOC: WOUND 07:51 | PROVIDERS: ATTEND Family Medicine | DX: T81.31XD Disruption of external operation (surgical) wound, not elsewhere classified, subsequent encounter (principal); I87.311 Chronic venous hypertension (idiopathic) with ulcer of right lower extremity; L97.811 Non-pressure chronic ulcer of other part of right lower leg limited to breakdown of skin; L59.8 Other specified disorders of the skin and subcutaneous tissue related to radiation; I11.0 Hypertensive heart disease with heart failure; I50.9 Heart failure, unspecified; C44.519 Basal cell carcinoma of skin of other part of trunk; G47.33 Obstructive sleep apnea (adult) (pediatric); M87.88 Other osteonecrosis, other site; E66.01 Morbid (severe) obesity due to excess calories; Z68.43 Body mass index [BMI] 50.0-59.9, adult; Z86.14 Personal history of Methicillin resistant Staphylococcus aureus infection; Z85.828 Personal history of other malignant neoplasm of skin; Z86.711 Personal history of pulmonary embolism; Z86.718 Personal history of other venous thrombosis and embolism; Y83.8 Other surgical procedures as the cause of abnormal reaction of the patient, or of later complication, without mention of misadventure at the time of the procedure; Y84.2 Radiological procedure and radiotherapy as the cause of abnormal reaction of the patient, or of later complication, without mention of misadventure at the time of the procedure | CPT/HCPCS: 97597; 97598 ==

== ENCOUNTER → 2019-12-25 | Outpatient (CLI) | payer MEDICAID | END | disposition home or self-care (01) | LOC: WOUND 07:42 | PROVIDERS: ATTEND Nurse Practitioner Family | DX: T81.31XD Disruption of external operation (surgical) wound, not elsewhere classified, subsequent encounter (principal); I87.311 Chronic venous hypertension (idiopathic) with ulcer of right lower extremity; L97.811 Non-pressure chronic ulcer of other part of right lower leg limited to breakdown of skin; L59.8 Other specified disorders of the skin and subcutaneous tissue related to radiation; I11.0 Hypertensive heart disease with heart failure; I50.9 Heart failure, unspecified; C44.519 Basal cell carcinoma of skin of other part of trunk; G47.33 Obstructive sleep apnea (adult) (pediatric); M87.88 Other osteonecrosis, other site; E66.01 Morbid (severe) obesity due to excess calories; Z68.43 Body mass index [BMI] 50.0-59.9, adult; Z86.14 Personal history of Methicillin resistant Staphylococcus aureus infection; Z85.828 Personal history of other malignant neoplasm of skin; Z86.711 Personal history of pulmonary embolism; Z86.718 Personal history of other venous thrombosis and embolism; Y83.8 Other surgical procedures as the cause of abnormal reaction of the patient, or of later complication, without mention of misadventure at the time of the procedure | CPT/HCPCS: 99213 ==

== ENCOUNTER 2019-12-28 07:50 | Outpatient (CLI) | payer MEDICAID | END 2019-12-28 23:59 | disposition home or self-care (01) | LOC: WOUND 07:50 | PROVIDERS: ATTEND Family Medicine | DX: T81.31XD Disruption of external operation (surgical) wound, not elsewhere classified, subsequent encounter (principal); L59.8 Other specified disorders of the skin and subcutaneous tissue related to radiation; I87.311 Chronic venous hypertension (idiopathic) with ulcer of right lower extremity; L97.811 Non-pressure chronic ulcer of other part of right lower leg limited to breakdown of skin; C44.519 Basal cell carcinoma of skin of other part of trunk; I11.0 Hypertensive heart disease with heart failure; I50.9 Heart failure, unspecified; M87.88 Other osteonecrosis, other site; G47.33 Obstructive sleep apnea (adult) (pediatric); E66.01 Morbid (severe) obesity due to excess calories; Z68.43 Body mass index [BMI] 50.0-59.9, adult; Z86.14 Personal history of Methicillin resistant Staphylococcus aureus infection; Z85.828 Personal history of other malignant neoplasm of skin; Z86.718 Personal history of other venous thrombosis and embolism; Z86.711 Personal history of pulmonary embolism; Y84.2 Radiological procedure and radiotherapy as the cause of abnormal reaction of the patient, or of later complication, without mention of misadventure at the time of the procedure; Y83.8 Other surgical procedures as the cause of abnormal reaction of the patient, or of later complication, without mention of misadventure at the time of the procedure | CPT/HCPCS: 97597; 97598 ==

== ENCOUNTER → 2020-01-01 | Outpatient (CLI) | payer MEDICAID | END | disposition home or self-care (01) | LOC: WOUND 07:54 | PROVIDERS: ATTEND Nurse Practitioner Family | DX: T81.31XD Disruption of external operation (surgical) wound, not elsewhere classified, subsequent encounter (principal); I87.311 Chronic venous hypertension (idiopathic) with ulcer of right lower extremity; L97.811 Non-pressure chronic ulcer of other part of right lower leg limited to breakdown of skin; L59.8 Other specified disorders of the skin and subcutaneous tissue related to radiation; I11.0 Hypertensive heart disease with heart failure; I50.9 Heart failure, unspecified; C44.519 Basal cell carcinoma of skin of other part of trunk; G47.33 Obstructive sleep apnea (adult) (pediatric); M87.88 Other osteonecrosis, other site; E66.01 Morbid (severe) obesity due to excess calories; Z68.43 Body mass index [BMI] 50.0-59.9, adult; Z86.14 Personal history of Methicillin resistant Staphylococcus aureus infection; Z85.828 Personal history of other malignant neoplasm of skin; Z86.711 Personal history of pulmonary embolism; Z86.718 Personal history of other venous thrombosis and embolism; Y83.8 Other surgical procedures as the cause of abnormal reaction of the patient, or of later complication, without mention of misadventure at the time of the procedure; Y84.2 Radiological procedure and radiotherapy as the cause of abnormal reaction of the patient, or of later complication, without mention of misadventure at the time of the procedure | CPT/HCPCS: 99214 ==

== ENCOUNTER → 2020-01-04 | Outpatient (CLI) | payer MEDICAID | END | disposition home or self-care (01) | LOC: WOUND 10:36 | PROVIDERS: ATTEND Family Medicine | DX: T81.31XD Disruption of external operation (surgical) wound, not elsewhere classified, subsequent encounter (principal); L59.8 Other specified disorders of the skin and subcutaneous tissue related to radiation; I87.311 Chronic venous hypertension (idiopathic) with ulcer of right lower extremity; L97.811 Non-pressure chronic ulcer of other part of right lower leg limited to breakdown of skin; C44.519 Basal cell carcinoma of skin of other part of trunk; I11.0 Hypertensive heart disease with heart failure; I50.9 Heart failure, unspecified; M87.88 Other osteonecrosis, other site; G47.33 Obstructive sleep apnea (adult) (pediatric); E66.01 Morbid (severe) obesity due to excess calories; Z68.43 Body mass index [BMI] 50.0-59.9, adult; Z86.14 Personal history of Methicillin resistant Staphylococcus aureus infection; Z85.828 Personal history of other malignant neoplasm of skin; Z86.718 Personal history of other venous thrombosis and embolism; Z86.711 Personal history of pulmonary embolism; Y84.2 Radiological procedure and radiotherapy as the cause of abnormal reaction of the patient, or of later complication, without mention of misadventure at the time of the procedure; Y83.8 Other surgical procedures as the cause of abnormal reaction of the patient, or of later complication, without mention of misadventure at the time of the procedure | CPT/HCPCS: 97597; 97598 ==

== ENCOUNTER → 2020-01-08 | Outpatient (CLI) | payer MEDICAID | END | disposition home or self-care (01) | LOC: WOUND 07:46 | PROVIDERS: ATTEND Internal Medicine Cardiovascular Disease | DX: T81.31XD Disruption of external operation (surgical) wound, not elsewhere classified, subsequent encounter (principal); L59.8 Other specified disorders of the skin and subcutaneous tissue related to radiation; I87.311 Chronic venous hypertension (idiopathic) with ulcer of right lower extremity; L97.811 Non-pressure chronic ulcer of other part of right lower leg limited to breakdown of skin; C44.519 Basal cell carcinoma of skin of other part of trunk; I11.0 Hypertensive heart disease with heart failure; I50.9 Heart failure, unspecified; M87.88 Other osteonecrosis, other site; G47.33 Obstructive sleep apnea (adult) (pediatric); E66.01 Morbid (severe) obesity due to excess calories; Z68.43 Body mass index [BMI] 50.0-59.9, adult; Z86.14 Personal history of Methicillin resistant Staphylococcus aureus infection; Z85.828 Personal history of other malignant neoplasm of skin; Z86.718 Personal history of other venous thrombosis and embolism; Z86.711 Personal history of pulmonary embolism; Y84.2 Radiological procedure and radiotherapy as the cause of abnormal reaction of the patient, or of later complication, without mention of misadventure at the time of the procedure; Y83.8 Other surgical procedures as the cause of abnormal reaction of the patient, or of later complication, without mention of misadventure at the time of the procedure | CPT/HCPCS: 99213 ==

== ENCOUNTER → 2020-01-11 | Outpatient (CLI) | payer MEDICAID | END | disposition home or self-care (01) | LOC: WOUND 07:49 | PROVIDERS: ATTEND Family Medicine | DX: T81.31XD Disruption of external operation (surgical) wound, not elsewhere classified, subsequent encounter (principal); I87.311 Chronic venous hypertension (idiopathic) with ulcer of right lower extremity; L97.811 Non-pressure chronic ulcer of other part of right lower leg limited to breakdown of skin; L59.8 Other specified disorders of the skin and subcutaneous tissue related to radiation; C44.519 Basal cell carcinoma of skin of other part of trunk; I11.0 Hypertensive heart disease with heart failure; I50.9 Heart failure, unspecified; E66.01 Morbid (severe) obesity due to excess calories; G47.33 Obstructive sleep apnea (adult) (pediatric); Z68.43 Body mass index [BMI] 50.0-59.9, adult; Z86.14 Personal history of Methicillin resistant Staphylococcus aureus infection; Z86.718 Personal history of other venous thrombosis and embolism; Z86.711 Personal history of pulmonary embolism; Y84.2 Radiological procedure and radiotherapy as the cause of abnormal reaction of the patient, or of later complication, without mention of misadventure at the time of the procedure; Y83.8 Other surgical procedures as the cause of abnormal reaction of the patient, or of later complication, without mention of misadventure at the time of the procedure | CPT/HCPCS: 97597; 97598 ==

== ENCOUNTER → 2020-01-15 | Outpatient (CLI) | payer MEDICAID | END | disposition home or self-care (01) | LOC: WOUND 07:51 | PROVIDERS: ATTEND Internal Medicine Cardiovascular Disease | DX: T81.31XD Disruption of external operation (surgical) wound, not elsewhere classified, subsequent encounter (principal); I87.311 Chronic venous hypertension (idiopathic) with ulcer of right lower extremity; L97.811 Non-pressure chronic ulcer of other part of right lower leg limited to breakdown of skin; L59.8 Other specified disorders of the skin and subcutaneous tissue related to radiation; C44.519 Basal cell carcinoma of skin of other part of trunk; E66.01 Morbid (severe) obesity due to excess calories; G47.33 Obstructive sleep apnea (adult) (pediatric); Z68.43 Body mass index [BMI] 50.0-59.9, adult; Z86.14 Personal history of Methicillin resistant Staphylococcus aureus infection; Z85.828 Personal history of other malignant neoplasm of skin; Z86.718 Personal history of other venous thrombosis and embolism; Z86.711 Personal history of pulmonary embolism; Y84.2 Radiological procedure and radiotherapy as the cause of abnormal reaction of the patient, or of later complication, without mention of misadventure at the time of the procedure; Y83.8 Other surgical procedures as the cause of abnormal reaction of the patient, or of later complication, without mention of misadventure at the time of the procedure | CPT/HCPCS: 99213 ==

== ENCOUNTER → 2020-01-18 | Outpatient (CLI) | payer MEDICAID | END | disposition home or self-care (01) | LOC: WOUND 10:06 | PROVIDERS: ATTEND Family Medicine | DX: T81.31XD Disruption of external operation (surgical) wound, not elsewhere classified, subsequent encounter (principal); I87.311 Chronic venous hypertension (idiopathic) with ulcer of right lower extremity; L97.811 Non-pressure chronic ulcer of other part of right lower leg limited to breakdown of skin; L59.8 Other specified disorders of the skin and subcutaneous tissue related to radiation; C44.519 Basal cell carcinoma of skin of other part of trunk; G47.33 Obstructive sleep apnea (adult) (pediatric); I11.0 Hypertensive heart disease with heart failure; I50.9 Heart failure, unspecified; M87.88 Other osteonecrosis, other site; E66.01 Morbid (severe) obesity due to excess calories; Z68.43 Body mass index [BMI] 50.0-59.9, adult; Z86.14 Personal history of Methicillin resistant Staphylococcus aureus infection; Z85.828 Personal history of other malignant neoplasm of skin; Z86.718 Personal history of other venous thrombosis and embolism; Z86.711 Personal history of pulmonary embolism; Y84.2 Radiological procedure and radiotherapy as the cause of abnormal reaction of the patient, or of later complication, without mention of misadventure at the time of the procedure; Y83.8 Other surgical procedures as the cause of abnormal reaction of the patient, or of later complication, without mention of misadventure at the time of the procedure | CPT/HCPCS: 97597; 97598 ==

== ENCOUNTER 2020-01-22 08:00 | Outpatient (CLI) | payer MEDICAID | END 2020-01-22 23:59 | disposition home or self-care (01) | LOC: WOUND 08:00 | PROVIDERS: ATTEND Internal Medicine Cardiovascular Disease | DX: T81.31XD Disruption of external operation (surgical) wound, not elsewhere classified, subsequent encounter (principal); I87.311 Chronic venous hypertension (idiopathic) with ulcer of right lower extremity; L97.811 Non-pressure chronic ulcer of other part of right lower leg limited to breakdown of skin; L59.8 Other specified disorders of the skin and subcutaneous tissue related to radiation; C44.519 Basal cell carcinoma of skin of other part of trunk; G47.33 Obstructive sleep apnea (adult) (pediatric); I11.0 Hypertensive heart disease with heart failure; I50.9 Heart failure, unspecified; M87.88 Other osteonecrosis, other site; E66.01 Morbid (severe) obesity due to excess calories; Z68.43 Body mass index [BMI] 50.0-59.9, adult; Z86.14 Personal history of Methicillin resistant Staphylococcus aureus infection; Z85.828 Personal history of other malignant neoplasm of skin; Z86.718 Personal history of other venous thrombosis and embolism; Z86.711 Personal history of pulmonary embolism; Y84.2 Radiological procedure and radiotherapy as the cause of abnormal reaction of the patient, or of later complication, without mention of misadventure at the time of the procedure; Y83.8 Other surgical procedures as the cause of abnormal reaction of the patient, or of later complication, without mention of misadventure at the time of the procedure | CPT/HCPCS: 99213 ==

== ENCOUNTER → 2020-01-25 | Outpatient (CLI) | payer MEDICAID | END | disposition home or self-care (01) | LOC: WOUND 07:54 | PROVIDERS: ATTEND Family Medicine | DX: T81.31XD Disruption of external operation (surgical) wound, not elsewhere classified, subsequent encounter (principal); I87.311 Chronic venous hypertension (idiopathic) with ulcer of right lower extremity; L97.811 Non-pressure chronic ulcer of other part of right lower leg limited to breakdown of skin; L59.8 Other specified disorders of the skin and subcutaneous tissue related to radiation; C44.519 Basal cell carcinoma of skin of other part of trunk; G47.33 Obstructive sleep apnea (adult) (pediatric); I11.0 Hypertensive heart disease with heart failure; I50.9 Heart failure, unspecified; M87.88 Other osteonecrosis, other site; E66.01 Morbid (severe) obesity due to excess calories; Z68.43 Body mass index [BMI] 50.0-59.9, adult; Z86.14 Personal history of Methicillin resistant Staphylococcus aureus infection; Z85.828 Personal history of other malignant neoplasm of skin; Z86.718 Personal history of other venous thrombosis and embolism; Z86.711 Personal history of pulmonary embolism; Y84.2 Radiological procedure and radiotherapy as the cause of abnormal reaction of the patient, or of later complication, without mention of misadventure at the time of the procedure; Y83.8 Other surgical procedures as the cause of abnormal reaction of the patient, or of later complication, without mention of misadventure at the time of the procedure | CPT/HCPCS: 97597; 97598 ==

== ENCOUNTER → 2020-01-29 | Outpatient (CLI) | payer MEDICAID | END | disposition home or self-care (01) | LOC: WOUND 08:04 | PROVIDERS: ATTEND Internal Medicine Cardiovascular Disease | DX: T81.31XD Disruption of external operation (surgical) wound, not elsewhere classified, subsequent encounter (principal); I87.311 Chronic venous hypertension (idiopathic) with ulcer of right lower extremity; L97.811 Non-pressure chronic ulcer of other part of right lower leg limited to breakdown of skin; L59.8 Other specified disorders of the skin and subcutaneous tissue related to radiation; C44.519 Basal cell carcinoma of skin of other part of trunk; G47.33 Obstructive sleep apnea (adult) (pediatric); I11.0 Hypertensive heart disease with heart failure; I50.9 Heart failure, unspecified; M87.88 Other osteonecrosis, other site; E66.01 Morbid (severe) obesity due to excess calories; Z68.43 Body mass index [BMI] 50.0-59.9, adult; Z86.14 Personal history of Methicillin resistant Staphylococcus aureus infection; Z85.828 Personal history of other malignant neoplasm of skin; Z86.718 Personal history of other venous thrombosis and embolism; Z86.711 Personal history of pulmonary embolism; Y84.2 Radiological procedure and radiotherapy as the cause of abnormal reaction of the patient, or of later complication, without mention of misadventure at the time of the procedure; Y83.8 Other surgical procedures as the cause of abnormal reaction of the patient, or of later complication, without mention of misadventure at the time of the procedure | CPT/HCPCS: 99212 ==

== ENCOUNTER → 2020-02-01 | Outpatient (CLI) | payer MEDICAID | END | disposition home or self-care (01) | LOC: WOUND 07:45 | PROVIDERS: ATTEND Family Medicine | DX: T81.31XD Disruption of external operation (surgical) wound, not elsewhere classified, subsequent encounter (principal); L59.8 Other specified disorders of the skin and subcutaneous tissue related to radiation; M87.88 Other osteonecrosis, other site; C44.519 Basal cell carcinoma of skin of other part of trunk; I87.311 Chronic venous hypertension (idiopathic) with ulcer of right lower extremity; L97.811 Non-pressure chronic ulcer of other part of right lower leg limited to breakdown of skin; I11.0 Hypertensive heart disease with heart failure; I50.9 Heart failure, unspecified; E66.01 Morbid (severe) obesity due to excess calories; G47.33 Obstructive sleep apnea (adult) (pediatric); Z86.14 Personal history of Methicillin resistant Staphylococcus aureus infection; Z86.711 Personal history of pulmonary embolism; Z68.43 Body mass index [BMI] 50.0-59.9, adult; Y84.2 Radiological procedure and radiotherapy as the cause of abnormal reaction of the patient, or of later complication, without mention of misadventure at the time of the procedure; Y83.8 Other surgical procedures as the cause of abnormal reaction of the patient, or of later complication, without mention of misadventure at the time of the procedure | CPT/HCPCS: 97597; 97598 ==

== ENCOUNTER → 2020-02-05 | Outpatient (CLI) | payer MEDICAID | END | disposition home or self-care (01) | LOC: WOUND 07:59 | PROVIDERS: ATTEND Internal Medicine Cardiovascular Disease | DX: T81.31XD Disruption of external operation (surgical) wound, not elsewhere classified, subsequent encounter (principal); L59.8 Other specified disorders of the skin and subcutaneous tissue related to radiation; M87.88 Other osteonecrosis, other site; C44.519 Basal cell carcinoma of skin of other part of trunk; I87.311 Chronic venous hypertension (idiopathic) with ulcer of right lower extremity; L97.811 Non-pressure chronic ulcer of other part of right lower leg limited to breakdown of skin; I11.0 Hypertensive heart disease with heart failure; I50.9 Heart failure, unspecified; E66.01 Morbid (severe) obesity due to excess calories; G47.33 Obstructive sleep apnea (adult) (pediatric); Z86.14 Personal history of Methicillin resistant Staphylococcus aureus infection; Z86.711 Personal history of pulmonary embolism; Z68.43 Body mass index [BMI] 50.0-59.9, adult; Y84.2 Radiological procedure and radiotherapy as the cause of abnormal reaction of the patient, or of later complication, without mention of misadventure at the time of the procedure; Y83.8 Other surgical procedures as the cause of abnormal reaction of the patient, or of later complication, without mention of misadventure at the time of the procedure | CPT/HCPCS: 99213 ==

== ENCOUNTER → 2020-02-08 | Outpatient (CLI) | payer MEDICAID | END | disposition home or self-care (01) | LOC: WOUND 07:44 | PROVIDERS: ATTEND Family Medicine | DX: T81.31XD Disruption of external operation (surgical) wound, not elsewhere classified, subsequent encounter (principal); C44.519 Basal cell carcinoma of skin of other part of trunk; L59.8 Other specified disorders of the skin and subcutaneous tissue related to radiation; I87.311 Chronic venous hypertension (idiopathic) with ulcer of right lower extremity; L97.811 Non-pressure chronic ulcer of other part of right lower leg limited to breakdown of skin; I11.0 Hypertensive heart disease with heart failure; I50.9 Heart failure, unspecified; G47.33 Obstructive sleep apnea (adult) (pediatric); E66.01 Morbid (severe) obesity due to excess calories; Z68.43 Body mass index [BMI] 50.0-59.9, adult; Z86.14 Personal history of Methicillin resistant Staphylococcus aureus infection; Z85.828 Personal history of other malignant neoplasm of skin; Y83.8 Other surgical procedures as the cause of abnormal reaction of the patient, or of later complication, without mention of misadventure at the time of the procedure; Y84.2 Radiological procedure and radiotherapy as the cause of abnormal reaction of the patient, or of later complication, without mention of misadventure at the time of the procedure | CPT/HCPCS: 97597; 97598 ==

== ENCOUNTER 2020-02-12 08:01 | Outpatient (CLI) | payer MEDICAID | END 2020-02-12 23:59 | disposition home or self-care (01) | LOC: WOUND 08:01 | PROVIDERS: ATTEND Internal Medicine Cardiovascular Disease | DX: T81.31XD Disruption of external operation (surgical) wound, not elsewhere classified, subsequent encounter (principal); C44.519 Basal cell carcinoma of skin of other part of trunk; L59.8 Other specified disorders of the skin and subcutaneous tissue related to radiation; I87.311 Chronic venous hypertension (idiopathic) with ulcer of right lower extremity; L97.811 Non-pressure chronic ulcer of other part of right lower leg limited to breakdown of skin; I11.0 Hypertensive heart disease with heart failure; I50.9 Heart failure, unspecified; G47.33 Obstructive sleep apnea (adult) (pediatric); E66.01 Morbid (severe) obesity due to excess calories; Z68.43 Body mass index [BMI] 50.0-59.9, adult; Z86.14 Personal history of Methicillin resistant Staphylococcus aureus infection; Z85.828 Personal history of other malignant neoplasm of skin; Y83.8 Other surgical procedures as the cause of abnormal reaction of the patient, or of later complication, without mention of misadventure at the time of the procedure; Y84.2 Radiological procedure and radiotherapy as the cause of abnormal reaction of the patient, or of later complication, without mention of misadventure at the time of the procedure | CPT/HCPCS: 99213 ==

== ENCOUNTER → 2020-02-15 | Outpatient (CLI) | payer MEDICAID | END | disposition home or self-care (01) | LOC: WOUND 12:47 | PROVIDERS: ATTEND Family Medicine | DX: T81.31XD Disruption of external operation (surgical) wound, not elsewhere classified, subsequent encounter (principal); C44.519 Basal cell carcinoma of skin of other part of trunk; L59.8 Other specified disorders of the skin and subcutaneous tissue related to radiation; I87.313 Chronic venous hypertension (idiopathic) with ulcer of bilateral lower extremity; L97.822 Non-pressure chronic ulcer of other part of left lower leg with fat layer exposed; L97.811 Non-pressure chronic ulcer of other part of right lower leg limited to breakdown of skin; I11.0 Hypertensive heart disease with heart failure; I50.9 Heart failure, unspecified; G47.33 Obstructive sleep apnea (adult) (pediatric); E66.01 Morbid (severe) obesity due to excess calories; Z68.43 Body mass index [BMI] 50.0-59.9, adult; Z86.14 Personal history of Methicillin resistant Staphylococcus aureus infection; Z85.828 Personal history of other malignant neoplasm of skin; Y83.8 Other surgical procedures as the cause of abnormal reaction of the patient, or of later complication, without mention of misadventure at the time of the procedure; Y84.2 Radiological procedure and radiotherapy as the cause of abnormal reaction of the patient, or of later complication, without mention of misadventure at the time of the procedure | CPT/HCPCS: 97597; 97598 ==

== ENCOUNTER → 2020-02-18 | Outpatient (CLI) | payer MEDICAID | END | disposition home or self-care (01) | LOC: WOUND 07:45 | PROVIDERS: ATTEND Internal Medicine | DX: T81.31XD Disruption of external operation (surgical) wound, not elsewhere classified, subsequent encounter (principal); C44.519 Basal cell carcinoma of skin of other part of trunk; L59.8 Other specified disorders of the skin and subcutaneous tissue related to radiation; I87.311 Chronic venous hypertension (idiopathic) with ulcer of right lower extremity; L97.811 Non-pressure chronic ulcer of other part of right lower leg limited to breakdown of skin; I11.0 Hypertensive heart disease with heart failure; I50.9 Heart failure, unspecified; G47.33 Obstructive sleep apnea (adult) (pediatric); E66.01 Morbid (severe) obesity due to excess calories; Z68.43 Body mass index [BMI] 50.0-59.9, adult; Z86.14 Personal history of Methicillin resistant Staphylococcus aureus infection; Z85.828 Personal history of other malignant neoplasm of skin; Y83.8 Other surgical procedures as the cause of abnormal reaction of the patient, or of later complication, without mention of misadventure at the time of the procedure; Y84.2 Radiological procedure and radiotherapy as the cause of abnormal reaction of the patient, or of later complication, without mention of misadventure at the time of the procedure | CPT/HCPCS: 99215 ==

== ENCOUNTER → 2020-02-22 | Outpatient (CLI) | payer MEDICAID | END | disposition home or self-care (01) | LOC: WOUND 07:53 | PROVIDERS: ATTEND Family Medicine | DX: T81.31XD Disruption of external operation (surgical) wound, not elsewhere classified, subsequent encounter (principal); S81.802D Unspecified open wound, left lower leg, subsequent encounter; I87.311 Chronic venous hypertension (idiopathic) with ulcer of right lower extremity; L97.811 Non-pressure chronic ulcer of other part of right lower leg limited to breakdown of skin; L59.8 Other specified disorders of the skin and subcutaneous tissue related to radiation; C44.519 Basal cell carcinoma of skin of other part of trunk; I11.0 Hypertensive heart disease with heart failure; I50.9 Heart failure, unspecified; E66.01 Morbid (severe) obesity due to excess calories; G47.33 Obstructive sleep apnea (adult) (pediatric); Z68.43 Body mass index [BMI] 50.0-59.9, adult; Z86.14 Personal history of Methicillin resistant Staphylococcus aureus infection; Z86.718 Personal history of other venous thrombosis and embolism; Z86.711 Personal history of pulmonary embolism; X58.XXXD Exposure to other specified factors, subsequent encounter; Y84.2 Radiological procedure and radiotherapy as the cause of abnormal reaction of the patient, or of later complication, without mention of misadventure at the time of the procedure; Y83.8 Other surgical procedures as the cause of abnormal reaction of the patient, or of later complication, without mention of misadventure at the time of the procedure | CPT/HCPCS: 97597; 97598 ==

== ENCOUNTER → 2020-02-26 | Outpatient (CLI) | payer MEDICAID | END | disposition home or self-care (01) | LOC: WOUND 10:02 | PROVIDERS: ATTEND Internal Medicine Cardiovascular Disease | DX: T81.31XD Disruption of external operation (surgical) wound, not elsewhere classified, subsequent encounter (principal); S81.802D Unspecified open wound, left lower leg, subsequent encounter; I87.311 Chronic venous hypertension (idiopathic) with ulcer of right lower extremity; L97.811 Non-pressure chronic ulcer of other part of right lower leg limited to breakdown of skin; L59.8 Other specified disorders of the skin and subcutaneous tissue related to radiation; C44.519 Basal cell carcinoma of skin of other part of trunk; I11.0 Hypertensive heart disease with heart failure; I50.9 Heart failure, unspecified; E66.01 Morbid (severe) obesity due to excess calories; G47.33 Obstructive sleep apnea (adult) (pediatric); Z68.43 Body mass index [BMI] 50.0-59.9, adult; Z86.14 Personal history of Methicillin resistant Staphylococcus aureus infection; Z86.718 Personal history of other venous thrombosis and embolism; Z86.711 Personal history of pulmonary embolism; Z85.828 Personal history of other malignant neoplasm of skin; X58.XXXD Exposure to other specified factors, subsequent encounter; Y84.2 Radiological procedure and radiotherapy as the cause of abnormal reaction of the patient, or of later complication, without mention of misadventure at the time of the procedure; Y83.8 Other surgical procedures as the cause of abnormal reaction of the patient, or of later complication, without mention of misadventure at the time of the procedure | CPT/HCPCS: 99213 ==

== ENCOUNTER → 2020-02-29 | Outpatient (CLI) | payer MEDICAID | END | disposition home or self-care (01) | LOC: WOUND 07:49 | PROVIDERS: ATTEND Family Medicine | DX: T81.31XD Disruption of external operation (surgical) wound, not elsewhere classified, subsequent encounter (principal); S81.802D Unspecified open wound, left lower leg, subsequent encounter; I87.311 Chronic venous hypertension (idiopathic) with ulcer of right lower extremity; L97.811 Non-pressure chronic ulcer of other part of right lower leg limited to breakdown of skin; L59.8 Other specified disorders of the skin and subcutaneous tissue related to radiation; C44.519 Basal cell carcinoma of skin of other part of trunk; I11.0 Hypertensive heart disease with heart failure; I50.9 Heart failure, unspecified; E66.01 Morbid (severe) obesity due to excess calories; G47.33 Obstructive sleep apnea (adult) (pediatric); Z68.43 Body mass index [BMI] 50.0-59.9, adult; Z86.14 Personal history of Methicillin resistant Staphylococcus aureus infection; Z86.718 Personal history of other venous thrombosis and embolism; Z86.711 Personal history of pulmonary embolism; Z85.828 Personal history of other malignant neoplasm of skin; X58.XXXD Exposure to other specified factors, subsequent encounter; Y84.2 Radiological procedure and radiotherapy as the cause of abnormal reaction of the patient, or of later complication, without mention of misadventure at the time of the procedure; Y83.8 Other surgical procedures as the cause of abnormal reaction of the patient, or of later complication, without mention of misadventure at the time of the procedure | CPT/HCPCS: 97597; 97598 ==

== ENCOUNTER → 2020-03-04 | Outpatient (CLI) | payer MEDICAID | END | disposition home or self-care (01) | LOC: WOUND 11:00 | PROVIDERS: ATTEND Internal Medicine Cardiovascular Disease | DX: T81.31XD Disruption of external operation (surgical) wound, not elsewhere classified, subsequent encounter (principal); S81.802D Unspecified open wound, left lower leg, subsequent encounter; I87.311 Chronic venous hypertension (idiopathic) with ulcer of right lower extremity; L97.811 Non-pressure chronic ulcer of other part of right lower leg limited to breakdown of skin; L59.8 Other specified disorders of the skin and subcutaneous tissue related to radiation; C44.519 Basal cell carcinoma of skin of other part of trunk; I11.0 Hypertensive heart disease with heart failure; I50.9 Heart failure, unspecified; E66.01 Morbid (severe) obesity due to excess calories; G47.33 Obstructive sleep apnea (adult) (pediatric); Z68.43 Body mass index [BMI] 50.0-59.9, adult; Z86.14 Personal history of Methicillin resistant Staphylococcus aureus infection; Z86.718 Personal history of other venous thrombosis and embolism; Z86.711 Personal history of pulmonary embolism; Z85.828 Personal history of other malignant neoplasm of skin; X58.XXXD Exposure to other specified factors, subsequent encounter; Y84.2 Radiological procedure and radiotherapy as the cause of abnormal reaction of the patient, or of later complication, without mention of misadventure at the time of the procedure | CPT/HCPCS: 99213 ==

== ENCOUNTER → 2020-03-07 | Outpatient (CLI) | payer MEDICAID | END | disposition home or self-care (01) | LOC: WOUND 07:48 | PROVIDERS: ATTEND Family Medicine | DX: T81.31XD Disruption of external operation (surgical) wound, not elsewhere classified, subsequent encounter (principal); L59.8 Other specified disorders of the skin and subcutaneous tissue related to radiation; C44.519 Basal cell carcinoma of skin of other part of trunk; S81.802D Unspecified open wound, left lower leg, subsequent encounter; I87.301 Chronic venous hypertension (idiopathic) without complications of right lower extremity; I11.0 Hypertensive heart disease with heart failure; I50.9 Heart failure, unspecified; E66.01 Morbid (severe) obesity due to excess calories; G47.33 Obstructive sleep apnea (adult) (pediatric); Z68.43 Body mass index [BMI] 50.0-59.9, adult; Z86.14 Personal history of Methicillin resistant Staphylococcus aureus infection; Z86.718 Personal history of other venous thrombosis and embolism; Z86.711 Personal history of pulmonary embolism; Y83.8 Other surgical procedures as the cause of abnormal reaction of the patient, or of later complication, without mention of misadventure at the time of the procedure; Y84.2 Radiological procedure and radiotherapy as the cause of abnormal reaction of the patient, or of later complication, without mention of misadventure at the time of the procedure | CPT/HCPCS: 29581; 97597; 97598 ==

== ENCOUNTER → 2020-03-11 | Outpatient (CLI) | payer MEDICAID | END | disposition home or self-care (01) | LOC: WOUND 07:50 | PROVIDERS: ATTEND Internal Medicine Cardiovascular Disease | DX: T81.31XD Disruption of external operation (surgical) wound, not elsewhere classified, subsequent encounter (principal); L59.8 Other specified disorders of the skin and subcutaneous tissue related to radiation; M87.88 Other osteonecrosis, other site; C44.519 Basal cell carcinoma of skin of other part of trunk; S81.802D Unspecified open wound, left lower leg, subsequent encounter; I87.301 Chronic venous hypertension (idiopathic) without complications of right lower extremity; I11.0 Hypertensive heart disease with heart failure; I50.9 Heart failure, unspecified; E66.01 Morbid (severe) obesity due to excess calories; G47.33 Obstructive sleep apnea (adult) (pediatric); Z68.43 Body mass index [BMI] 50.0-59.9, adult; Z86.14 Personal history of Methicillin resistant Staphylococcus aureus infection; Z86.718 Personal history of other venous thrombosis and embolism; Z86.711 Personal history of pulmonary embolism; Y83.8 Other surgical procedures as the cause of abnormal reaction of the patient, or of later complication, without mention of misadventure at the time of the procedure; Y84.2 Radiological procedure and radiotherapy as the cause of abnormal reaction of the patient, or of later complication, without mention of misadventure at the time of the procedure; X58.XXXD Exposure to other specified factors, subsequent encounter | CPT/HCPCS: 99213 ==

== ENCOUNTER → 2020-03-14 | Outpatient (CLI) | payer MEDICAID | END | disposition home or self-care (01) | LOC: WOUND 07:45 | PROVIDERS: ATTEND Family Medicine | DX: T81.31XD Disruption of external operation (surgical) wound, not elsewhere classified, subsequent encounter (principal); L59.8 Other specified disorders of the skin and subcutaneous tissue related to radiation; S81.802D Unspecified open wound, left lower leg, subsequent encounter; C44.519 Basal cell carcinoma of skin of other part of trunk; L84 Corns and callosities; I87.301 Chronic venous hypertension (idiopathic) without complications of right lower extremity; I11.0 Hypertensive heart disease with heart failure; I50.9 Heart failure, unspecified; E66.01 Morbid (severe) obesity due to excess calories; G47.33 Obstructive sleep apnea (adult) (pediatric); Z68.43 Body mass index [BMI] 50.0-59.9, adult; Z86.14 Personal history of Methicillin resistant Staphylococcus aureus infection; Z86.718 Personal history of other venous thrombosis and embolism; Z86.711 Personal history of pulmonary embolism; Z85.828 Personal history of other malignant neoplasm of skin; Y84.2 Radiological procedure and radiotherapy as the cause of abnormal reaction of the patient, or of later complication, without mention of misadventure at the time of the procedure; X58.XXXD Exposure to other specified factors, subsequent encounter; Y83.8 Other surgical procedures as the cause of abnormal reaction of the patient, or of later complication, without mention of misadventure at the time of the procedure | CPT/HCPCS: 29581; 97597; 97598 ==

== ENCOUNTER → 2020-03-21 | Outpatient (CLI) | payer MEDICAID | END | disposition home or self-care (01) | LOC: WOUND 07:46 | PROVIDERS: ATTEND Family Medicine | DX: T81.31XD Disruption of external operation (surgical) wound, not elsewhere classified, subsequent encounter (principal); L59.8 Other specified disorders of the skin and subcutaneous tissue related to radiation; S81.802D Unspecified open wound, left lower leg, subsequent encounter; C44.519 Basal cell carcinoma of skin of other part of trunk; I87.301 Chronic venous hypertension (idiopathic) without complications of right lower extremity; I11.0 Hypertensive heart disease with heart failure; I50.9 Heart failure, unspecified; E66.01 Morbid (severe) obesity due to excess calories; Z68.43 Body mass index [BMI] 50.0-59.9, adult; Z86.14 Personal history of Methicillin resistant Staphylococcus aureus infection; Z85.828 Personal history of other malignant neoplasm of skin; Z86.718 Personal history of other venous thrombosis and embolism; Z86.711 Personal history of pulmonary embolism; Y84.2 Radiological procedure and radiotherapy as the cause of abnormal reaction of the patient, or of later complication, without mention of misadventure at the time of the procedure; Y83.8 Other surgical procedures as the cause of abnormal reaction of the patient, or of later complication, without mention of misadventure at the time of the procedure; X58.XXXD Exposure to other specified factors, subsequent encounter | CPT/HCPCS: 97597; 97598 ==

== ENCOUNTER → 2020-03-28 | Outpatient (CLI) | payer MEDICAID | END | disposition home or self-care (01) | LOC: WOUND 07:45 | PROVIDERS: ATTEND Internal Medicine Cardiovascular Disease | DX: T81.31XD Disruption of external operation (surgical) wound, not elsewhere classified, subsequent encounter (principal); L59.8 Other specified disorders of the skin and subcutaneous tissue related to radiation; S81.802D Unspecified open wound, left lower leg, subsequent encounter; I87.311 Chronic venous hypertension (idiopathic) with ulcer of right lower extremity; L97.811 Non-pressure chronic ulcer of other part of right lower leg limited to breakdown of skin; C44.519 Basal cell carcinoma of skin of other part of trunk; I11.0 Hypertensive heart disease with heart failure; I50.9 Heart failure, unspecified; L84 Corns and callosities; G47.33 Obstructive sleep apnea (adult) (pediatric); E66.01 Morbid (severe) obesity due to excess calories; Z68.43 Body mass index [BMI] 50.0-59.9, adult; Z86.14 Personal history of Methicillin resistant Staphylococcus aureus infection; Z85.828 Personal history of other malignant neoplasm of skin; Z86.718 Personal history of other venous thrombosis and embolism; Z86.711 Personal history of pulmonary embolism; Y84.2 Radiological procedure and radiotherapy as the cause of abnormal reaction of the patient, or of later complication, without mention of misadventure at the time of the procedure; Y83.8 Other surgical procedures as the cause of abnormal reaction of the patient, or of later complication, without mention of misadventure at the time of the procedure; X58.XXXD Exposure to other specified factors, subsequent encounter | CPT/HCPCS: 29581 ==

== ENCOUNTER → 2020-04-04 | Outpatient (CLI) | payer MEDICAID | END | disposition home or self-care (01) | LOC: WOUND 10:00 | PROVIDERS: ATTEND Internal Medicine | DX: T81.31XD Disruption of external operation (surgical) wound, not elsewhere classified, subsequent encounter (principal); L59.8 Other specified disorders of the skin and subcutaneous tissue related to radiation; S81.802D Unspecified open wound, left lower leg, subsequent encounter; C44.519 Basal cell carcinoma of skin of other part of trunk; I87.301 Chronic venous hypertension (idiopathic) without complications of right lower extremity; I11.0 Hypertensive heart disease with heart failure; I50.9 Heart failure, unspecified; E66.01 Morbid (severe) obesity due to excess calories; G47.33 Obstructive sleep apnea (adult) (pediatric); Z68.43 Body mass index [BMI] 50.0-59.9, adult; Z86.14 Personal history of Methicillin resistant Staphylococcus aureus infection; Z86.718 Personal history of other venous thrombosis and embolism; Z86.711 Personal history of pulmonary embolism; Y83.8 Other surgical procedures as the cause of abnormal reaction of the patient, or of later complication, without mention of misadventure at the time of the procedure; Y84.2 Radiological procedure and radiotherapy as the cause of abnormal reaction of the patient, or of later complication, without mention of misadventure at the time of the procedure | CPT/HCPCS: 97597; 97598 ==

== ENCOUNTER → 2020-04-14 | Outpatient (CLI) | payer MEDICAID | END | disposition home or self-care (01) | LOC: WOUND 07:57 | PROVIDERS: ATTEND Internal Medicine | DX: T81.31XD Disruption of external operation (surgical) wound, not elsewhere classified, subsequent encounter (principal); L59.8 Other specified disorders of the skin and subcutaneous tissue related to radiation; S81.802D Unspecified open wound, left lower leg, subsequent encounter; C44.519 Basal cell carcinoma of skin of other part of trunk; I87.301 Chronic venous hypertension (idiopathic) without complications of right lower extremity; I11.0 Hypertensive heart disease with heart failure; I50.9 Heart failure, unspecified; E66.01 Morbid (severe) obesity due to excess calories; L84 Corns and callosities; G47.33 Obstructive sleep apnea (adult) (pediatric); Z68.43 Body mass index [BMI] 50.0-59.9, adult; Z86.14 Personal history of Methicillin resistant Staphylococcus aureus infection; Z86.718 Personal history of other venous thrombosis and embolism; Z86.711 Personal history of pulmonary embolism; Z85.828 Personal history of other malignant neoplasm of skin; Y83.8 Other surgical procedures as the cause of abnormal reaction of the patient, or of later complication, without mention of misadventure at the time of the procedure; Y84.2 Radiological procedure and radiotherapy as the cause of abnormal reaction of the patient, or of later complication, without mention of misadventure at the time of the procedure; X58.XXXD Exposure to other specified factors, subsequent encounter | CPT/HCPCS: 29581 ==

== ENCOUNTER → 2020-04-18 | Outpatient (CLI) | payer MEDICAID | END | disposition home or self-care (01) | LOC: WOUND 07:53 | PROVIDERS: ATTEND Internal Medicine | DX: T81.31XD Disruption of external operation (surgical) wound, not elsewhere classified, subsequent encounter (principal); L59.8 Other specified disorders of the skin and subcutaneous tissue related to radiation; S81.802D Unspecified open wound, left lower leg, subsequent encounter; I87.311 Chronic venous hypertension (idiopathic) with ulcer of right lower extremity; L97.811 Non-pressure chronic ulcer of other part of right lower leg limited to breakdown of skin; C44.519 Basal cell carcinoma of skin of other part of trunk; I11.0 Hypertensive heart disease with heart failure; I50.9 Heart failure, unspecified; L84 Corns and callosities; G47.33 Obstructive sleep apnea (adult) (pediatric); E66.01 Morbid (severe) obesity due to excess calories; Z68.43 Body mass index [BMI] 50.0-59.9, adult; Z86.14 Personal history of Methicillin resistant Staphylococcus aureus infection; Z86.718 Personal history of other venous thrombosis and embolism; Z86.711 Personal history of pulmonary embolism; Z85.828 Personal history of other malignant neoplasm of skin; Y83.8 Other surgical procedures as the cause of abnormal reaction of the patient, or of later complication, without mention of misadventure at the time of the procedure | CPT/HCPCS: 97597; 97598 ==

== ENCOUNTER → 2020-04-23 | Outpatient (CLI) | payer MEDICAID | END | disposition home or self-care (01) | LOC: WOUND 13:37 | PROVIDERS: ATTEND Internal Medicine | DX: T81.31XD Disruption of external operation (surgical) wound, not elsewhere classified, subsequent encounter (principal); L59.8 Other specified disorders of the skin and subcutaneous tissue related to radiation; I87.311 Chronic venous hypertension (idiopathic) with ulcer of right lower extremity; L97.811 Non-pressure chronic ulcer of other part of right lower leg limited to breakdown of skin; C44.519 Basal cell carcinoma of skin of other part of trunk; I11.0 Hypertensive heart disease with heart failure; I50.9 Heart failure, unspecified; L84 Corns and callosities; G47.33 Obstructive sleep apnea (adult) (pediatric); E66.01 Morbid (severe) obesity due to excess calories; Z68.43 Body mass index [BMI] 50.0-59.9, adult; Z86.14 Personal history of Methicillin resistant Staphylococcus aureus infection; Z86.718 Personal history of other venous thrombosis and embolism; Z86.711 Personal history of pulmonary embolism; Z85.828 Personal history of other malignant neoplasm of skin; Y83.8 Other surgical procedures as the cause of abnormal reaction of the patient, or of later complication, without mention of misadventure at the time of the procedure; Y84.2 Radiological procedure and radiotherapy as the cause of abnormal reaction of the patient, or of later complication, without mention of misadventure at the time of the procedure | CPT/HCPCS: 97597; 97598 ==

== ENCOUNTER 2020-04-28 13:03 | Outpatient (CLI) | payer MEDICAID | END 2020-04-28 23:59 | disposition home or self-care (01) | LOC: WOUND 13:03 | PROVIDERS: ATTEND Internal Medicine | DX: T81.31XD Disruption of external operation (surgical) wound, not elsewhere classified, subsequent encounter (principal); L59.8 Other specified disorders of the skin and subcutaneous tissue related to radiation; I87.311 Chronic venous hypertension (idiopathic) with ulcer of right lower extremity; L97.811 Non-pressure chronic ulcer of other part of right lower leg limited to breakdown of skin; C44.519 Basal cell carcinoma of skin of other part of trunk; M87.88 Other osteonecrosis, other site; I11.0 Hypertensive heart disease with heart failure; I50.9 Heart failure, unspecified; L84 Corns and callosities; G47.33 Obstructive sleep apnea (adult) (pediatric); E66.01 Morbid (severe) obesity due to excess calories; Z68.43 Body mass index [BMI] 50.0-59.9, adult; Z86.14 Personal history of Methicillin resistant Staphylococcus aureus infection; Z86.718 Personal history of other venous thrombosis and embolism; Z86.711 Personal history of pulmonary embolism; Z85.828 Personal history of other malignant neoplasm of skin; Y83.8 Other surgical procedures as the cause of abnormal reaction of the patient, or of later complication, without mention of misadventure at the time of the procedure; Y84.2 Radiological procedure and radiotherapy as the cause of abnormal reaction of the patient, or of later complication, without mention of misadventure at the time of the procedure | CPT/HCPCS: 97597; 97598 ==

== ENCOUNTER → 2020-05-01 | Outpatient (CLI) | payer MEDICAID | END | disposition home or self-care (01) | LOC: WOUND 07:45 | PROVIDERS: ATTEND Internal Medicine Cardiovascular Disease | DX: T81.31XD Disruption of external operation (surgical) wound, not elsewhere classified, subsequent encounter (principal); L59.8 Other specified disorders of the skin and subcutaneous tissue related to radiation; M87.9 Osteonecrosis, unspecified; I87.311 Chronic venous hypertension (idiopathic) with ulcer of right lower extremity; L97.811 Non-pressure chronic ulcer of other part of right lower leg limited to breakdown of skin; C44.519 Basal cell carcinoma of skin of other part of trunk; I11.0 Hypertensive heart disease with heart failure; I50.9 Heart failure, unspecified; L84 Corns and callosities; G47.33 Obstructive sleep apnea (adult) (pediatric); E66.01 Morbid (severe) obesity due to excess calories; Z68.43 Body mass index [BMI] 50.0-59.9, adult; Z86.14 Personal history of Methicillin resistant Staphylococcus aureus infection; Z86.718 Personal history of other venous thrombosis and embolism; Z86.711 Personal history of pulmonary embolism; Z85.828 Personal history of other malignant neoplasm of skin; Y83.8 Other surgical procedures as the cause of abnormal reaction of the patient, or of later complication, without mention of misadventure at the time of the procedure; Y84.2 Radiological procedure and radiotherapy as the cause of abnormal reaction of the patient, or of later complication, without mention of misadventure at the time of the procedure | CPT/HCPCS: 99214 ==

== ENCOUNTER → 2020-05-12 | Outpatient (CLI) | payer MEDICAID | END | disposition home or self-care (01) | LOC: WOUND 10:04 | PROVIDERS: ATTEND Internal Medicine | DX: T81.31XD Disruption of external operation (surgical) wound, not elsewhere classified, subsequent encounter (principal); I87.311 Chronic venous hypertension (idiopathic) with ulcer of right lower extremity; L97.811 Non-pressure chronic ulcer of other part of right lower leg limited to breakdown of skin; L59.8 Other specified disorders of the skin and subcutaneous tissue related to radiation; M87.9 Osteonecrosis, unspecified; C44.519 Basal cell carcinoma of skin of other part of trunk; I11.0 Hypertensive heart disease with heart failure; I50.9 Heart failure, unspecified; L84 Corns and callosities; G47.33 Obstructive sleep apnea (adult) (pediatric); E66.01 Morbid (severe) obesity due to excess calories; Z68.43 Body mass index [BMI] 50.0-59.9, adult; Z86.14 Personal history of Methicillin resistant Staphylococcus aureus infection; Z86.718 Personal history of other venous thrombosis and embolism; Z86.711 Personal history of pulmonary embolism; Z85.828 Personal history of other malignant neoplasm of skin; Y84.2 Radiological procedure and radiotherapy as the cause of abnormal reaction of the patient, or of later complication, without mention of misadventure at the time of the procedure; Y83.8 Other surgical procedures as the cause of abnormal reaction of the patient, or of later complication, without mention of misadventure at the time of the procedure | CPT/HCPCS: 97597; 97598 ==

== ENCOUNTER 2020-06-27 11:11 | Outpatient (CLI) | payer MEDICAID | END 2020-06-27 23:59 | disposition home or self-care (01) | LOC: WOUND 11:11 | PROVIDERS: ATTEND Internal Medicine | DX: T81.31XD Disruption of external operation (surgical) wound, not elsewhere classified, subsequent encounter (principal); L59.8 Other specified disorders of the skin and subcutaneous tissue related to radiation; C44.519 Basal cell carcinoma of skin of other part of trunk; L98.491 Non-pressure chronic ulcer of skin of other sites limited to breakdown of skin; I11.0 Hypertensive heart disease with heart failure; I50.9 Heart failure, unspecified; M87.9 Osteonecrosis, unspecified; G47.33 Obstructive sleep apnea (adult) (pediatric); E66.01 Morbid (severe) obesity due to excess calories; Z86.14 Personal history of Methicillin resistant Staphylococcus aureus infection; Z86.718 Personal history of other venous thrombosis and embolism; Z86.711 Personal history of pulmonary embolism; Y84.2 Radiological procedure and radiotherapy as the cause of abnormal reaction of the patient, or of later complication, without mention of misadventure at the time of the procedure; Y83.8 Other surgical procedures as the cause of abnormal reaction of the patient, or of later complication, without mention of misadventure at the time of the procedure | CPT/HCPCS: 97597; 97598 ==

== ENCOUNTER → 2020-06-30 | Outpatient (CLI) | payer MEDICAID | END | disposition home or self-care (01) | LOC: WOUND 10:28 | PROVIDERS: ATTEND Internal Medicine | DX: T81.31XD Disruption of external operation (surgical) wound, not elsewhere classified, subsequent encounter (principal); L59.8 Other specified disorders of the skin and subcutaneous tissue related to radiation; I87.311 Chronic venous hypertension (idiopathic) with ulcer of right lower extremity; L97.811 Non-pressure chronic ulcer of other part of right lower leg limited to breakdown of skin; C44.519 Basal cell carcinoma of skin of other part of trunk; I11.0 Hypertensive heart disease with heart failure; I50.9 Heart failure, unspecified; M87.9 Osteonecrosis, unspecified; G47.33 Obstructive sleep apnea (adult) (pediatric); E66.01 Morbid (severe) obesity due to excess calories; Z68.43 Body mass index [BMI] 50.0-59.9, adult; Z86.14 Personal history of Methicillin resistant Staphylococcus aureus infection; Z86.718 Personal history of other venous thrombosis and embolism; Z86.711 Personal history of pulmonary embolism; Z85.828 Personal history of other malignant neoplasm of skin; Y84.2 Radiological procedure and radiotherapy as the cause of abnormal reaction of the patient, or of later complication, without mention of misadventure at the time of the procedure; Y83.8 Other surgical procedures as the cause of abnormal reaction of the patient, or of later complication, without mention of misadventure at the time of the procedure | CPT/HCPCS: 97606 ==

== ENCOUNTER → 2020-07-02 | Outpatient (CLI) | payer MEDICAID | END | disposition home or self-care (01) | LOC: WOUND 10:48 | PROVIDERS: ATTEND Internal Medicine | DX: T81.31XD Disruption of external operation (surgical) wound, not elsewhere classified, subsequent encounter (principal); L59.8 Other specified disorders of the skin and subcutaneous tissue related to radiation; I87.311 Chronic venous hypertension (idiopathic) with ulcer of right lower extremity; L97.811 Non-pressure chronic ulcer of other part of right lower leg limited to breakdown of skin; C44.519 Basal cell carcinoma of skin of other part of trunk; I11.0 Hypertensive heart disease with heart failure; I50.9 Heart failure, unspecified; M87.9 Osteonecrosis, unspecified; L84 Corns and callosities; G47.33 Obstructive sleep apnea (adult) (pediatric); E66.01 Morbid (severe) obesity due to excess calories; Z68.43 Body mass index [BMI] 50.0-59.9, adult; Z86.14 Personal history of Methicillin resistant Staphylococcus aureus infection; Z86.718 Personal history of other venous thrombosis and embolism; Z86.711 Personal history of pulmonary embolism; Z85.828 Personal history of other malignant neoplasm of skin; Y84.2 Radiological procedure and radiotherapy as the cause of abnormal reaction of the patient, or of later complication, without mention of misadventure at the time of the procedure; Y83.8 Other surgical procedures as the cause of abnormal reaction of the patient, or of later complication, without mention of misadventure at the time of the procedure | CPT/HCPCS: 97606 ==

== ENCOUNTER → 2020-07-04 | Outpatient (CLI) | payer MEDICAID | END | disposition home or self-care (01) | LOC: WOUND 10:10 | PROVIDERS: ATTEND Internal Medicine | DX: T81.31XD Disruption of external operation (surgical) wound, not elsewhere classified, subsequent encounter (principal); L59.8 Other specified disorders of the skin and subcutaneous tissue related to radiation; C44.519 Basal cell carcinoma of skin of other part of trunk; I87.2 Venous insufficiency (chronic) (peripheral); I11.0 Hypertensive heart disease with heart failure; I50.9 Heart failure, unspecified; E66.01 Morbid (severe) obesity due to excess calories; G47.33 Obstructive sleep apnea (adult) (pediatric); Z68.43 Body mass index [BMI] 50.0-59.9, adult; Z86.14 Personal history of Methicillin resistant Staphylococcus aureus infection; Z86.718 Personal history of other venous thrombosis and embolism; Z86.711 Personal history of pulmonary embolism; Y84.2 Radiological procedure and radiotherapy as the cause of abnormal reaction of the patient, or of later complication, without mention of misadventure at the time of the procedure; Y83.8 Other surgical procedures as the cause of abnormal reaction of the patient, or of later complication, without mention of misadventure at the time of the procedure | CPT/HCPCS: 97597; 97598 ==

== ENCOUNTER 2020-07-07 10:10 | Outpatient (CLI) | payer MEDICAID | END 2020-07-07 23:59 | disposition home or self-care (01) | LOC: WOUND 10:10 | PROVIDERS: ATTEND Internal Medicine | DX: T81.31XD Disruption of external operation (surgical) wound, not elsewhere classified, subsequent encounter (principal); L59.8 Other specified disorders of the skin and subcutaneous tissue related to radiation; I87.311 Chronic venous hypertension (idiopathic) with ulcer of right lower extremity; L97.811 Non-pressure chronic ulcer of other part of right lower leg limited to breakdown of skin; C44.519 Basal cell carcinoma of skin of other part of trunk; I11.0 Hypertensive heart disease with heart failure; I50.9 Heart failure, unspecified; M87.9 Osteonecrosis, unspecified; L84 Corns and callosities; G47.33 Obstructive sleep apnea (adult) (pediatric); E66.01 Morbid (severe) obesity due to excess calories; Z68.43 Body mass index [BMI] 50.0-59.9, adult; Z86.14 Personal history of Methicillin resistant Staphylococcus aureus infection; Z86.718 Personal history of other venous thrombosis and embolism; Z86.711 Personal history of pulmonary embolism; Z85.828 Personal history of other malignant neoplasm of skin; Y84.2 Radiological procedure and radiotherapy as the cause of abnormal reaction of the patient, or of later complication, without mention of misadventure at the time of the procedure; Y83.8 Other surgical procedures as the cause of abnormal reaction of the patient, or of later complication, without mention of misadventure at the time of the procedure | CPT/HCPCS: 99213 ==

== ENCOUNTER → 2020-07-11 | Outpatient (CLI) | payer MEDICAID | END | disposition home or self-care (01) | LOC: WOUND 10:17 | PROVIDERS: ATTEND Internal Medicine | DX: T81.31XD Disruption of external operation (surgical) wound, not elsewhere classified, subsequent encounter (principal); L59.8 Other specified disorders of the skin and subcutaneous tissue related to radiation; C44.519 Basal cell carcinoma of skin of other part of trunk; I87.391 Chronic venous hypertension (idiopathic) with other complications of right lower extremity; I11.0 Hypertensive heart disease with heart failure; I50.9 Heart failure, unspecified; E66.01 Morbid (severe) obesity due to excess calories; G47.33 Obstructive sleep apnea (adult) (pediatric); Z68.43 Body mass index [BMI] 50.0-59.9, adult; Z86.14 Personal history of Methicillin resistant Staphylococcus aureus infection; Z86.718 Personal history of other venous thrombosis and embolism; Z86.711 Personal history of pulmonary embolism; Y84.2 Radiological procedure and radiotherapy as the cause of abnormal reaction of the patient, or of later complication, without mention of misadventure at the time of the procedure; Y83.8 Other surgical procedures as the cause of abnormal reaction of the patient, or of later complication, without mention of misadventure at the time of the procedure | CPT/HCPCS: 97597; 97598 ==

== ENCOUNTER → 2020-07-14 | Outpatient (CLI) | payer MEDICAID | END | disposition home or self-care (01) | LOC: WOUND 10:32 | PROVIDERS: ATTEND Internal Medicine | DX: T81.31XD Disruption of external operation (surgical) wound, not elsewhere classified, subsequent encounter (principal); L59.8 Other specified disorders of the skin and subcutaneous tissue related to radiation; I87.311 Chronic venous hypertension (idiopathic) with ulcer of right lower extremity; L97.811 Non-pressure chronic ulcer of other part of right lower leg limited to breakdown of skin; C44.519 Basal cell carcinoma of skin of other part of trunk; I11.0 Hypertensive heart disease with heart failure; I50.9 Heart failure, unspecified; M87.9 Osteonecrosis, unspecified; L84 Corns and callosities; G47.33 Obstructive sleep apnea (adult) (pediatric); E66.01 Morbid (severe) obesity due to excess calories; Z68.43 Body mass index [BMI] 50.0-59.9, adult; Z86.14 Personal history of Methicillin resistant Staphylococcus aureus infection; Z86.718 Personal history of other venous thrombosis and embolism; Z86.711 Personal history of pulmonary embolism; Z85.828 Personal history of other malignant neoplasm of skin; Y84.2 Radiological procedure and radiotherapy as the cause of abnormal reaction of the patient, or of later complication, without mention of misadventure at the time of the procedure; Y83.8 Other surgical procedures as the cause of abnormal reaction of the patient, or of later complication, without mention of misadventure at the time of the procedure | CPT/HCPCS: 99214 ==

== ENCOUNTER 2020-07-18 12:36 | Outpatient (CLI) | payer MEDICAID | END 2020-07-18 23:59 | disposition home or self-care (01) | LOC: WOUND 12:36 | PROVIDERS: ATTEND Internal Medicine | DX: T81.31XD Disruption of external operation (surgical) wound, not elsewhere classified, subsequent encounter (principal); L59.8 Other specified disorders of the skin and subcutaneous tissue related to radiation; C44.519 Basal cell carcinoma of skin of other part of trunk; I87.301 Chronic venous hypertension (idiopathic) without complications of right lower extremity; G47.33 Obstructive sleep apnea (adult) (pediatric); I11.0 Hypertensive heart disease with heart failure; I50.9 Heart failure, unspecified; E66.01 Morbid (severe) obesity due to excess calories; Z68.43 Body mass index [BMI] 50.0-59.9, adult; Z86.14 Personal history of Methicillin resistant Staphylococcus aureus infection; Z79.899 Other long term (current) drug therapy; Z85.828 Personal history of other malignant neoplasm of skin; Z86.711 Personal history of pulmonary embolism; Y84.2 Radiological procedure and radiotherapy as the cause of abnormal reaction of the patient, or of later complication, without mention of misadventure at the time of the procedure; Y83.8 Other surgical procedures as the cause of abnormal reaction of the patient, or of later complication, without mention of misadventure at the time of the procedure | CPT/HCPCS: 97597; 97598 ==

== ENCOUNTER → 2020-07-21 | Outpatient (CLI) | payer MEDICAID | END | disposition home or self-care (01) | LOC: WOUND 12:34 | PROVIDERS: ATTEND Internal Medicine Cardiovascular Disease | DX: T81.31XD Disruption of external operation (surgical) wound, not elsewhere classified, subsequent encounter (principal); L59.8 Other specified disorders of the skin and subcutaneous tissue related to radiation; I87.311 Chronic venous hypertension (idiopathic) with ulcer of right lower extremity; L97.811 Non-pressure chronic ulcer of other part of right lower leg limited to breakdown of skin; C44.519 Basal cell carcinoma of skin of other part of trunk; I11.0 Hypertensive heart disease with heart failure; I50.9 Heart failure, unspecified; M87.9 Osteonecrosis, unspecified; L84 Corns and callosities; G47.33 Obstructive sleep apnea (adult) (pediatric); E66.01 Morbid (severe) obesity due to excess calories; Z68.43 Body mass index [BMI] 50.0-59.9, adult; Z86.14 Personal history of Methicillin resistant Staphylococcus aureus infection; Z86.718 Personal history of other venous thrombosis and embolism; Z86.711 Personal history of pulmonary embolism; Z85.828 Personal history of other malignant neoplasm of skin; Z79.899 Other long term (current) drug therapy; Y84.2 Radiological procedure and radiotherapy as the cause of abnormal reaction of the patient, or of later complication, without mention of misadventure at the time of the procedure; Y83.8 Other surgical procedures as the cause of abnormal reaction of the patient, or of later complication, without mention of misadventure at the time of the procedure | CPT/HCPCS: 99214 ==

== ENCOUNTER 2020-07-25 08:43 | Outpatient (CLI) | payer MEDICAID | END 2020-07-25 23:59 | disposition home or self-care (01) | LOC: WOUND 08:43 | PROVIDERS: ATTEND Internal Medicine | DX: T81.31XD Disruption of external operation (surgical) wound, not elsewhere classified, subsequent encounter (principal); L59.8 Other specified disorders of the skin and subcutaneous tissue related to radiation; I87.311 Chronic venous hypertension (idiopathic) with ulcer of right lower extremity; L97.811 Non-pressure chronic ulcer of other part of right lower leg limited to breakdown of skin; C44.519 Basal cell carcinoma of skin of other part of trunk; I11.0 Hypertensive heart disease with heart failure; I50.9 Heart failure, unspecified; M87.9 Osteonecrosis, unspecified; L84 Corns and callosities; G47.33 Obstructive sleep apnea (adult) (pediatric); E66.01 Morbid (severe) obesity due to excess calories; Z68.43 Body mass index [BMI] 50.0-59.9, adult; Z86.14 Personal history of Methicillin resistant Staphylococcus aureus infection; Z86.718 Personal history of other venous thrombosis and embolism; Z86.711 Personal history of pulmonary embolism; Z85.828 Personal history of other malignant neoplasm of skin; Z79.899 Other long term (current) drug therapy; Y84.2 Radiological procedure and radiotherapy as the cause of abnormal reaction of the patient, or of later complication, without mention of misadventure at the time of the procedure; Y83.8 Other surgical procedures as the cause of abnormal reaction of the patient, or of later complication, without mention of misadventure at the time of the procedure | CPT/HCPCS: 97597; 97598 ==

== ENCOUNTER → 2020-07-28 | Outpatient (CLI) | payer MEDICAID | END | disposition home or self-care (01) | LOC: WOUND 12:44 | PROVIDERS: ATTEND Internal Medicine | DX: T81.31XD Disruption of external operation (surgical) wound, not elsewhere classified, subsequent encounter (principal); L59.8 Other specified disorders of the skin and subcutaneous tissue related to radiation; M87.9 Osteonecrosis, unspecified; I87.311 Chronic venous hypertension (idiopathic) with ulcer of right lower extremity; L97.811 Non-pressure chronic ulcer of other part of right lower leg limited to breakdown of skin; C44.519 Basal cell carcinoma of skin of other part of trunk; I11.0 Hypertensive heart disease with heart failure; I50.9 Heart failure, unspecified; L84 Corns and callosities; G47.33 Obstructive sleep apnea (adult) (pediatric); E66.01 Morbid (severe) obesity due to excess calories; Z68.43 Body mass index [BMI] 50.0-59.9, adult; Z86.14 Personal history of Methicillin resistant Staphylococcus aureus infection; Z86.718 Personal history of other venous thrombosis and embolism; Z86.711 Personal history of pulmonary embolism; Z85.828 Personal history of other malignant neoplasm of skin; Z79.899 Other long term (current) drug therapy; Y84.2 Radiological procedure and radiotherapy as the cause of abnormal reaction of the patient, or of later complication, without mention of misadventure at the time of the procedure; Y83.8 Other surgical procedures as the cause of abnormal reaction of the patient, or of later complication, without mention of misadventure at the time of the procedure | CPT/HCPCS: 99214 ==

== ENCOUNTER 2020-08-01 08:48 | Outpatient (CLI) | payer MEDICAID | END 2020-08-01 23:59 | disposition home or self-care (01) | LOC: WOUND 08:48 | PROVIDERS: ATTEND Internal Medicine | DX: T81.31XD Disruption of external operation (surgical) wound, not elsewhere classified, subsequent encounter (principal); I87.311 Chronic venous hypertension (idiopathic) with ulcer of right lower extremity; L97.811 Non-pressure chronic ulcer of other part of right lower leg limited to breakdown of skin; L59.8 Other specified disorders of the skin and subcutaneous tissue related to radiation; C44.519 Basal cell carcinoma of skin of other part of trunk; E66.01 Morbid (severe) obesity due to excess calories; M87.9 Osteonecrosis, unspecified; I11.0 Hypertensive heart disease with heart failure; I50.9 Heart failure, unspecified; L84 Corns and callosities; G47.33 Obstructive sleep apnea (adult) (pediatric); Z68.43 Body mass index [BMI] 50.0-59.9, adult; Z86.14 Personal history of Methicillin resistant Staphylococcus aureus infection; Z86.718 Personal history of other venous thrombosis and embolism; Z86.711 Personal history of pulmonary embolism; Z85.828 Personal history of other malignant neoplasm of skin; Z79.899 Other long term (current) drug therapy; Y84.2 Radiological procedure and radiotherapy as the cause of abnormal reaction of the patient, or of later complication, without mention of misadventure at the time of the procedure; Y83.8 Other surgical procedures as the cause of abnormal reaction of the patient, or of later complication, without mention of misadventure at the time of the procedure | CPT/HCPCS: 97597 ==

== ENCOUNTER → 2020-08-04 | Outpatient (CLI) | payer MEDICAID | END | disposition home or self-care (01) | LOC: WOUND 09:37 | PROVIDERS: ATTEND Internal Medicine | DX: T81.31XD Disruption of external operation (surgical) wound, not elsewhere classified, subsequent encounter (principal); L59.8 Other specified disorders of the skin and subcutaneous tissue related to radiation; M87.9 Osteonecrosis, unspecified; I87.311 Chronic venous hypertension (idiopathic) with ulcer of right lower extremity; L97.811 Non-pressure chronic ulcer of other part of right lower leg limited to breakdown of skin; C44.519 Basal cell carcinoma of skin of other part of trunk; I11.0 Hypertensive heart disease with heart failure; I50.9 Heart failure, unspecified; L84 Corns and callosities; G47.33 Obstructive sleep apnea (adult) (pediatric); E66.01 Morbid (severe) obesity due to excess calories; Z68.43 Body mass index [BMI] 50.0-59.9, adult; Z86.14 Personal history of Methicillin resistant Staphylococcus aureus infection; Z86.718 Personal history of other venous thrombosis and embolism; Z86.711 Personal history of pulmonary embolism; Z85.828 Personal history of other malignant neoplasm of skin; Z79.899 Other long term (current) drug therapy; Y84.2 Radiological procedure and radiotherapy as the cause of abnormal reaction of the patient, or of later complication, without mention of misadventure at the time of the procedure; Y83.8 Other surgical procedures as the cause of abnormal reaction of the patient, or of later complication, without mention of misadventure at the time of the procedure | CPT/HCPCS: 99214 ==

== ENCOUNTER → 2020-08-08 | Outpatient (CLI) | payer MEDICAID | END | disposition home or self-care (01) | LOC: WOUND 09:06 | PROVIDERS: ATTEND Internal Medicine | DX: T81.31XD Disruption of external operation (surgical) wound, not elsewhere classified, subsequent encounter (principal); L59.8 Other specified disorders of the skin and subcutaneous tissue related to radiation; L98.422 Non-pressure chronic ulcer of back with fat layer exposed; C44.519 Basal cell carcinoma of skin of other part of trunk; I87.311 Chronic venous hypertension (idiopathic) with ulcer of right lower extremity; L97.811 Non-pressure chronic ulcer of other part of right lower leg limited to breakdown of skin; I11.0 Hypertensive heart disease with heart failure; I50.9 Heart failure, unspecified; G47.33 Obstructive sleep apnea (adult) (pediatric); E66.01 Morbid (severe) obesity due to excess calories; Z86.14 Personal history of Methicillin resistant Staphylococcus aureus infection; Z85.828 Personal history of other malignant neoplasm of skin; Z86.718 Personal history of other venous thrombosis and embolism; Z86.711 Personal history of pulmonary embolism; Z79.899 Other long term (current) drug therapy; Y83.8 Other surgical procedures as the cause of abnormal reaction of the patient, or of later complication, without mention of misadventure at the time of the procedure; Y84.2 Radiological procedure and radiotherapy as the cause of abnormal reaction of the patient, or of later complication, without mention of misadventure at the time of the procedure | CPT/HCPCS: 97597 ==

== ENCOUNTER → 2020-08-18 | Outpatient (CLI) | payer MEDICAID | END | disposition home or self-care (01) | LOC: WOUND 09:06 | PROVIDERS: ATTEND Internal Medicine | DX: T81.31XD Disruption of external operation (surgical) wound, not elsewhere classified, subsequent encounter (principal); I87.311 Chronic venous hypertension (idiopathic) with ulcer of right lower extremity; L97.811 Non-pressure chronic ulcer of other part of right lower leg limited to breakdown of skin; L59.8 Other specified disorders of the skin and subcutaneous tissue related to radiation; C44.519 Basal cell carcinoma of skin of other part of trunk; I11.0 Hypertensive heart disease with heart failure; I50.9 Heart failure, unspecified; G47.33 Obstructive sleep apnea (adult) (pediatric); E66.01 Morbid (severe) obesity due to excess calories; Z68.43 Body mass index [BMI] 50.0-59.9, adult; Z86.14 Personal history of Methicillin resistant Staphylococcus aureus infection; Z85.828 Personal history of other malignant neoplasm of skin; Z86.718 Personal history of other venous thrombosis and embolism; Z86.711 Personal history of pulmonary embolism; Z79.899 Other long term (current) drug therapy; Y83.8 Other surgical procedures as the cause of abnormal reaction of the patient, or of later complication, without mention of misadventure at the time of the procedure; Y84.2 Radiological procedure and radiotherapy as the cause of abnormal reaction of the patient, or of later complication, without mention of misadventure at the time of the procedure | CPT/HCPCS: 99214 ==

== ENCOUNTER 2020-08-22 12:56 | Outpatient (CLI) | payer MEDICAID | END 2020-08-22 23:59 | disposition home or self-care (01) | LOC: WOUND 12:56 | PROVIDERS: ATTEND Internal Medicine | DX: T81.31XD Disruption of external operation (surgical) wound, not elsewhere classified, subsequent encounter (principal); I87.311 Chronic venous hypertension (idiopathic) with ulcer of right lower extremity; L97.811 Non-pressure chronic ulcer of other part of right lower leg limited to breakdown of skin; L59.8 Other specified disorders of the skin and subcutaneous tissue related to radiation; M87.9 Osteonecrosis, unspecified; C44.519 Basal cell carcinoma of skin of other part of trunk; I11.0 Hypertensive heart disease with heart failure; I50.9 Heart failure, unspecified; G47.33 Obstructive sleep apnea (adult) (pediatric); E66.01 Morbid (severe) obesity due to excess calories; Z68.43 Body mass index [BMI] 50.0-59.9, adult; Z86.14 Personal history of Methicillin resistant Staphylococcus aureus infection; Z85.828 Personal history of other malignant neoplasm of skin; Z86.718 Personal history of other venous thrombosis and embolism; Z86.711 Personal history of pulmonary embolism; Z79.899 Other long term (current) drug therapy; Y83.8 Other surgical procedures as the cause of abnormal reaction of the patient, or of later complication, without mention of misadventure at the time of the procedure; Y84.2 Radiological procedure and radiotherapy as the cause of abnormal reaction of the patient, or of later complication, without mention of misadventure at the time of the procedure | CPT/HCPCS: 97597 ==

== ENCOUNTER 2020-09-19 08:05 | Outpatient (CLI) | payer MEDICAID | END 2020-09-19 23:59 | disposition home or self-care (01) | LOC: WOUND 08:05 | PROVIDERS: ATTEND Internal Medicine | DX: T81.31XD Disruption of external operation (surgical) wound, not elsewhere classified, subsequent encounter (principal); L59.8 Other specified disorders of the skin and subcutaneous tissue related to radiation; I87.311 Chronic venous hypertension (idiopathic) with ulcer of right lower extremity; L97.811 Non-pressure chronic ulcer of other part of right lower leg limited to breakdown of skin; M87.9 Osteonecrosis, unspecified; C44.519 Basal cell carcinoma of skin of other part of trunk; I11.0 Hypertensive heart disease with heart failure; I50.9 Heart failure, unspecified; L84 Corns and callosities; G47.33 Obstructive sleep apnea (adult) (pediatric); E66.01 Morbid (severe) obesity due to excess calories; Z68.43 Body mass index [BMI] 50.0-59.9, adult; Z86.14 Personal history of Methicillin resistant Staphylococcus aureus infection; Z85.828 Personal history of other malignant neoplasm of skin; Z86.718 Personal history of other venous thrombosis and embolism; Z86.711 Personal history of pulmonary embolism; Z79.899 Other long term (current) drug therapy; Y83.8 Other surgical procedures as the cause of abnormal reaction of the patient, or of later complication, without mention of misadventure at the time of the procedure; Y84.2 Radiological procedure and radiotherapy as the cause of abnormal reaction of the patient, or of later complication, without mention of misadventure at the time of the procedure | CPT/HCPCS: 97597 ==

== ENCOUNTER → 2020-10-03 | Outpatient (CLI) | payer MEDICAID | END | disposition home or self-care (01) | LOC: WOUND 12:27 | PROVIDERS: ATTEND Internal Medicine | DX: L59.8 Other specified disorders of the skin and subcutaneous tissue related to radiation (principal); M87.9 Osteonecrosis, unspecified; I87.311 Chronic venous hypertension (idiopathic) with ulcer of right lower extremity; L97.811 Non-pressure chronic ulcer of other part of right lower leg limited to breakdown of skin; C44.519 Basal cell carcinoma of skin of other part of trunk; I11.0 Hypertensive heart disease with heart failure; I50.9 Heart failure, unspecified; L84 Corns and callosities; G47.33 Obstructive sleep apnea (adult) (pediatric); E66.01 Morbid (severe) obesity due to excess calories; Z68.43 Body mass index [BMI] 50.0-59.9, adult; Z86.14 Personal history of Methicillin resistant Staphylococcus aureus infection; Z85.828 Personal history of other malignant neoplasm of skin; Z86.718 Personal history of other venous thrombosis and embolism; Z86.711 Personal history of pulmonary embolism; Z79.899 Other long term (current) drug therapy; Y84.2 Radiological procedure and radiotherapy as the cause of abnormal reaction of the patient, or of later complication, without mention of misadventure at the time of the procedure | CPT/HCPCS: 97597 ==

== ENCOUNTER → 2020-10-17 | Outpatient (CLI) | payer MEDICAID | END | disposition home or self-care (01) | LOC: WOUND 12:42 | PROVIDERS: ATTEND Internal Medicine | DX: T81.31XD Disruption of external operation (surgical) wound, not elsewhere classified, subsequent encounter (principal); L59.8 Other specified disorders of the skin and subcutaneous tissue related to radiation; I87.311 Chronic venous hypertension (idiopathic) with ulcer of right lower extremity; L97.811 Non-pressure chronic ulcer of other part of right lower leg limited to breakdown of skin; M87.9 Osteonecrosis, unspecified; C44.519 Basal cell carcinoma of skin of other part of trunk; I11.0 Hypertensive heart disease with heart failure; L84 Corns and callosities; G47.33 Obstructive sleep apnea (adult) (pediatric); E66.01 Morbid (severe) obesity due to excess calories; Z68.43 Body mass index [BMI] 50.0-59.9, adult; Z86.14 Personal history of Methicillin resistant Staphylococcus aureus infection; Z85.828 Personal history of other malignant neoplasm of skin; Z86.718 Personal history of other venous thrombosis and embolism; Z86.711 Personal history of pulmonary embolism; Z79.899 Other long term (current) drug therapy; Y84.2 Radiological procedure and radiotherapy as the cause of abnormal reaction of the patient, or of later complication, without mention of misadventure at the time of the procedure; Y83.8 Other surgical procedures as the cause of abnormal reaction of the patient, or of later complication, without mention of misadventure at the time of the procedure | CPT/HCPCS: 97597 ==

== ENCOUNTER → 2020-10-24 | Outpatient (CLI) | payer MEDICAID | END | disposition home or self-care (01) | LOC: WOUND 08:02 | PROVIDERS: ATTEND Internal Medicine | DX: L59.8 Other specified disorders of the skin and subcutaneous tissue related to radiation (principal); C44.519 Basal cell carcinoma of skin of other part of trunk; T81.31XD Disruption of external operation (surgical) wound, not elsewhere classified, subsequent encounter; I87.311 Chronic venous hypertension (idiopathic) with ulcer of right lower extremity; L97.811 Non-pressure chronic ulcer of other part of right lower leg limited to breakdown of skin; I11.0 Hypertensive heart disease with heart failure; I50.9 Heart failure, unspecified; G47.33 Obstructive sleep apnea (adult) (pediatric); E66.01 Morbid (severe) obesity due to excess calories; Z68.43 Body mass index [BMI] 50.0-59.9, adult; Z86.14 Personal history of Methicillin resistant Staphylococcus aureus infection; Z79.899 Other long term (current) drug therapy; Z86.718 Personal history of other venous thrombosis and embolism; Z86.711 Personal history of pulmonary embolism; Y83.8 Other surgical procedures as the cause of abnormal reaction of the patient, or of later complication, without mention of misadventure at the time of the procedure; Y84.2 Radiological procedure and radiotherapy as the cause of abnormal reaction of the patient, or of later complication, without mention of misadventure at the time of the procedure | CPT/HCPCS: 97597 ==

== ENCOUNTER → 2020-11-07 | Outpatient (CLI) | payer MEDICAID | END | disposition home or self-care (01) | LOC: WOUND 08:05 | PROVIDERS: ATTEND Internal Medicine | DX: T81.31XD Disruption of external operation (surgical) wound, not elsewhere classified, subsequent encounter (principal); L59.8 Other specified disorders of the skin and subcutaneous tissue related to radiation; C44.519 Basal cell carcinoma of skin of other part of trunk; I87.301 Chronic venous hypertension (idiopathic) without complications of right lower extremity; I11.0 Hypertensive heart disease with heart failure; I50.9 Heart failure, unspecified; E66.01 Morbid (severe) obesity due to excess calories; G47.33 Obstructive sleep apnea (adult) (pediatric); Z68.43 Body mass index [BMI] 50.0-59.9, adult; Z86.14 Personal history of Methicillin resistant Staphylococcus aureus infection; Z86.718 Personal history of other venous thrombosis and embolism; Z86.711 Personal history of pulmonary embolism; Z79.899 Other long term (current) drug therapy; Y83.8 Other surgical procedures as the cause of abnormal reaction of the patient, or of later complication, without mention of misadventure at the time of the procedure; Y84.2 Radiological procedure and radiotherapy as the cause of abnormal reaction of the patient, or of later complication, without mention of misadventure at the time of the procedure | CPT/HCPCS: 97597 ==

== ENCOUNTER 2020-11-21 07:56 | Outpatient (CLI) | payer MEDICAID | END 2020-11-21 23:59 | disposition home or self-care (01) | LOC: WOUND 07:56 | PROVIDERS: ATTEND Internal Medicine | DX: L59.8 Other specified disorders of the skin and subcutaneous tissue related to radiation (principal); T81.31XD Disruption of external operation (surgical) wound, not elsewhere classified, subsequent encounter; I87.311 Chronic venous hypertension (idiopathic) with ulcer of right lower extremity; L97.811 Non-pressure chronic ulcer of other part of right lower leg limited to breakdown of skin; C44.519 Basal cell carcinoma of skin of other part of trunk; I11.0 Hypertensive heart disease with heart failure; I50.9 Heart failure, unspecified; G47.33 Obstructive sleep apnea (adult) (pediatric); L84 Corns and callosities; E66.01 Morbid (severe) obesity due to excess calories; Z68.43 Body mass index [BMI] 50.0-59.9, adult; Z79.899 Other long term (current) drug therapy; Z86.14 Personal history of Methicillin resistant Staphylococcus aureus infection; Z86.718 Personal history of other venous thrombosis and embolism; Z86.711 Personal history of pulmonary embolism; Y83.8 Other surgical procedures as the cause of abnormal reaction of the patient, or of later complication, without mention of misadventure at the time of the procedure; Y84.2 Radiological procedure and radiotherapy as the cause of abnormal reaction of the patient, or of later complication, without mention of misadventure at the time of the procedure | CPT/HCPCS: 97597 ==

== ENCOUNTER 2020-11-28 07:57 | Outpatient (CLI) | payer MEDICAID | END 2020-11-28 23:59 | disposition home or self-care (01) | LOC: WOUND 07:57 | PROVIDERS: ATTEND Internal Medicine | DX: T81.31XD Disruption of external operation (surgical) wound, not elsewhere classified, subsequent encounter (principal); C44.519 Basal cell carcinoma of skin of other part of trunk; I87.311 Chronic venous hypertension (idiopathic) with ulcer of right lower extremity; L97.811 Non-pressure chronic ulcer of other part of right lower leg limited to breakdown of skin; L59.8 Other specified disorders of the skin and subcutaneous tissue related to radiation; L03.115 Cellulitis of right lower limb; I11.0 Hypertensive heart disease with heart failure; I50.9 Heart failure, unspecified; G47.33 Obstructive sleep apnea (adult) (pediatric); E66.01 Morbid (severe) obesity due to excess calories; Z68.43 Body mass index [BMI] 50.0-59.9, adult; Z85.828 Personal history of other malignant neoplasm of skin; Z79.899 Other long term (current) drug therapy; Z86.14 Personal history of Methicillin resistant Staphylococcus aureus infection; Z86.711 Personal history of pulmonary embolism; Y84.2 Radiological procedure and radiotherapy as the cause of abnormal reaction of the patient, or of later complication, without mention of misadventure at the time of the procedure; Y83.8 Other surgical procedures as the cause of abnormal reaction of the patient, or of later complication, without mention of misadventure at the time of the procedure | CPT/HCPCS: 97597 ==

== ENCOUNTER → 2020-12-05 | Outpatient (CLI) | payer MEDICAID | END | disposition home or self-care (01) | LOC: WOUND 08:09 | PROVIDERS: ATTEND Internal Medicine | DX: T81.31XD Disruption of external operation (surgical) wound, not elsewhere classified, subsequent encounter (principal); L59.8 Other specified disorders of the skin and subcutaneous tissue related to radiation; C44.519 Basal cell carcinoma of skin of other part of trunk; I87.301 Chronic venous hypertension (idiopathic) without complications of right lower extremity; I11.0 Hypertensive heart disease with heart failure; I50.9 Heart failure, unspecified; E66.01 Morbid (severe) obesity due to excess calories; G47.33 Obstructive sleep apnea (adult) (pediatric); Z68.43 Body mass index [BMI] 50.0-59.9, adult; Z86.14 Personal history of Methicillin resistant Staphylococcus aureus infection; Z86.718 Personal history of other venous thrombosis and embolism; Z86.711 Personal history of pulmonary embolism; Z79.899 Other long term (current) drug therapy; Y83.8 Other surgical procedures as the cause of abnormal reaction of the patient, or of later complication, without mention of misadventure at the time of the procedure; Y84.2 Radiological procedure and radiotherapy as the cause of abnormal reaction of the patient, or of later complication, without mention of misadventure at the time of the procedure | CPT/HCPCS: 97597 ==

== ENCOUNTER 2020-12-12 08:00 | Outpatient (CLI) | payer MEDICAID | END 2020-12-12 23:59 | disposition home or self-care (01) | LOC: WOUND 08:00 | PROVIDERS: ATTEND Internal Medicine | DX: T81.31XD Disruption of external operation (surgical) wound, not elsewhere classified, subsequent encounter (principal); L59.8 Other specified disorders of the skin and subcutaneous tissue related to radiation; C44.519 Basal cell carcinoma of skin of other part of trunk; I87.301 Chronic venous hypertension (idiopathic) without complications of right lower extremity; I11.0 Hypertensive heart disease with heart failure; I50.9 Heart failure, unspecified; L84 Corns and callosities; E66.01 Morbid (severe) obesity due to excess calories; G47.33 Obstructive sleep apnea (adult) (pediatric); Z68.43 Body mass index [BMI] 50.0-59.9, adult; Z86.14 Personal history of Methicillin resistant Staphylococcus aureus infection; Z86.718 Personal history of other venous thrombosis and embolism; Z86.711 Personal history of pulmonary embolism; Z79.899 Other long term (current) drug therapy; Y83.8 Other surgical procedures as the cause of abnormal reaction of the patient, or of later complication, without mention of misadventure at the time of the procedure; Y84.2 Radiological procedure and radiotherapy as the cause of abnormal reaction of the patient, or of later complication, without mention of misadventure at the time of the procedure | CPT/HCPCS: 97597 ==

== ENCOUNTER 2021-01-02 14:07 | Outpatient (CLI) | payer MEDICAID | END 2021-01-02 23:59 | disposition home or self-care (01) | LOC: WOUND 14:07 | PROVIDERS: ATTEND Internal Medicine | DX: T81.31XD Disruption of external operation (surgical) wound, not elsewhere classified, subsequent encounter (principal); L59.8 Other specified disorders of the skin and subcutaneous tissue related to radiation; C44.519 Basal cell carcinoma of skin of other part of trunk; I87.301 Chronic venous hypertension (idiopathic) without complications of right lower extremity; I11.0 Hypertensive heart disease with heart failure; I50.9 Heart failure, unspecified; L84 Corns and callosities; E66.01 Morbid (severe) obesity due to excess calories; Z68.43 Body mass index [BMI] 50.0-59.9, adult; G47.33 Obstructive sleep apnea (adult) (pediatric); Z86.14 Personal history of Methicillin resistant Staphylococcus aureus infection; Z86.718 Personal history of other venous thrombosis and embolism; Z86.711 Personal history of pulmonary embolism; Z79.899 Other long term (current) drug therapy; Y83.8 Other surgical procedures as the cause of abnormal reaction of the patient, or of later complication, without mention of misadventure at the time of the procedure; Y84.2 Radiological procedure and radiotherapy as the cause of abnormal reaction of the patient, or of later complication, without mention of misadventure at the time of the procedure | CPT/HCPCS: 97597 ==

== ENCOUNTER 2021-01-09 07:58 | Outpatient (CLI) | payer MEDICAID | END 2021-01-09 23:59 | disposition home or self-care (01) | LOC: WOUND 07:58 | PROVIDERS: ATTEND Internal Medicine | DX: T81.31XD Disruption of external operation (surgical) wound, not elsewhere classified, subsequent encounter (principal); L59.8 Other specified disorders of the skin and subcutaneous tissue related to radiation; C44.519 Basal cell carcinoma of skin of other part of trunk; I87.311 Chronic venous hypertension (idiopathic) with ulcer of right lower extremity; L97.811 Non-pressure chronic ulcer of other part of right lower leg limited to breakdown of skin; I11.0 Hypertensive heart disease with heart failure; I50.9 Heart failure, unspecified; G47.33 Obstructive sleep apnea (adult) (pediatric); E66.01 Morbid (severe) obesity due to excess calories; Z68.43 Body mass index [BMI] 50.0-59.9, adult; Z79.899 Other long term (current) drug therapy; Z86.14 Personal history of Methicillin resistant Staphylococcus aureus infection; Z86.718 Personal history of other venous thrombosis and embolism; Z86.711 Personal history of pulmonary embolism; Y84.2 Radiological procedure and radiotherapy as the cause of abnormal reaction of the patient, or of later complication, without mention of misadventure at the time of the procedure; Y83.8 Other surgical procedures as the cause of abnormal reaction of the patient, or of later complication, without mention of misadventure at the time of the procedure | CPT/HCPCS: 97597 ==

== ENCOUNTER 2021-01-16 08:13 | Outpatient (CLI) | payer MEDICAID | END 2021-01-16 23:59 | disposition home or self-care (01) | LOC: WOUND 08:13 | PROVIDERS: ATTEND Internal Medicine | DX: T81.31XD Disruption of external operation (surgical) wound, not elsewhere classified, subsequent encounter (principal); L59.8 Other specified disorders of the skin and subcutaneous tissue related to radiation; C44.519 Basal cell carcinoma of skin of other part of trunk; I87.311 Chronic venous hypertension (idiopathic) with ulcer of right lower extremity; L97.811 Non-pressure chronic ulcer of other part of right lower leg limited to breakdown of skin; I11.0 Hypertensive heart disease with heart failure; I50.9 Heart failure, unspecified; G47.33 Obstructive sleep apnea (adult) (pediatric); E66.01 Morbid (severe) obesity due to excess calories; Z68.43 Body mass index [BMI] 50.0-59.9, adult; Z79.899 Other long term (current) drug therapy; Z86.14 Personal history of Methicillin resistant Staphylococcus aureus infection; Z86.718 Personal history of other venous thrombosis and embolism; Z86.711 Personal history of pulmonary embolism; Y84.2 Radiological procedure and radiotherapy as the cause of abnormal reaction of the patient, or of later complication, without mention of misadventure at the time of the procedure; Y83.8 Other surgical procedures as the cause of abnormal reaction of the patient, or of later complication, without mention of misadventure at the time of the procedure | CPT/HCPCS: 99213 ==

== ENCOUNTER 2021-01-30 08:04 | Outpatient (CLI) | payer MEDICAID | END 2021-01-30 23:59 | disposition home or self-care (01) | LOC: WOUND 08:04 | PROVIDERS: ATTEND Internal Medicine | DX: T81.31XD Disruption of external operation (surgical) wound, not elsewhere classified, subsequent encounter (principal); I87.311 Chronic venous hypertension (idiopathic) with ulcer of right lower extremity; L97.811 Non-pressure chronic ulcer of other part of right lower leg limited to breakdown of skin; C44.519 Basal cell carcinoma of skin of other part of trunk; I11.0 Hypertensive heart disease with heart failure; I50.9 Heart failure, unspecified; G47.33 Obstructive sleep apnea (adult) (pediatric); E66.01 Morbid (severe) obesity due to excess calories; Z68.43 Body mass index [BMI] 50.0-59.9, adult; Z79.899 Other long term (current) drug therapy; Z86.14 Personal history of Methicillin resistant Staphylococcus aureus infection; Z86.718 Personal history of other venous thrombosis and embolism; Z86.711 Personal history of pulmonary embolism; Y83.8 Other surgical procedures as the cause of abnormal reaction of the patient, or of later complication, without mention of misadventure at the time of the procedure | CPT/HCPCS: 99213 ==